=== PATIENT | female | born 1980 | race Caucasian/White ===

== ENCOUNTER 2023-08-06 09:53 | Outpatient (OUT) | payer OTHER, SELFPAY ==
--- NOTE | 2023-08-06 10:05 | MM_ITS ---
Patient Name: DIANE CONRAD MR#: [id number] : 1980 Exam Date: 08/06/2023 Ordering Doctor: DR Carlyle Moseley . RADIOLOGY REPORT PROCEDURE: MM TOMOSYNTHESIS SCREENING BI COMPARISON: MG MAMM SCREEN 3D UYEN CAD, 07/31/2022. INDICATIONS: Screening Calculator Name NCI Breast Cancer Risk Assessment Tool 5 Year Breast Cancer Risk 0.80% Lifetime Breast Cancer Risk 13.50% Personal Breast Cancer No Personal Ovarian Cancer No Treatments None Family Cancers Grandmother-maternal with uterine cancer at age ~55. LOCATION: [facility] BREAST COMPOSITION: Heterogeneously dense,which may obscure small masses. FINDINGS: DIAGNOSTIC CATEGORY 1--NEGATIVE. RIGHT BREAST: No significant suspicious finding. No significant change has occurred. LEFT BREAST: No significant suspicious finding. No significant change has occurred. RECOMMENDATIONS: ROUTINE MAMMOGRAM AND CLINICAL EVALUATION IN 12 MONTHS. PLEASE NOTE: A NORMAL MAMMOGRAM DOES NOT EXCLUDE THE POSSIBILITY OF BREAST CANCER. A CLINICALLY SUSPICIOUS PALPABLE LUMP SHOULD BE BIOPSIED. Dictated by: Roberto Alvarez M.D. on 08/06/2023 at 15:03 Approved by: Roberto Alvarez M.D. on 08/06/2023 at 15:06
== END 2023-08-06 09:54 | disposition home or self-care (01) ==
PROVIDERS: PCP Family Medicine; Visit Provider Obstetrics & Gynecology
DX: Z12.31 Encounter for screening mammogram for malignant neoplasm of breast (principal); Z80.8 Family history of malignant neoplasm of other organs or systems
CPT/HCPCS: 77063; 77067

== ENCOUNTER 2024-04-10 05:44 | Emergency (ER) | payer OTHER, SELFPAY ==
[2024-04-10 05:46] VITALS: BP 164/87; PULSE 98; TEMP 36.4; O2SAT 98; BMI 33.7
--- NOTE | 2024-04-10 06:07 | CT_ITS ---
[address] [address] Patient Name: DIANE CONRAD MRN: [id number] date: 1980 Sex: F Assigned Patient Location: ED.MAIN Current Patient Location: ED.MAIN Accession/Order Number: [id number] Exam Date: 04/10/2024 06:37 Report Date: 04/10/2024 06:59 At the request of: STEVEN JEWELL Procedure: CT abdomen pelvis w con EXAMINATION: CT abdomen pelvis w con HISTORY: epigastic pain COMPARISON: No relevant comparison available. TECHNIQUE: Axial, Coronal, and Sagittal images were obtained without and/or with IV contrast as indicated by examination type. Dose reduction techniques were achieved by using automated exposure control and/or adjustment of mA and/or kV according to patient size and/or use of iterative reconstruction technique. FINDINGS: LUNG BASES: No visible pulmonary or pleural disease. LIVER: No enlargement, atrophy, suspicious density, or significant focal lesion. BILIARY: No dilatation or calcification. PANCREAS: No lesion, fluid collection, or abnormal duct dilatation. SPLEEN: No enlargement or focal lesion. ADRENALS: No mass or enlargement. KIDNEYS: No mass, obstruction, or calcification. BOWEL/MESENTERY: No visible mass, obstruction, or bowel wall thickening. Normal appendix. AORTA/VASCULAR: No aneurysm or dissection. RETROPERITONEUM: No mass or adenopathy. LYMPH NODES: No adenopathy. URINARY BLADDER: No visible focal wall thickening, lesion, or calculus. PELVIC ORGANS: 1.8 cm left ovarian cyst. IUD within endometrial cavity. ABDOMINAL WALL: Tiny fat filled paraumbilical hernia without strangulation. BONES: No bony lesion or fracture. OTHER: Negative. CT/CT abdomen pelvis w con IMPRESSION: 1. Left ovary contains a 1.8 cm cyst of uncertain clinical significance. 2. Tiny fat filled paraumbilical hernia without strangulation. 3. Otherwise unremarkable abdomen and pelvis. Electronically authenticated by: АЛЕКСАНДР CHEUNG Date: 04/10/2024 06:59
--- NOTE | 2024-04-10 06:09 | ECG_ITS ---
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
--- NOTE | 2024-04-10 06:11 | ED.ABDPAIN1 ---
HPI - Abdominal Pain General Chief Complaint: Abdominal Pain Stated Complaint: ABDOMINAL PAIN Time Seen by Provider: 04/10/24 05:47 Source: patient Mode of arrival: walk-in Limitations: no limitations History of Present Illness HPI narrative: 43-year-old female to the emergency department with chief complaint of upper abdominal pain. Is cramping in nature. She says it is 10 out of 10 pain that started 2 AM. She has had similar symptoms with reflux in the past however this feels more severe. Is associated with nausea without vomiting. No fever, sweats, chills. No diarrhea. No chest pain or shortness of breath. She took some Pepcid at home which did not relieve. Related Data Home Medications ?Medication ?Instructions ?Recorded ?Confirmed ezetimibe 10 mg tablet 10 mg PO DAILY 04/10/24 04/10/24 famotidine 40 mg tablet (Pepcid) 40 mg PO DAILY 04/10/24 04/10/24 rosuvastatin 5 mg tablet 5 mg PO DAILY 04/10/24 04/10/24 Allergies Allergy/AdvReac Type Severity Reaction Status Date / Time doxycycline AdvReac Intermediate Abdominal Verified 04/10/24 05:53 Pain Review of Systems ROS Status of ROS 10 or more systems reviewed and unremarkable except as noted in history and below PFSH PFSH Social History Little interest or pleasure in doing things: not at all Feeling down, depressed, or hopeless: not at all Exam Narrative Exam Narrative: VITALS: I have reviewed the triage vital signs. GENERAL: Well developed, well appearing adult in no acute distress. NEURO: Alert and oriented. Moves all extremities. Face is symmetric and expressive. EYES: PERRL. No scleral icterus or conjunctival injection. No discharge. HENT: Normocephalic, atraumatic. Hearing is grossly intact. Nares grossly patent and without discharge. Mucous membranes moist. NECK: No JVD. Patient moves neck without restriction. CARDIO: Rhythm regular. Normal rate. No murmur, rub, or gallop. Pulses equal bilaterally in the upper and lower extremity. No lower extremity edema. PULM: Lungs clear to auscultation in all [place]. No wheezes, rales, or rhonchi. No conversational dyspnea. No splinting, stridor, or accessory muscle use. GI/: Abdomen is soft. Epigastric pain. Normoactive bowel sounds. EXTREMITIES: Symmetric muscle bulk. No joint swelling. No clubbing, cyanosis, or deformity. SKIN: Warm and dry. Normal turgor. No rash or lesions appreciated. PSYCH: Mood, affect, and interaction is appropriate to the setting. Constitutional Vital Signs, click to edit/add: Last Vital Signs Temp 97.6 F 04/10/24 05:46 Pulse 98 H 04/10/24 05:46 Resp 18 04/10/24 05:46 BP 164/87 H 04/10/24 05:46 Pulse Ox 98 04/10/24 05:46 O2 Del Method Room Air 04/10/24 05:46 Course Vital Signs Vital signs: Vital Signs Temperature 97.6 F 04/10/24 05:46 Pulse Rate 98 H 04/10/24 05:46 Respiratory Rate 18 04/10/24 05:46 Blood Pressure 164/87 H 04/10/24 05:46 Pulse Oximetry 98 04/10/24 05:46 Oxygen Delivery Method Room Air 04/10/24 05:46 Temperature 97.6 F 04/10/24 05:46 Pulse Rate 98 H 04/10/24 05:46 Respiratory Rate 18 04/10/24 05:46 Blood Pressure 164/87 H 04/10/24 05:46 Pulse Oximetry 98 04/10/24 05:46 Oxygen Delivery Method Room Air 04/10/24 05:46 MDM - Abdominal Pain MDM Narrative Medical decision making narrative: 43-year-old female to the emergency department chief complaint of epigastric pain. Vital stable, the patient is afebrile. Basic labs, EKG, lipase, CT scan are ordered to evaluate for potential causes of her upper abdominal pain including gastritis, pancreatitis, acute cholecystitis, choledocholithiasis. Care was signed out to Dr. Littlejohn with results of diagnostic workup and disposition pending. Medical Records Attestation: I reviewed the patient's medical records. Lab Data Attestation: I reviewed the patient's lab results. Labs: Lab Results 04/10/24 04/10/24 Range/Units 06:00 06:03 WBC 7.2 (4.0-11.0) 10^3/uL RBC 4.70 (4.20-5.40) 10^6/uL Hgb 13.5 (12.0-16.0) g/dL Hct 40.4 (36.0-48.0) % MCV 86.0 (81.0-99.0) fL MCH 28.7 (26.7-34.0) pg MCHC 33.4 (29.9-35.2) g/dL RDW 12.7 (11.0-15.0) % Plt Count 266 (150-450) 10^3/uL MPV 11.0 (9.5-13.5) fL Neut % (Auto) 70.4 (43.0-75.0) % Lymph % (Auto) 22.8 (20.5-60.0) % [place] % (Auto) 5.2 (1.7-12.0) % Eos % (Auto) 1.0 (0.9-7.0) % Baso % (Auto) 0.3 (0.2-2.0) % Neut # (Auto) 5.0 (1.4-6.5) 10^3/uL Lymph # (Auto) 1.6 (1.2-3.8) 10^3/uL [place] # (Auto) 0.4 (0.3-0.8) 10^3/uL Eos # (Auto) 0.1 (0.0-0.7) 10^3/uL Baso # (Auto) 0.0 (0.0-0.1) 10^3/uL Abs Immat Gran (auto) 0.02 (0.00-0.03) 10^3/uL Imm/Tot Granulo (auto) 0.3 (0.0-0.5) % Sodium 142 (136-145) mmol/L Potassium 4.3 (3.5-5.1) mmol/L Chloride 105 (98-107) mmol/L Carbon Dioxide 26.4 (21.0-32.0) mmol/L Anion Gap 14.9 BUN 12.0 (7.0-18.0) mg/dL Creatinine 0.96 (0.55-1.02) mg/dL Est GFR ( Amer) >60 (>=60 mL/min/1.73m^2) Est GFR (Non-Af Amer) >60 (>=60 mL/min/1.73m^2) BUN/Creatinine Ratio 12.5 Glucose 138 H (74-106) mg/dL Lactate 0.9 (0.4-2.0) mmol/L Calcium 8.9 (8.5-10.1) mg/dL Total Bilirubin 0.4 (0.2-1.0) mg/dL AST 12 L (15-37) U/L ALT 22 (14-59) U/L Alkaline Phosphatase 68 (46-116) U/L Troponin I High Sens <4.0 L (4.0-51.3) pg/mL Total Protein 7.4 (6.4-8.2) g/dL Albumin 3.8 (3.4-5.0) g/dL Globulin 3.6 g/dL Albumin/Globulin Ratio 1.1 Lipase 44.0 (16.0-77.0) U/L Serum HCG, Qual Negative (NEGATIVE) Urine Color Lt. yellow (YELLOW) Urine Clarity Clear (CLEAR) Urine pH 6.0 (5.0-9.0) Ur Specific [place] 1.020 (1.005-1.025) Urine Protein Negative (NEG/TRACE) mg/dL Urine Glucose (UA) Negative (NEGATIVE) mg/dL Urine Ketones Negative (NEGATIVE) mg/dL Urine Occult Blood Negative (NEGATIVE) Urine Nitrite Negative (NEGATIVE) Urine Bilirubin Negative (NEGATIVE) Urine Urobilinogen 0.2 (0.2-1.0) EU/dL Ur Leukocyte Esterase Trace A (NEGATIVE) Urine RBC 0-2 (0-2) #/HPF Urine WBC 2-5 A (NONE SEEN) #/HPF Ur Squamous Epith Cells Rare (NONE/RARE) #/LPF Urine Crystals None seen (None Seen) #/HPF Urine Bacteria Large A (NONE SEEN) #/HPF Urine Casts None seen (NONE SEEN) #/LPF Urine Mucus Trace A (NONE SEEN) Ur Culture Indicated? Yes ECG Data Attestation: I personally reviewed and interpreted this ECG as follows: (Normal sinus rhythm at a rate of 89. No STEMI. Normal QTc.) Discharge Plan Discharge Chief Complaint: Abdominal Pain Clinical Impression: Epigastric abdominal pain Patient Disposition: Still a Patient Prescriptions / Home Meds: No Action ezetimibe 10 mg tablet 10 mg PO DAILY rosuvastatin 5 mg tablet 5 mg PO DAILY famotidine [Pepcid] 40 mg tablet 40 mg PO DAILY Print Language: Irish Referrals: LA GENTILE [Primary Care Provider] - 1 week
[2024-04-10 06:12] LABS: Basophils Percent Auto 0.3 % (0.2-2.0); Eosinophils Absolute Auto 0.1 10^3/uL (0.0-0.7); Hematocrit 40.4 % (36.0-48.0); Hemoglobin 13.5 g/dL (12.0-16.0); Immature Granulocytes Abs Auto 0.02 10^3/uL (0.00-0.03); Immature Granulocytes Pct Auto 0.3 % (0.0-0.5); Lymphocytes Absolute Auto 1.6 10^3/uL (1.2-3.8); Lymphocytes Percent Auto 22.8 % (20.5-60.0); Mean Corpuscular HGB Conc 33.4 g/dL (29.9-35.2); Mean Corpuscular Hemoglobin 28.7 pg (26.7-34.0); Monocytes Absolute Auto 0.4 10^3/uL (0.3-0.8); Monocytes Percent Auto 5.2 % (1.7-12.0); Neutrophils Percent Auto 70.4 % (43.0-75.0); Platelet Count 266 10^3/uL (150-450); Red Cell Distribution Width 12.7 % (11.0-15.0); White Blood Count 7.2 10^3/uL (4.0-11.0)
[2024-04-10 06:13] LABS: Bilirubin Urine NEGATIVE (NEGATIVE); Blood Urine NEGATIVE (NEGATIVE); Clarity Urine CLEAR (CLEAR); Color Urine LT. YELLOW (YELLOW); Glucose Urine UA NEGATIVE (NEGATIVE); Ketones Urine NEGATIVE (NEGATIVE); Leukocyte Esterase Urine TRACE (NEGATIVE); Nitrite Urine NEGATIVE (NEGATIVE); Protein Urine NEGATIVE (NEG/TRACE); Urobilinogen Urine 0.2 EU/dL (0.2-1.0)
[2024-04-10 06:17] LABS: Urine Microscopic Indicated YES
[2024-04-10] MEDS: ONDANSETRON PF 4 MG/2 ML VIAL IV (06:19)
[2024-04-10] MEDS: DICYCLOMINE HCL 20 MG/2 ML VIAL IM (06:19)
[2024-04-10 06:28] LABS: Bacteria Urine LARGE #/HPF (NONE SEEN); Cast Seen? NONE SEEN #/LPF (NONE SEEN); Crystals Seen? None Seen #/HPF (None Seen); Mucus Urine TRACE (NONE SEEN); RBC Urine 0-2 #/HPF (0-2); Squamous Epithelial Cell Urine RARE #/LPF (NONE/RARE); Urine Culture Indicated YES
[2024-04-10 06:30] LABS: HCG Qualitative NEGATIVE (NEGATIVE); Internal Control Within Normal Limits
[2024-04-10 06:32] LABS: Lactate/Lactic Acid 0.9 mmol/L (0.4-2.0)
[2024-04-10 06:33] LABS: Alanine Aminotransferase 22 U/L (14-59); Albumin Globulin Ratio 1.1; Albumin Level 3.8 g/dL (3.4-5.0); Alkaline Phosphatase 68 U/L (46-116); Anion Gap 14.9; Aspartate Amino Transferase 12 U/L (15-37); BUN Creatinine Ratio 12.5; Bilirubin Total 0.4 mg/dL (0.2-1.0); Calcium 8.9 mg/dL (8.5-10.1); Carbon Dioxide 26.4 mmol/L (21.0-32.0); Chloride 105 mmol/L (98-107); Estimated GFR (African America >60 (>=60 mL/min/1.73m^2); Estimated GFR (Non-African Ame >60 (>=60 mL/min/1.73m^2); Globulin 3.6 g/dL; Glucose 138 mg/dL (74-106); Potassium 4.3 mmol/L (3.5-5.1); Sodium 142 mmol/L (136-145); Total Protein 7.4 g/dL (6.4-8.2); Troponin I High Sensitivity <4.0 pg/mL (4.0-51.3)
[2024-04-10] MEDS: MORPHINE SULFATE 4 MG/ML VIAL IV (07:05)
[2024-04-10 07:09] VITALS: BP 137/78; PULSE 107; TEMP 36.8; O2SAT 99
--- NOTE | 2024-04-10 07:44 | ED_ITS ---
HPI - Abdominal Pain General Chief Complaint: Abdominal Pain Stated Complaint: ABDOMINAL PAIN Time Seen by Provider: 04/10/24 05:47 Source: patient Mode of arrival: walk-in Limitations: no limitations History of Present Illness HPI narrative: 43-year-old female presented to the emergency department for epigastric abdominal pain and was initially seen by Dr. Calvillo and signed out to me after discussing the case with him thoroughly. Please see his full history and physical exam Related Data Home Medications ?Medication ?Instructions ?Recorded ?Confirmed ezetimibe 10 mg tablet 10 mg PO DAILY 04/10/24 04/10/24 famotidine 40 mg tablet (Pepcid) 40 mg PO DAILY 04/10/24 04/10/24 rosuvastatin 5 mg tablet 5 mg PO DAILY 04/10/24 04/10/24 Previous Rx's ?Medication ?Instructions ?Recorded acetaminophen 300 mg-codeine 30 mg 1 tab PO Q6H PRN pain 5 days #20 04/10/24 tablet tabs pantoprazole 40 mg tablet,delayed 40 mg PO DAILY #20 tabs 04/10/24 release (Protonix) Allergies Allergy/AdvReac Type Severity Reaction Status Date / Time doxycycline AdvReac Intermediate Abdominal Verified 04/10/24 05:53 Pain PFSH PFSH Social History Little interest or pleasure in doing things: not at all Feeling down, depressed, or hopeless: not at all Exam Constitutional Vital Signs, click to edit/add: Last Vital Signs Temp 98.3 F 04/10/24 07:09 Pulse 107 H 04/10/24 07:09 Resp 24 H 04/10/24 07:09 BP 137/78 04/10/24 07:09 Pulse Ox 99 04/10/24 07:09 O2 Del Method Room Air 04/10/24 07:09 Course Vital Signs Vital signs: Vital Signs Temperature 97.6 F 04/10/24 05:46 Pulse Rate 98 H 04/10/24 05:46 Respiratory Rate 18 04/10/24 05:46 Blood Pressure 164/87 H 04/10/24 05:46 Pulse Oximetry 98 04/10/24 05:46 Oxygen Delivery Method Room Air 04/10/24 05:46 Temperature 98.3 F 04/10/24 07:09 Pulse Rate 107 H 04/10/24 07:09 Respiratory Rate 24 H 04/10/24 07:09 Blood Pressure 137/78 04/10/24 07:09 Pulse Oximetry 99 04/10/24 07:09 Oxygen Delivery Method Room Air 04/10/24 07:09 MDM - Abdominal Pain MDM Narrative Medical decision making narrative: Blood work is negative. CAT scan of the abdomen shows no cause for her symptoms. She likely has GERD and is being prescribed Protonix and Tylenol 3. Follow-up with her PCP. Treatment diagnosis and follow-up were discussed with the patient. Differential Diagnosis Differential diagnosis: Likely abdominal pain, calculus of kidney, constipation, diverticulitis, gastroenteritis, pancreatitis and small bowel obstruction Lab Data Attestation: I reviewed the patient's lab results. Labs: Lab Results 04/10/24 04/10/24 Range/Units 06:00 06:03 WBC 7.2 (4.0-11.0) 10^3/uL RBC 4.70 (4.20-5.40) 10^6/uL Hgb 13.5 (12.0-16.0) g/dL Hct 40.4 (36.0-48.0) % MCV 86.0 (81.0-99.0) fL MCH 28.7 (26.7-34.0) pg MCHC 33.4 (29.9-35.2) g/dL RDW 12.7 (11.0-15.0) % Plt Count 266 (150-450) 10^3/uL MPV 11.0 (9.5-13.5) fL Neut % (Auto) 70.4 (43.0-75.0) % Lymph % (Auto) 22.8 (20.5-60.0) % [place] % (Auto) 5.2 (1.7-12.0) % Eos % (Auto) 1.0 (0.9-7.0) % Baso % (Auto) 0.3 (0.2-2.0) % Neut # (Auto) 5.0 (1.4-6.5) 10^3/uL Lymph # (Auto) 1.6 (1.2-3.8) 10^3/uL [place] # (Auto) 0.4 (0.3-0.8) 10^3/uL Eos # (Auto) 0.1 (0.0-0.7) 10^3/uL Baso # (Auto) 0.0 (0.0-0.1) 10^3/uL Abs Immat Gran (auto) 0.02 (0.00-0.03) 10^3/uL Imm/Tot Granulo (auto) 0.3 (0.0-0.5) % Sodium 142 (136-145) mmol/L Potassium 4.3 (3.5-5.1) mmol/L Chloride 105 (98-107) mmol/L Carbon Dioxide 26.4 (21.0-32.0) mmol/L Anion Gap 14.9 BUN 12.0 (7.0-18.0) mg/dL Creatinine 0.96 (0.55-1.02) mg/dL Est GFR ( Amer) >60 (>=60 mL/min/1.73m^2) Est GFR (Non-Af Amer) >60 (>=60 mL/min/1.73m^2) BUN/Creatinine Ratio 12.5 Glucose 138 H (74-106) mg/dL Lactate 0.9 (0.4-2.0) mmol/L Calcium 8.9 (8.5-10.1) mg/dL Total Bilirubin 0.4 (0.2-1.0) mg/dL AST 12 L (15-37) U/L ALT 22 (14-59) U/L Alkaline Phosphatase 68 (46-116) U/L Troponin I High Sens <4.0 L (4.0-51.3) pg/mL Total Protein 7.4 (6.4-8.2) g/dL Albumin 3.8 (3.4-5.0) g/dL Globulin 3.6 g/dL Albumin/Globulin Ratio 1.1 Lipase 44.0 (16.0-77.0) U/L Serum HCG, Qual Negative (NEGATIVE) Urine Color Lt. yellow (YELLOW) Urine Clarity Clear (CLEAR) Urine pH 6.0 (5.0-9.0) Ur Specific [place] 1.020 (1.005-1.025) Urine Protein Negative (NEG/TRACE) mg/dL Urine Glucose (UA) Negative (NEGATIVE) mg/dL Urine Ketones Negative (NEGATIVE) mg/dL Urine Occult Blood Negative (NEGATIVE) Urine Nitrite Negative (NEGATIVE) Urine Bilirubin Negative (NEGATIVE) Urine Urobilinogen 0.2 (0.2-1.0) EU/dL Ur Leukocyte Esterase Trace A (NEGATIVE) Urine RBC 0-2 (0-2) #/HPF Urine WBC 2-5 A (NONE SEEN) #/HPF Ur Squamous Epith Cells Rare (NONE/RARE) #/LPF Urine Crystals None seen (None Seen) #/HPF Urine Bacteria Large A (NONE SEEN) #/HPF Urine Casts None seen (NONE SEEN) #/LPF Urine Mucus Trace A (NONE SEEN) Ur Culture Indicated? Yes Imaging Data CT scan - abdomen: Radiologist's impression: ITS Impressions Abdomen/Pelvis CT 04/10/24 06:07 IMPRESSION: 1. Left ovary contains a 1.8 cm cyst of uncertain clinical significance. 2. Tiny fat filled paraumbilical hernia without strangulation. 3. Otherwise unremarkable abdomen and pelvis. Electronically authenticated by: АЛЕКСАНДР CHEUNG Date: 04/10/2024 06:59 Discharge Plan Discharge Chief Complaint: Abdominal Pain Clinical Impression: Epigastric abdominal pain Patient Disposition: Home, Self-Care Time of Disposition Decision: 07:39 Condition: Good Mode of Transportation: Private Vehicle Prescriptions / Home Meds: New pantoprazole [Protonix] 40 mg tablet,delayed release (DR/EC) 40 mg PO DAILY Qty: 20 0RF acetaminophen-codeine 300-30 mg tablet 1 tab PO Q6H PRN (Reason: pain) 5 Days Qty: 20 0RF No Action ezetimibe 10 mg tablet 10 mg PO DAILY rosuvastatin 5 mg tablet 5 mg PO DAILY famotidine [Pepcid] 40 mg tablet 40 mg PO DAILY Print Language: Ecuadorean Instructions: GERD (Gastroesophageal Reflux Disease) (ED), Acute Abdominal Pain (ED) Referrals: LA GENTILE [Primary Care Provider] - 1 week
[2024-04-10 07:55] VITALS: PULSE 87; O2SAT 98
[2024-04-10] MEDS: lidocaine HCL 15 ML, MAG HYDROX/ALUMINUM HYD/SIMETH 30 ML, HYOSCYAMINE SULFATE 0.25 MG PO (08:07)
== END 2024-04-10 08:49 | disposition home or self-care (01) ==
PROVIDERS: Student in an Organized Health Care Education/Training Program; Emergency Provider Emergency Medicine; PCP Family Medicine
DX: R10.13 Epigastric pain (principal); N83.202 Unspecified ovarian cyst, left side
CPT/HCPCS: 36415; 74177; 80053; 81001; 83605; 83690; 84484; 84703; 85025; 87086; 93005; 96372; 96374; 96375; 99285; J0500; J2270; J2405; Q9967

== ENCOUNTER 2024-04-27 18:52 | Outpatient (REF) | payer OTHER, SELFPAY ==
--- OUTSIDE RECORDS SUMMARY | 2024-04-27 18:57 | XMS_ITS | CCD ---
Author Organization [facility] Care Team Providers Care News Broadcaster Name Role Phone La Gentile Unavailable Kuns, DO La Primary Care Provider [phone] Seferino, DO La Attending Provider [phone] Canelos, DO La Primary Care Provider DO Yvan Best Emergency Provider JUANA RAYMUNDO Attending Unavailable JUANA RAYMUNDO Attending Unavailable Skylar OBRIEN Referring Unavailable SEFERINO, DR TOVAR Primary Care Unavailable HAY ., DR CROWELL Admitting Unavailable HAY ., DR CROWELL Attending Unavailable HAY ., DR CROWELL Consulting Unavailable CAMILLE ., DR CHENG Admitting Unavailable CAMILLE ., DR CHENG Attending Unavailable KUNMarcelle, DR TOVAR Primary Care Unavailable CAMILLE ., DR CHENG Consulting Unavailable CAMILLE ., DR CHENG Admitting Unavailable CAMILLE ., DR CHENG Attending Unavailable KUNS, DR TOVAR Primary Care Unavailable CAMILLE ., DR CHENG Consulting Unavailable ZIEBER, DR ROBERTO Lentz Consulting Unavailable SEFERINO, DR TOVAR Primary Care Unavailable TEJA Cedeno, SALVATORE Admitting Unavailable TEJA ., SALVATORE Attending Unavailable TEJA Cedeno, SALVATORE Consulting Unavailable SRAVANTHI CARRERA Consulting Unavailable Seferino, DO Tovar Primary Care Provider [phone] Canelos, DO Tovar Attending Provider [phone] Kuns, DO La Primary Care Provider [phone] Kuns, DO La Attending Provider [phone] Kuns, DO La Primary Care Provider [phone] Kuns, DO La Attending Provider [phone] La Gentile Admitting Unavailable Kunmarcelle, La Attending Unavailable Kuns, La Primary Care Unavailable La Gentile Attending Unavailable La Gentile Primary Care Unavailable La Gentile Admitting Unavailable La Gentile Attending Unavailable La Gentile Primary Care Unavailable La Gentile Admitting Unavailable Allergies Allergy Classification Reported Allergen(s) Allergy Type Date of Onset Reaction(s) Facility (19 sources) Doxycycline Drug Allergy 3 stomach upset, Gastrointestinal Upset [facility] (1 source) Doxycycline Drug Allergy 4 [facility] (1 source) Doxycycline Drug Allergy 3 [facility] Medications Current Medications Medication Drug Class(es) Dates Sig (Normalized) Sig (Original) azithromycin 250 mg oral tablet (2 sources) Macrolide Antimicrobial Start: 07-31-2022 Zithromax Z-Ivan 250 MG as directed Orally Jul, Active Start: 01-26-2022 Zithromax Z-Pa k 250 MG as directed Orally Jan, Active dexamethasone 2 mg oral tablet (1 source) Corticosteroid Start: 05-19-2021 Dexamethasone 2 MG 1 tablet Orally TID X 3 DAYS, BOD X 3 DAYS THEN DAILY X 3 DAYS May, Active ezetimibe 10 mg oral tablet (12 sources) Dietary Cholesterol Absorption Inhibitor Start: 08-02-2023 End: 10-21-2023 take 10 mg by mouth once daily Ezetimibe Active 10 MG PO Daily October 21, 2023 10:02am Start: 02-17-2022 take 1 tablet by treasure th every twenty-four hours Zetia 10 MG 1 tablet Orally Once a day for 90 days Feb, Active 30 actuat fluticasone furoate 0.1 mg/actuat / umeclidinium 0.0625 mg/actuat / vilanterol 0.025 mg/actuat dry powder inhaler (3 sources) Anticholinergic, Corticosteroid, beta2-Adrenergic Agonist Start: 07-31-2022 take 1 puff(s) by inhalation once daily Trelegy Ellipta 100-62.5-25 MCG/ACT 1 puff Inhalation Once a day *samples* Jul, Active Start: 05-19-2021 take 1 puff(s) by in halation once daily Trelegy Ellipta 100-62.5-25 MCG/INH 1 puff Inhalation Once a day samples May, Active ibuprofen 600 mg oral tablet (13 sources) Nonsteroidal Anti-inflammatory Drug Start: 07-16-2022 take 600 mg by mouth every six hours at mealtime Ibuprofen Active 600 MG PO Q6H 20 5 July 16, 2022 9:42am take with food take 1 tablet by treasure th three times daily at mealtime as needed Ibuprofen 200 MG 1 tablet with food or milk as needed Orally Three times a day Active levoFLOXacin 500 mg oral tablet (1 source) Quinolone Antimicrobial Start: 05-19-2021 take 1 tablet by mouth every twenty-four hours Levaquin 500 MG 1 tablet Orally Once a day for 10 day(s) May, Active levonorgestrel 0.189114 mg/hr intrauterine system (17 sources) Progestin, Progestin-containi ng Intrauterine Device Start: 08-02-2023 Levonorgestrel (Mirena) 21 mcg/24 hours (8 yrs) 52 mg intrauterine device Active INTRAUTERI August 02, 2023 12:00am Mirena Active methylPREDNISolone 4 mg oral tablet (10 sources) Corticosteroid Start: 02-04-2023 Medrol 4 MG as directed Orally Jan, Active Start: 01-26-2022 Medrol 4 MG as directed Orally Jan, Active Start: 02-02-2018 End: 08-02-2023 Methylprednisolone Discontin ued 0 .ROUTE .COMPLEX February 02, 2018 12:00am August 02, 2023 3:26pm TAKE ONE ROW OF TABLETS EACH DAY INSTRUCTED ON THE PACKAGE Start: 02-02-2018 Methylpredniso lone Active 0 .ROUTE .COMPLEX February 01, 2018 11:00pm TAKE ONE ROW OF TABLETS EACH DAY INSTRUCTED ON THE PACKAGE Start: 02-02-2018 Methylpredniso lone Active 0 .ROUTE .COMPLEX February 02, 2018 12:00am TAKE ONE ROW OF TABLETS EACH DAY INSTRUCTED ON THE PACKAGE permethrin 50 mg/ml topical cream (1 source) Pyrethroid Start: 01-26-2022 Permethrin 5 % 1 application Externally apply at bedtime , wash off in the morning Jan, Active predniSONE 10 mg oral tablet (5 sources) Start: 07-07-2022 predniSONE 10 MG 1 tablet TID for 3 days and then 1 BID for 3 days and then 1 daily for 3 days and then stop Orally Once a day for 9 days Jun, Active Start: 02-04-2018 predniSONE 20 MG 1 tablet with food or milk Orally 1 tab TID x 3 days, 1 tab BID x 3 days, 1 tab QD x 3 days for 9 days Jan, Active Completed/Discontinued Medications Medication Drug Class(es) Dates Sig (Normalized) Sig (Original) methocarbamol 750 mg oral tablet (7 sources) Muscle Relaxant Start: 07-16-2022 End: 08-02-2023 take 750 mg by mouth three times daily Methocarbamol Discontinued 750 MG PO Three times daily July 16, 2022 9:42am August 02, 2023 3:26pm take 1 tablet by treasure th every four hours Methocarbamol 750 MG 1 tablet Orally fern ry 4 hrs PRN Active pantoprazole 40 mg delayed release oral tablet (6 sources) Proton Pump Inhibitor Start: 07-16-2022 End: 08-02-2023 take 40 mg by mouth once daily Pantoprazole Discontinued 40 MG PO Daily July 16, 2022 1:00am August 02, 2023 3:26pm rosuvastatin calcium 5 mg oral tablet (20 sources) HMG-CoA Reductase Inhibitor Start: 05-29-2021 End: 10-21-2023 take 5 mg by mouth once daily Rosuvastatin Discontinued 5 MG PO Daily July 16, 2022 1:00am October 21, 2023 10:02am Problems Active Problems Problem Classification Problem Date Documented Da te Episodic/Chronic Abdominal pain (6 sources) Epigastric pain; Translations: [Unspecified abdominal pain] Onset: 3 Episodic Contraceptive and procreative management (1 source) Presence of (intrauterine) contraceptive device; Translations: [PRESENCE IU CONTRACEPT DEVICE] Onset: 3 Episodic Disorders of lipid metabolism (20 sources) Hyperlipidemia; Translations: [Hyperlipidemia, unspecified] Onset: 2 Resolved: 2 Chronic Esophageal disorders (17 sources) Gastroesophageal reflux disease; Translations: [Gastro-esophageal reflux disease without esophagitis] Onset: 2 Resolved: 2 Chronic Gastritis and duodenitis (1 source) Gastritis, unspecified, without bleeding; Translations: [GASTRITIS UNS WITHOUT BLEEDING] Onset: 3 Episodic Genitourinary symptoms and ill-defined conditions (4 sources) Genuine stress incontinence; Translations: [Stress incontinence (female) (male)] Chronic Headache; including migraine (12 sources) Headache; Translations: [Headache] Episodic Immunizations and screening for infectious disease (1 source) Encounter for screening for human papillomavirus (HPV); Translations: [ENC SCREENING HUMAN PAPILLOMAVIRUS] Onset: 3 Episodic Other connective tissue disease (1 source) Pain in left foot; Translations: [Pain in limb] 10-21-2023 Episodic Other connective tissue disease (1 source) Plantar fascial fibromatosis; Translations: [Plantar fascial fibromatosis] 10-21-2023 Episodic Other gastrointestinal disorders (12 sources) Dysphagia; Translations: [Dysphagia, unspecified] Episodic Other lower respiratory disease (12 sources) Dyspnea on exertion; Translations: [Shortness of breath] Episodic Other nervous system disorders (2 sources) Paresthesia of right lower limb; Translations: [Paresthesia of skin] Episodic Other nervous system disorders (2 sources) Paresthesia of right upper limb; Translations: [Paresthesia of skin] Episodic Other nervous system disorders (1 source) Paresthesia; Translations: [Paresthesia of skin] Episodic Other nervous system disorders (1 source) Skin sensation disturbance; Translations: [Paresthesia of skin] Episodic Other non-traumatic joint disorders (14 sources) Hip pain; Translations: [Pain in left hip] Episodic Other non-traumatic joint disorders (1 source) Pain in right hip Episodic Other non-traumatic joint disorders (1 source) Pain in right shoulder Episodic Other nutritional; endocrine; and metabolic disorders (12 sources) Body mass index 30+ - obesity; Translations: [Body mass index (BMI) 30.0-30.9, adult] Chronic Other screening for suspected conditions (not mental disorders or infectious disease) (8 sources) Encounter for screening mammogram for malignant neoplasm of breast; Translations: [Encounter for screening for malignant neoplasm of cervix] Onset: 3 Episodic Other upper respiratory infections (15 sources) Chronic sinusitis; Translations: [Chronic sinusitis, unspecified] Chronic Residual codes; unclassified (12 sources) Symptom: generalized; Translations: [Other general symptoms and signs] Episodic Residual codes; unclassified (12 sources) Forgetful; Translations: [Other general symptoms and signs] Episodic Residual codes; unclassified (1 source) Family history of malignant neoplasm of other organs or systems; Translations: [FAM HX MALIG NEOPLASM OTH ORGN/SYS] Onset: 3 Episodic Spondylosis; intervertebral disc disorders; other back problems (20 sources) Neck pain; Translations: [Cervicalgia] Onset: 3 Episodic Sprains and strains (6 sources) Low back strain; Translations: [Strain of muscle, fascia and tendon of lower back, initial encounter] 07-16-2022 Episodic Transient cerebral ischemia (4 sources) Transient cerebral ischemia; Translations: [Transient cerebral ischemic attack, unspecified] Onset: 3 Chronic Past or Other Problems Problem Classification Problem Date Documented Da te Episodic/Chronic Other connective tissue disease (2 sources) Myalgia, unspecified site; Translations: [Myalgia, unspecified site] Onset: 02-02-2023 Episodic Other nervous system disorders (6 sources) Paresthesia of skin; Translations: [Paresthesia of skin] Onset: 01-15-2023 Episodic Other non-traumatic joint disorders (2 sources) Pain in unspecified joint; Translations: [Pain in unspecified joint] Onset: 02-02-2023 Episodic Other upper respiratory infections (1 source) Acute pharyngitis, unspecified Onset: 09-18-2021 Resolved: 09-18-2021 Episodic Unclassified (4 sources) Cough R05.9 Onset: 05-19-2021 Resolved: 09-18-2021 Viral infection (12 sources) COVID-19; Translations: [Lab test positive for detection of COVID-19 virus] Results Test Name Value Interpretation Reference Range Facility Alanine aminotransferase [En zymatic activity/volume] in Serum or PlasmaOrdered By: La Gentile on 10-20-2023 ALT [Catalytic activity/Vol] 16 U/L Normal 7-52 [facility] Comment on above: Order Comment: Reaso n for Exam Hyperlipidemia Performed By: #### C MP, LIPID #### [address] Albumin [Mass/volume] in Ser um or Plasma by Bromocresol green (BCG) dye binding methoOrdered By: La Gentile on 10-20-2023 Albumin BCG dye [Mass/Vol] 4.3 g/dL 3.5-5.7 [facility] Alkaline phosphatase [Enzyma tic activity/volume] in Serum or PlasmaOrdered By: La Gentile on 10-20-2023 ALP [Catalytic activity/Vol] 52 U/L Normal 34-104 [facility] Comment on above: Order Comment: Reaso n for Exam Hyperlipidemia Performed By: #### C MP, LIPID #### [facility] [address] Aspartate aminotransferase [ Enzymatic activity/volume] in Serum or PlasmaOrdered By: La Gentile on 10-20-2023 AST [Catalytic activity/Vol] 14 U/L Normal 13-39 [facility] Comment on above: Order Comment: Reaso n for Exam Hyperlipidemia Performed By: #### C MP, LIPID #### [address] Bilirubin.total [Mass/volume ] in Serum or PlasmaOrdered By: La Gentile on 10-20-2023 Bilirubin [Mass/Vol] 0.7 mg/dL Normal 0.3-1.0 [facility] Comment on above: Order Comment: Reaso n for Exam Hyperlipidemia Performed By: #### C MP, LIPID #### [place] [address] [place] Calcium [Mass/volume] in Ser um or PlasmaOrdered By: La Gentile on 10-20-2023 Calcium [Mass/Vol] 9.1 mg/dL Normal 8.6-10.3 [facility] Comment on above: Order Comment: Reaso n for Exam Hyperlipidemia Performed By: #### C MP, LIPID #### [place] [address] [place] Carbon dioxide, total [Moles /volume] in Serum or PlasmaOrdered By: La Gentile on 10-20-2023 CO2 [Moles/Vol] 27.0 mmol/L Normal 21.0-31.0 [facility] Comment on above: Order Comment: Reaso n for Exam Hyperlipidemia Performed By: #### C MP, LIPID #### [place] [id number] [place] Chloride [Moles/volume] in S aditi or PlasmaOrdered By: La Gentile on 10-20-2023 Chloride [Moles/Vol] 106 mmol/L Normal 98-107 [facility] Comment on above: Order Comment: Reaso n for Exam Hyperlipidemia Performed By: #### C MP, LIPID #### [facility] [address] [place] [address] [place] Cholesterol [Mass/volume] in Serum or PlasmaOrdered By: La Gentile on 10-20-2023 Cholesterol [Mass/Vol] 167 mg/dL Normal 140-200 [facility] Comment on above: Chol less than 200 m g/dl low riskChol 201-239 mg/dl borderline riskChol 240 mg/dl and greater high risk Order Comment: Reaso n for Exam Hyperlipidemia Result Comment: Chol less than 200 mg/dl low risk Chol 201-239 mg/dl borderline risk Chol 240 mg/dl and greater high risk Performed By: #### C MP, LIPID #### [facility] [address] [place] [address] [place] Cholesterol in LDL Calc [Mas s/Vol]Ordered By: La Gentile on 10-20-2023 Cholesterol in LDL [Mass/Vol] 84 mg/dL 0-100 [facility] Comment on above: LDL ATP III CLASSIFI CATIONLDL less than 100 mg/dL OptimalLDL 100-129 mg/dL Near or above optimalLDL 130-159 mg/dL Borderline highLDL 160-189 mg/dL HighLDL greater than 189 mg/dL Very high Cholesterol in VLDL Calc [Ma ss/Vol]Ordered By: La Gentile on 10-20-2023 Cholesterol in VLDL [Mass/Vol] 36 mg/dL [facility] Comprehensive Metabolic Pane kenya 10-20-2023 Albumin [Mass/Vol] 4.3 g/dL Normal 3.5-5.7 [facility] Comment on above: Order Comment: Reaso n for Exam Hyperlipidemia Performed By: #### C MP, LIPID #### [facility] [address] [place] [address] [place] GFR/1.73 sq M.predicted MDRD (S/P/Bld) [Vol rate/Area] mL/min/{1.73_m2} Normal [facility] Comment on above: Order Comment: Reaso n for Exam Hyperlipidemia Performed By: #### C MP, LIPID #### [facility] [address] [place] [id number] [facility] Creatinine [Mass/volume] in Serum or PlasmaOrdered By: La Gentile on 10-20-2023 Creatinine [Mass/Vol] 0.81 mg/dL Normal 0.60-1.20 [facility] Comment on above: Order Comment: Reaso n for Exam Hyperlipidemia Performed By: #### C MP, LIPID #### [facility] [address] [place] [address] [place] Glucose [Mass/volume] in Ser um or PlasmaOrdered By: La Gentile on 10-20-2023 Glucose [Mass/Vol] 109 mg/dL High 70-100 [facility] Comment on above: ADA recommended refe rence rangeRandom Glucose Reference Range is dependent on time and content of last meal. Glucose of more than 200 mg/dL in a nonstressed, ambulatory subject supports the diagnosis of Diabetes Mellitus. Order Comment: Reaso n for Exam Hyperlipidemia Result Comment: Earth om Glucose Reference Range is dependent on time and content of last meal. Glucose of more than 200 mg/dL in a nonstressed, ambulatory subject supports the diagnosis of Diabetes Mellitus. ADA recommended reference range Performed By: #### C MP, LIPID #### [facility] [address] [place] [id number] [facility] Lipid Panelon 10-20-2023 LDL Cholesterol,Calculated 84 mg/dL Normal 0-100 [facility] Comment on above: Order Comment: Reaso n for Exam Hyperlipidemia Result Comment: LDL ATP III CLASSIFICATION LDL less than 100 mg/dL Optimal LDL 100-129 mg/dL Near or above optimal LDL 130-159 mg/dL Borderline high LDL 160-189 mg/dL High LDL greater than 189 mg/dL Very high Performed By: #### C MP, LIPID #### [facility] [address] [place] [id number] [facility] Triglyceride w/Reflex 183 mg/dL High 0-149 [facility] Comment on above: Order Comment: Reaso n for Exam Hyperlipidemia Result Comment: TRIG ATP III CLASSIFICATION TRIG less than 150 mg/dL Normal TRIG 150-199 mg/dL Borderline high TRIG 200-500 mg/dL High TRIG greater than 500 mg/dL Very high Standard traceable to the Center for Disease Conrtrol and Prevention (CDC) test method. Performed By: #### C MP, LIPID #### [facility] [address] VLDL CHOLESTEROL 36 mg/dL Normal [facility] Comment on above: Order Comment: Reaso n for Exam Hyperlipidemia Performed By: #### C MP, LIPID #### [address] No Panel InformationOrdered By: La Gentile on 10-20-2023 Estimated GFR (CKD-EPI) > 60.0 mL/Min [facility] Creatinine Clearance (Chem N/A [facility] Potassium [Moles/volume] in Serum or PlasmaOrdered By: La Gentile on 10-20-2023 Potassium [Moles/Vol] 4.2 mmol/L Normal 3.5-5.1 [facility] Comment on above: Order Comment: Reaso n for Exam Hyperlipidemia Performed By: #### C MP, LIPID #### [address] Protein [Mass/volume] in Ser um or PlasmaOrdered By: La Gentile on 10-20-2023 Protein [Mass/Vol] 6.7 g/dL Normal 6.4-8.9 [facility] Comment on above: Order Comment: Reaso n for Exam Hyperlipidemia Performed By: #### C MP, LIPID #### [address] Serum globulin measurement b y calculation (mass/volume)Ordered By: La Gentile on 10-20-2023 Globulin (S) [Mass/Vol] 2.4 g/dL Normal [facility] Comment on above: Order Comment: Reaso n for Exam Hyperlipidemia Performed By: #### C MP, LIPID #### [address] Serum or plasma albumin/glob ulin mass ratioOrdered By: La Gentile on 10-20-2023 Albumin/Globulin [Mass ratio] 1.8 {ratio} Normal [facility] Comment on above: Order Comment: Reaso n for Exam Hyperlipidemia Performed By: #### C MP, LIPID #### [facility] [address] Serum or plasma anion gap de terminationOrdered By: La Gentile on 10-20-2023 Anion gap [Moles/Vol] 9.2 mmol/L Normal 6.0-15.0 [facility] Comment on above: Order Comment: Reaso n for Exam Hyperlipidemia Performed By: #### C MP, LIPID #### [facility] [address] Serum or plasma high density lipoprotein (HDL) cholesterol measurementOrdered By: La Gentile on 10-20-2023 Cholesterol in HDL [Mass/Vol] 46 mg/dL Normal 23-92 [facility] Comment on above: HDL CHOL ATP-III CLA SSIFICATION Cardiovascular RiskHDL > or equal to 60 mg/dL LOWHDL < 40 mg/dL HIGH Order Comment: Reaso n for Exam Hyperlipidemia Result Comment: HDL CHOL ATP-III CLASSIFICATION Cardiovascular Risk HDL > or equal to 60 mg/dL LOW HDL < 40 mg/dL HIGH Performed By: #### C MP, LIPID #### [facility] [address] [place] [address] Serum or plasma total choles terol/high density lipoprotein (HDL) cholesterol mass ratOrdered By: La Gentile on 10-20-2023 Cholesterol.total/Ivette sterol in HDL [Mass ratio] 3.6 {ratio} Normal <5.0 [facility] Comment on above: Order Comment: Reaso n for Exam Hyperlipidemia Result Comment: PERF ORMED BY: [place] [address] PATHOLOGIST MANAGER MERCHANDISE MARLENY VILLEGAS M.D. Performed By: #### C MP, LIPID #### [facility] [address] [place] [address] Sodium [Moles/volume] in Ser um or PlasmaOrdered By: La Gentile on 10-20-2023 Sodium [Moles/Vol] 138 mmol/L Normal 136-145 [facility] Comment on above: Order Comment: Reaso n for Exam Hyperlipidemia Performed By: #### C MP, LIPID #### [facility] [address] [place] [id number] [place] Triglyceride [Mass/volume] i n Serum or PlasmaOrdered By: La Gentile on 10-20-2023 Triglyceride [Mass/Vol] 183 mg/dL 0-149 [facility] Comment on above: TRIG ATP III CLASSIF ICATIONTRIG less than 150 mg/dL NormalTRIG 150-199 mg/dL Borderline highTRIG 200-500 mg/dL High TRIG greater than 500 mg/dL Very highStandard traceable to the Center for Disease Conrtrol and Prevention (CDC) test method. Urea nitrogen [Mass/volume] in Serum or PlasmaOrdered By: La Gentile on 10-20-2023 Urea nitrogen [Mass/Vol] 8 mg/dL Normal 7-25 [facility] Comment on above: Order Comment: Reaso n for Exam Hyperlipidemia Performed By: #### C MP, LIPID #### [facility] [address] Alanine aminotransferase [En zymatic activity/volume] in Serum or PlasmaOrdered By: La Gentile on 02-02-2023 ALT [Catalytic activity/Vol] 15 U/L Normal 7-52 [facility] Comment on above: Order Comment: Reaso n for Exam Paresthesia of right arm;Paresthesia of right leg;Myalgia;Ar Performed By: #### T SH3, CBC, CMP, LIPID #### [facility] [address] [place] [id number] [place] Albumin [Mass/volume] in Ser um or Plasma by Bromocresol green (BCG) dye binding methoOrdered By: La Gentile on 02-02-2023 Albumin BCG dye [Mass/Vol] 4.4 g/dL 3.5-5.7 [facility] Alkaline phosphatase [Enzyma tic activity/volume] in Serum or PlasmaOrdered By: La Gentile on 02-02-2023 ALP [Catalytic activity/Vol] 55 U/L Normal 34-104 [facility] Comment on above: Order Comment: Reaso n for Exam Paresthesia of right arm;Paresthesia of right leg;Myalgia;Ar Performed By: #### T SH3, CBC, CMP, LIPID #### [facility] [address] Aspartate aminotransferase [ Enzymatic activity/volume] in Serum or PlasmaOrdered By: La Gentile on 02-02-2023 AST [Catalytic activity/Vol] 13 U/L Normal 13-39 [facility] Comment on above: Order Comment: Reaso n for Exam Paresthesia of right arm;Paresthesia of right leg;Myalgia;Ar Performed By: #### T SH3, CBC, CMP, LIPID #### [facility] [address] Automated basophil %Ordered By: La Gentile on 02-02-2023 Basophils/100 WBC (Bld) 0.4 % Normal . [facility] Comment on above: Order Comment: Reaso n for Exam Paresthesia of right arm;Paresthesia of right leg;Myalgia;Ar Performed By: #### T SH3, CBC, CMP, LIPID #### [address] Automated basophil countOrde red By: La Gentile on 02-02-2023 Basophils (Bld) [#/Vol] 0.0 10*3/uL Normal 0.0-0.2 [facility] Comment on above: Order Comment: Reaso n for Exam Paresthesia of right arm;Paresthesia of right leg;Myalgia;Ar Result Comment: PERF ORMED BY: [place] [address] PATHOLOGIST MANAGER MERCHANDISE MARLENY VILLEGAS M.D. Performed By: #### T SH3, CBC, CMP, LIPID #### [address] Automated blood monocyte cou ntOrdered By: La Gentile on 02-02-2023 Monocytes (Bld) [#/Vol] 0.4 10*3/uL Normal 0.0-0.8 [facility] Comment on above: Order Comment: Reaso n for Exam Paresthesia of right arm;Paresthesia of right leg;Myalgia;Ar Performed By: #### T SH3, CBC, CMP, LIPID #### [facility] [address] Automated eosinophil %Ordere d By: La Gentile on 02-02-2023 Eosinophils/100 WBC (Bld) 1.7 % Normal . [facility] Comment on above: Order Comment: Reaso n for Exam Paresthesia of right arm;Paresthesia of right leg;Myalgia;Ar Performed By: #### T SH3, CBC, CMP, LIPID #### [facility] [address] Automated eosinophil countOr dered By: La Gentile on 02-02-2023 Eosinophils (Bld) [#/Vol] 0.1 10*3/uL Normal 0.0-0.45 [facility] Comment on above: Order Comment: Reaso n for Exam Paresthesia of right arm;Paresthesia of right leg;Myalgia;Ar Performed By: #### T SH3, CBC, CMP, LIPID #### [facility] [address] Automated monocyte %Ordered By: La Gentile on 02-02-2023 Monocytes/100 WBC (Bld) 6.6 % Normal . [facility] Comment on above: Order Comment: Reaso n for Exam Paresthesia of right arm;Paresthesia of right leg;Myalgia;Ar Performed By: #### T SH3, CBC, CMP, LIPID #### [facility] [address] Automated neutrophil %Ordere d By: La Gentile on 02-02-2023 Neutrophils/100 WBC (Bld) 64.5 % Normal . [facility] Comment on above: Order Comment: Reaso n for Exam Paresthesia of right arm;Paresthesia of right leg;Myalgia;Ar Performed By: #### T SH3, CBC, CMP, LIPID #### [facility] [address] Bilirubin.total [Mass/volume ] in Serum or PlasmaOrdered By: La Gentile on 02-02-2023 Bilirubin [Mass/Vol] 0.7 mg/dL Normal 0.3-1.0 [facility] Comment on above: Order Comment: Reaso n for Exam Paresthesia of right arm;Paresthesia of right leg;Myalgia;Ar Performed By: #### T SH3, CBC, CMP, LIPID #### [facility] [address] [place] [id number] [place] Calcium [Mass/volume] in Ser um or PlasmaOrdered By: La Gentile on 02-02-2023 Calcium [Mass/Vol] 9.1 mg/dL Normal 8.6-10.3 [facility] Comment on above: Order Comment: Reaso n for Exam Paresthesia of right arm;Paresthesia of right leg;Myalgia;Ar Performed By: #### T SH3, CBC, CMP, LIPID #### [facility] [address] [place] [id number] [place] Carbon dioxide, total [Moles /volume] in Serum or PlasmaOrdered By: La Gentile on 02-02-2023 CO2 [Moles/Vol] 26.1 mmol/L Normal 21.0-31.0 [facility] Comment on above: Order Comment: Reaso n for Exam Paresthesia of right arm;Paresthesia of right leg;Myalgia;Ar Performed By: #### T SH3, CBC, CMP, LIPID #### [facility] [address] [place] [id number] [place] Chloride [Moles/volume] in S aditi or PlasmaOrdered By: La Gentile on 02-02-2023 Chloride [Moles/Vol] 106 mmol/L Normal 98-107 [facility] Comment on above: Order Comment: Reaso n for Exam Paresthesia of right arm;Paresthesia of right leg;Myalgia;Ar Performed By: #### T SH3, CBC, CMP, LIPID #### [facility] [address] [place] [id number] [place] Cholesterol [Mass/volume] in Serum or PlasmaOrdered By: La Gentile on 02-02-2023 Cholesterol [Mass/Vol] 206 mg/dL High 140-200 [facility] Comment on above: Chol less than 200 m g/dl low riskChol 201-239 mg/dl borderline riskChol 240 mg/dl and greater high risk Order Comment: Reaso n for Exam Paresthesia of right arm;Paresthesia of right leg;Myalgia;Ar Result Comment: Chol less than 200 mg/dl low risk Chol 201-239 mg/dl borderline risk Chol 240 mg/dl and greater high risk Performed By: #### T SH3, CBC, CMP, LIPID #### [facility] [address] Cholesterol in LDL Calc [Mas s/Vol]Ordered By: La Gentile on 02-02-2023 Cholesterol in LDL [Mass/Vol] 112 mg/dL 0-100 [facility] Comment on above: LDL ATP III CLASSIFI CATIONLDL less than 100 mg/dL OptimalLDL 100-129 mg/dL Near or above optimalLDL 130-159 mg/dL Borderline highLDL 160-189 mg/dL HighLDL greater than 189 mg/dL Very high Cholesterol in VLDL Calc [Ma ss/Vol]Ordered By: La Gentile on 02-02-2023 Cholesterol in VLDL [Mass/Vol] 47 mg/dL [facility] Complete Blood Count Auto Di ffon 02-02-2023 Mean Corpuscular HGB Conc 33.4 g/dL Normal 32.0-35.0 [facility] Comment on above: Order Comment: Reaso n for Exam Paresthesia of right arm;Paresthesia of right leg;Myalgia;Ar Performed By: #### T SH3, CBC, CMP, LIPID #### [facility] [address] NRBC% 0.1 /100{WBC} Normal 0-0.5 [facility] Comment on above: Order Comment: Reaso n for Exam Paresthesia of right arm;Paresthesia of right leg;Myalgia;Ar Performed By: #### T SH3, CBC, CMP, LIPID #### [facility] [address] Comprehensive Metabolic Pane ken[place] 02-02-2023 Albumin [Mass/Vol] 4.4 g/dL Normal 3.5-5.7 [facility] Comment on above: Order Comment: Reaso n for Exam Paresthesia of right arm;Paresthesia of right leg;Myalgia;Ar Performed By: #### T SH3, CBC, CMP, LIPID #### [address] GFR/1.73 sq M.predicted MDRD (S/P/Bld) [Vol rate/Area] mL/min/{1.73_m2} Normal [facility] Comment on above: Order Comment: Reaso n for Exam Paresthesia of right arm;Paresthesia of right leg;Myalgia;Ar Performed By: #### T SH3, CBC, CMP, LIPID #### [address] Creatinine [Mass/volume] in Serum or PlasmaOrdered By: La Gentile on 02-02-2023 Creatinine [Mass/Vol] 0.87 mg/dL Normal 0.60-1.20 [facility] Comment on above: Order Comment: Reaso n for Exam Paresthesia of right arm;Paresthesia of right leg;Myalgia;Ar Performed By: #### T SH3, CBC, CMP, LIPID #### [address] Erythrocyte distribution wid th [Ratio] by Automated countOrdered By: La Gentile on 02-02-2023 Erythrocyte distribution width (RBC) [Ratio] 13.5 % Normal 11.9-15.3 [facility] Comment on above: Order Comment: Reaso n for Exam Paresthesia of right arm;Paresthesia of right leg;Myalgia;Ar Performed By: #### T SH3, CBC, CMP, LIPID #### [address] Erythrocytes [#/volume] in B lood by Automated countOrdered By: La Gentile on 02-02-2023 RBC (Bld) [#/Vol] 4.58 10*6/uL Normal 3.60-5.00 [facility] Comment on above: Order Comment: Reaso n for Exam Paresthesia of right arm;Paresthesia of right leg;Myalgia;Ar Performed By: #### T SH3, CBC, CMP, LIPID #### [place] [id number] [place] Glucose [Mass/volume] in Ser um or PlasmaOrdered By: La Gentile on 02-02-2023 Glucose [Mass/Vol] 100 mg/dL Normal 70-100 [facility] Comment on above: ADA recommended refe rence rangeRandom Glucose Reference Range is dependent on time and content of last meal. Glucose of more than 200 mg/dL in a nonstressed, ambulatory subject supports the diagnosis of Diabetes Mellitus. Order Comment: Reaso n for Exam Paresthesia of right arm;Paresthesia of right leg;Myalgia;Ar Result Comment: Earth om Glucose Reference Range is dependent on time and content of last meal. Glucose of more than 200 mg/dL in a nonstressed, ambulatory subject supports the diagnosis of Diabetes Mellitus. ADA recommended reference range Performed By: #### T SH3, CBC, CMP, LIPID #### [address] Hematocrit [Volume Fraction] of Blood by Automated countOrdered By: La Gentile on 02-02-2023 Hematocrit (Bld) [Volume fraction] 38.3 % Normal 34.0-46.4 [facility] Comment on above: Order Comment: Reaso n for Exam Paresthesia of right arm;Paresthesia of right leg;Myalgia;Ar Performed By: #### T SH3, CBC, CMP, LIPID #### [address] Hemoglobin [Mass/volume] in BloodOrdered By: La Gentile on 02-02-2023 Hemoglobin (Bld) [Mass/Vol] 12.8 g/dL Normal 11.8-15.4 [facility] Comment on above: Order Comment: Reaso n for Exam Paresthesia of right arm;Paresthesia of right leg;Myalgia;Ar Performed By: #### T SH3, CBC, CMP, LIPID #### [facility] [address] [place] [address] Leukocytes [#/volume] correc justin for nucleated erythrocytes in Blood by Automated counOrdered By: La Gentile on 02-02-2023 WBC corrected for nucl RBC Auto (Bld) [#/Vol] 6.1 10*3/uL 3.8-11.6 [facility] Leukocytes [#/volume] in Blo od by Automated countOrdered By: La Gentile on 02-02-2023 WBC (Bld) [#/Vol] 6.1 10*3/uL Normal 3.8-11.6 [facility] Comment on above: Order Comment: Reaso n for Exam Paresthesia of right arm;Paresthesia of right leg;Myalgia;Ar Performed By: #### T SH3, CBC, CMP, LIPID #### [facility] [address] Lipid Panelon 02-02-2023 LDL Cholesterol,Calculated 112 mg/dL High 0-100 [facility] Comment on above: Order Comment: Reaso n for Exam Paresthesia of right arm;Paresthesia of right leg;Myalgia;Ar Result Comment: LDL ATP III CLASSIFICATION LDL less than 100 mg/dL Optimal LDL 100-129 mg/dL Near or above optimal LDL 130-159 mg/dL Borderline high LDL 160-189 mg/dL High LDL greater than 189 mg/dL Very high Performed By: #### T SH3, CBC, CMP, LIPID #### [facility] [address] Triglyceride w/Reflex 236 mg/dL High 0-149 [facility] Comment on above: Order Comment: Reaso n for Exam Paresthesia of right arm;Paresthesia of right leg;Myalgia;Ar Result Comment: TRIG ATP III CLASSIFICATION TRIG less than 150 mg/dL Normal TRIG 150-199 mg/dL Borderline high TRIG 200-500 mg/dL High TRIG greater than 500 mg/dL Very high Standard traceable to the Center for Disease Conrtrol and Prevention (CDC) test method. Performed By: #### T SH3, CBC, CMP, LIPID #### [facility] [address] VLDL CHOLESTEROL 47 mg/dL Normal [facility] Comment on above: Order Comment: Reaso n for Exam Paresthesia of right arm;Paresthesia of right leg;Myalgia;Ar Performed By: #### T SH3, CBC, CMP, LIPID #### [facility] [address] [place] [id number] [place] Lymphocytes [#/volume] in Bl ood by Automated countOrdered By: La Gentile on 02-02-2023 Lymphocytes (Bld) [#/Vol] 1.6 10*3/uL Normal 1.00-4.8 [facility] Comment on above: Order Comment: Reaso n for Exam Paresthesia of right arm;Paresthesia of right leg;Myalgia;Ar Performed By: #### T SH3, CBC, CMP, LIPID #### [facility] [address] Lymphocytes/100 leukocytes i n Blood by Automated countOrdered By: La Gentile on 02-02-2023 Lymphocytes/100 WBC (Bld) 26.8 % Normal . [facility] Comment on above: Order Comment: Reaso n for Exam Paresthesia of right arm;Paresthesia of right leg;Myalgia;Ar Performed By: #### T SH3, CBC, CMP, LIPID #### [facility] [address] MCH [Entitic mass] by Automa justin countOrdered By: La Gentile on 02-02-2023 MCH (RBC) [Entitic mass] 28.0 pg Normal 24.7-34.3 [facility] Comment on above: Order Comment: Reaso n for Exam Paresthesia of right arm;Paresthesia of right leg;Myalgia;Ar Performed By: #### T SH3, CBC, CMP, LIPID #### [facility] [address] [place] [address] MCHC Auto (RBC) [Mass/Vol]Or dered By: La Gentile on 02-02-2023 MCHC (RBC) [Mass/Vol] 33.4 g/dL 32.0-35.0 [facility] MCV [Entitic volume] by Auto mated countOrdered By: La Gentile on 02-02-2023 MCV (RBC) [Entitic vol] 83.7 fL Normal 80-100 [facility] Comment on above: Order Comment: Reaso n for Exam Paresthesia of right arm;Paresthesia of right leg;Myalgia;Ar Performed By: #### T SH3, CBC, CMP, LIPID #### [facility] [address] Neutrophils [#/volume] in Bl ood by Automated countOrdered By: La Gentile on 02-02-2023 Neutrophils (Bld) [#/Vol] 3.9 10*3/uL Normal 1.8-7.7 [facility] Comment on above: Order Comment: Reaso n for Exam Paresthesia of right arm;Paresthesia of right leg;Myalgia;Ar Performed By: #### T SH3, CBC, CMP, LIPID #### [facility] [address] No Panel InformationOrdered By: La Gentile on 02-02-2023 Estimated GFR (CKD-EPI) > 60.0 mL/Min [facility] Creatinine Clearance (Chem N/A [facility] Nucleated erythrocytes [Pres ence] in Blood by Automated countOrdered By: La Gentile on 02-02-2023 Nucleated RBC Auto Ql (Bld) 0.1 /100{WBC} 0-0.5 [facility] Platelet mean volume [Entiti c volume] in Blood by Automated countOrdered By: La Gentile on 02-02-2023 Platelet mean volume (Bld) [Entitic vol] 9.6 fL Normal 6.3-10.7 [facility] Comment on above: Order Comment: Reaso n for Exam Paresthesia of right arm;Paresthesia of right leg;Myalgia;Ar Performed By: #### T SH3, CBC, CMP, LIPID #### [facility] [address] Platelets [#/volume] in Bloo d by Automated countOrdered By: La Gentile on 02-02-2023 Platelets (Bld) [#/Vol] 215 10*3/uL Normal 150-450 [facility] Comment on above: Order Comment: Reaso n for Exam Paresthesia of right arm;Paresthesia of right leg;Myalgia;Ar Performed By: #### T SH3, CBC, CMP, LIPID #### [facility] [address] [place] [address] Potassium [Moles/volume] in Serum or PlasmaOrdered By: La Gentile on 02-02-2023 Potassium [Moles/Vol] 4.3 mmol/L Normal 3.5-5.1 [facility] Comment on above: Order Comment: Reaso n for Exam Paresthesia of right arm;Paresthesia of right leg;Myalgia;Ar Performed By: #### T SH3, CBC, CMP, LIPID #### [facility] [address] Protein [Mass/volume] in Ser um or PlasmaOrdered By: La Gentile on 02-02-2023 Protein [Mass/Vol] 6.8 g/dL Normal 6.4-8.9 [facility] Comment on above: Order Comment: Reaso n for Exam Paresthesia of right arm;Paresthesia of right leg;Myalgia;Ar Performed By: #### T SH3, CBC, CMP, LIPID #### [facility] [address] Serum globulin measurement b y calculation (mass/volume)Ordered By: La Gentile on 02-02-2023 Globulin (S) [Mass/Vol] 2.4 g/dL Normal [facility] Comment on above: Order Comment: Reaso n for Exam Paresthesia of right arm;Paresthesia of right leg;Myalgia;Ar Performed By: #### T SH3, CBC, CMP, LIPID #### [facility] [address] [place] [address] Serum or plasma albumin/glob ulin mass ratioOrdered By: La Gentile on 02-02-2023 Albumin/Globulin [Mass ratio] 1.8 {ratio} Normal [facility] Comment on above: Order Comment: Reaso n for Exam Paresthesia of right arm;Paresthesia of right leg;Myalgia;Ar Performed By: #### T SH3, CBC, CMP, LIPID #### [facility] [address] Serum or plasma anion gap de terminationOrdered By: La Gentile on 02-02-2023 Anion gap [Moles/Vol] 9.2 mmol/L Normal 6.0-15.0 [facility] Comment on above: Order Comment: Reaso n for Exam Paresthesia of right arm;Paresthesia of right leg;Myalgia;Ar Performed By: #### T SH3, CBC, CMP, LIPID #### [facility] [address] Serum or plasma high density lipoprotein (HDL) cholesterol measurementOrdered By: La Gentile on 02-02-2023 Cholesterol in HDL [Mass/Vol] 47 mg/dL Normal 23-92 [facility] Comment on above: HDL CHOL ATP-III CLA SSIFICATION Cardiovascular RiskHDL > or equal to 60 mg/dL LOWHDL < 40 mg/dL HIGH Order Comment: Reaso n for Exam Paresthesia of right arm;Paresthesia of right leg;Myalgia;Ar Result Comment: HDL CHOL ATP-III CLASSIFICATION Cardiovascular Risk HDL > or equal to 60 mg/dL LOW HDL < 40 mg/dL HIGH Performed By: #### T SH3, CBC, CMP, LIPID #### [address] Serum or plasma total choles terol/high density lipoprotein (HDL) cholesterol mass ratOrdered By: La Gentile on 02-02-2023 Cholesterol.total/Ivette sterol in HDL [Mass ratio] 4.4 {ratio} Normal <5.0 [facility] Comment on above: Order Comment: Reaso n for Exam Paresthesia of right arm;Paresthesia of right leg;Myalgia;Ar Performed By: #### T SH3, CBC, CMP, LIPID #### [facility] [address] [place] [address] Sodium [Moles/volume] in Ser um or PlasmaOrdered By: La Gentile on 02-02-2023 Sodium [Moles/Vol] 137 mmol/L Normal 136-145 [facility] Comment on above: Order Comment: Reaso n for Exam Paresthesia of right arm;Paresthesia of right leg;Myalgia;Ar Performed By: #### T SH3, CBC, CMP, LIPID #### [address] Thyrotropin [Units/volume] i n Serum or PlasmaOrdered By: La Gentile on 02-02-2023 TSH Qn 2.98 m[IU]/L Normal 0.45-5.33 [facility] Comment on above: Order Comment: Reaso n for Exam Paresthesia of right arm;Paresthesia of right leg;Myalgia;Ar Result Comment: PERF ORMED BY: [place] [address] PATHOLOGIST MANAGER MERCHANDISE MARLENY VILLEGAS M.D. Performed By: #### T SH3, CBC, CMP, LIPID #### [facility] [address] [place] [address] Triglyceride [Mass/volume] i n Serum or PlasmaOrdered By: La Gentile on 02-02-2023 Triglyceride [Mass/Vol] 236 mg/dL 0-149 [facility] Comment on above: TRIG ATP III CLASSIF ICATIONTRIG less than 150 mg/dL NormalTRIG 150-199 mg/dL Borderline highTRIG 200-500 mg/dL High TRIG greater than 500 mg/dL Very highStandard traceable to the Center for Disease Conrtrol and Prevention (CDC) test method. Urea nitrogen [Mass/volume] in Serum or PlasmaOrdered By: La Gentile on 02-02-2023 Urea nitrogen [Mass/Vol] 13 mg/dL Normal 7-25 [facility] Comment on above: Order Comment: Reaso n for Exam Paresthesia of right arm;Paresthesia of right leg;Myalgia;Ar Performed By: #### T SH3, CBC, CMP, LIPID #### [facility] [address] [place] [address] US carotid doppler BIon US carotid doppler BI [facility] [place] [address] [place] [address] Ultrasound Report Signed Patient: Geovanny Conrad MR#: [id number] 322 : 1980 Acct:[id number] Age/Sex: 42 / F ADM Date: 01/15/23 Loc: CT Room: Type: [facility] CLI Attending Dr: La Gentile DO Ordering Provider: La Gentile DO Date of Service: 01/15/23 US/US carotid doppler BI: Paresthesia of right arm;Paresthesia of right leg;TIA (trans Copies to: La Gentile DO CAROTID DUPLEX INDICATION: Right arm and leg numbness PROCEDURE: Color-flow duplex scanning is used to interrogate the extracranial carotid arterial system, as well as both vertebral arteries. The proximal right internal carotid artery shows a highest peak systolic velocity of 86.7 cm/s with an end-diastolic velocity of 36.8 cm/s . The mid internal carotid artery measures 74.6 cm/s peak systolic with an end-diastolic velocity of 38.4 cm/s . The distal segment measures 79.6 cm/s peak systolic with an end diastolic velocity of 38.4 cm/s . The velocities of the right common carotid artery are 115 cm/s peak systolic and 29 cm/s end- diastolic proximally and 116 cm/s peak systolic and 32.9 cm/s end-diastolic distally. The peak systolic velocity ratio of the internal to the common carotid artery is 0.75 . The right external carotid artery measures 89 cm/s peak systolic. The right vertebral artery is patent at 66.3 cm/s peak systolic and with antegrade flow. The proximal left internal carotid artery shows a highest peak systolic velocity of 85.1 cm/s with an end-diastolic velocity of 37.3 cm/s . The mid internal carotid artery measures 78.9 cm/s peak systolic with an end-diastolic velocity of 31.7 cm/s . The distal segment measures 47.4 cm/s peak systolic with an end diastolic velocity of 19.8 cm/s . The velocities of the left common carotid artery are 142 cm/s peak systolic and 35.5 cm/s end-diastolic proximally and 96.9 cm/s peak systolic and 29.2 cm/s end-diastolic distally. The peak systolic velocity ratio of the internal to the common carotid artery is 0.6 . The left external carotid artery measures 67.3 cm/s peak systolic. The left vertebral artery is patent at 63.4 cm/s peak systolic with antegrade flow. US/US carotid doppler BI IMPRESSION: NO HEMODYNAMICALLY SIGNIFICANT STENOSIS OF EITHER EXTRACRANIAL INTERNAL CAROTID ARTERY. BOTH VERTEBRAL ARTERIES ARE PATENT WITH ANTEGRADE FLOW. Impression dictated by: Barrett Jones M.D.01/16/2023 10:28 AM Dictation Location: [id number] Tech: Chapis Sams Transcribed By: SYED 01/16/23 1028 Dictated By: Barrett Jones MD 01/16/23 1026 Signed By: 01/16/23 1028 Normal [facility] CT head/brain wo conon 01-15 CT head/brain wo con [facility] [place] [address] CT Scan Report Signed Patient: Geovanny Conrad MR#: [id number] : 1980 Acct:[id number] Age/Sex: 42 / F ADM Date: 01/15/23 Loc: CT Room: Type: [facility] Attending Dr: La Gentile DO Copies to: La Gentile DO Ordering Provider: La Gentile DO Date of Service: 01/15/23 CT/CT head/brain wo con: TIA (transient ischemic attack);Paresthesia of skin CT BRAIN WITHOUT CONTRAST: CLINICAL HISTORY: Right arm and leg numbness and tingling intermittently for the past 6 weeks. COMPARISON: None TECHNIQUE: Contiguous axial unenhanced images were obtained through the brain. This CT exam was performed using one or more following dose reduction techniques: Automated exposure control, adjustment of the mA and/or kV according to patient size, or use of iterative reconstruction technique. FINDINGS: The ventricles are normal in size and position. There are no areas of abnormal attenuation. There is no hemorrhage, mass effect or extra-axial collections. The imaged paranasal sinuses and mastoid air cells are clear. CT/CT head/brain wo con IMPRESSION: NO ACUTE INTRACRANIAL ABNORMALITY. Impression dictated by: Mounika Galvez M.D.01/15/2023 4:28 PM Dictation Location: [place] [address] Transcribed By: SYED 01/15/23 1628 Dictated By: Mounika Galvez MD 01/15/23 1624 Signed By: 01/15/23 162 Normal [facility] PAP ACOG PANEL 2: 30 to 65on 08-06-2022 . . Normal [facility] Comment on above: Result Comment: Perf ormed at: WB Performed By: #### [id number] #### [facility] [address] [place] [address] Dr. Sohail Carrera Age Gdln ACOG Testing 30-65 Normal [facility] Comment on above: Performed By: #### [id number] #### [facility] [address] [place] [address] Dr. Sohail Carrera DIAGNOSIS: Comment Normal [facility] Comment on above: Result Comment: NEGA TIVE FOR INTRAEPITHELIAL LESION OR MALIGNANCY. Performed at: WB Performed By: #### [id number] #### [facility] [address] [place] [address] Dr. Sohail Carrera HPV Aptima Negative Normal Negative [facility] Comment on above: Result Comment: This nucleic acid amplification test detects fourteen high-risk HPV types (16,18,31,33,35,39,45,51,52,56,58,59,66,68) without differentiation. Performed at: =G Performed By: #### [id number] #### [facility] [address] [place] [address] Dr. Sohail Carrera HPV Genotype Reflex Comment Normal [facility] Comment on above: Result Comment: Crit eria not met, HPV Genotype not performed. Performed at: WB Performed By: #### [id number] #### [facility] [address] [place] [address] Dr. Sohail Carrera Methodology: Comment Normal [facility] Comment on above: Result Comment: This liquid based ThinPrep(R) pap test was screened with the use of an image guided system. Performed at: WB Performed By: #### [id number] #### [facility] [address] [place] [address] Dr. Sohail Carrera Note: Comment Normal [facility] Comment on above: Result Comment: The Pap smear is a screening test designed to aid in the detection of premalignant and malignant conditions of the uterine cervix. It is not a diagnostic procedure and should not be used as the sole means of detecting cervical cancer. Both false-positive and false-negative reports do occur. . Performed at: WB Performed By: #### [id number] #### [facility] [address] [place] [address] Dr. Sohail Carrera Performed by: Comment Normal [facility] Comment on above: Result Comment: Meena Suggs, Char Belt Operator (ASCP) Performed at: WB Performed By: #### [id number] #### [facility] [address] [place] [address] [address] Sohail Carrera Specimen adequacy: Comment Normal [facility] Comment on above: Result Comment: Sati sfactory for evaluation. Endocervical and/or squamous metaplastic cells (endocervical component) are present. Performed at: WB Performed By: #### [id number] #### [facility] [address] [place], [place] [address] Dr. Sohail Carrera MG MAMM SCREEN 3D UYEN CADon 07-31-2022 MG MAMM SCREEN 3D UYEN CAD Patient: GEOVANNY CONRAD Exam Date: 07/31/2022 : 1980 Gender:F Ordering : DR SKYLAR OBRIEN . Admission #: [id number] Family : Order #: [id number] CLICK HERE TO VIEW EXAM RADIOLOGY REPORT PROCEDURE: MAMMOGRAM SCREENING 3D BILATERAL CAD COMPARISON: None. INDICATIONS: Screening mammography Calculator Name NCI Breast Cancer Risk Assessment Tool 5 Year Breast Cancer Risk 0.80% Lifetime Breast Cancer Risk 13.60% Personal Breast Cancer No Personal Ovarian Cancer No Treatments None Family Cancers Grandmother-maternal with uterine cancer at age 55. LOCATION: [facility] BREAST COMPOSITION: Heterogeneously dense,which may obscure small masses. FINDINGS: DIAGNOSTIC CATEGORY 1--NEGATIVE. RIGHT BREAST: No significant suspicious finding. LEFT BREAST: No significant suspicious finding. RECOMMENDATIONS: ROUTINE MAMMOGRAM AND CLINICAL EVALUATION IN 12 MONTHS. PLEASE NOTE: A NORMAL MAMMOGRAM DOES NOT EXCLUDE THE POSSIBILITY OF BREAST CANCER. A CLINICALLY SUSPICIOUS PALPABLE LUMP SHOULD BE BIOPSIED. Dictated by: Roberto Alvarez M.D. on 07/31/2022 at 11:51 Approved by: Roberto Alvarez M.D. on 07/31/2022 at 11:52 Normal [facility] CBC AUTO DIFFon 06-29-2022 BASO # 0.0 103/ul Normal 0.0-0.1 [facility] Comment on above: Performed By: #### C BC #### [facility] [address] [place] [address] Dr. Sohail Carrera Basophils/100 WBC (Bld) 0.5 % Normal 0.2-2.0 [facility] Comment on above: Performed By: #### C BC #### [facility] [address] [place] [address] Dr. Sohail Carrera EO # 0.1 103/ul Normal 0.0-0.7 [facility] Comment on above: Performed By: #### C BC #### [facility] [address] [place] [address] Dr. Sohail Carrera Eosinophils/100 WBC (Bld) 1.0 % Normal 0.9-7.0 [facility] Comment on above: Performed By: #### C BC #### [facility] [address] [place] [address] Dr. Sohail Carrera Erythrocyte distribution width (RBC) [Ratio] 12.6 % Normal 11.0-15.0 [facility] Comment on above: Performed By: #### C BC #### [facility] [address] [place] [address] Dr. Sohail Carrera Hematocrit (Bld) [Volume fraction] 39.0 % Normal 36.0-48.0 [facility] Comment on above: Performed By: #### C BC #### [facility] [address] [place] [address] Dr. Sohail Carrera Hemoglobin (Bld) [Mass/Vol] 13.4 g/dL Normal 12.0-16.0 [facility] Comment on above: Performed By: #### C BC #### [facility] [address] [place] [address] Dr. Sohail Carrera IG # 0.01 10e3/ul Normal 0.00-0.03 [facility] Comment on above: Performed By: #### C BC #### [facility] [address] [place] [address] Dr. Sohail Carrera IG % 0.2 % Normal 0.0-0.5 [facility] Comment on above: Performed By: #### C BC #### [facility] [address] [place] [address] Dr. Sohail Carrera LYMPH # 1.7 103/ul Normal 1.2-3.8 [facility] Comment on above: Performed By: #### C BC #### [facility] [address] [place] [address] Dr. Sohail Carrera Lymphocytes/100 WBC (Bld) 28.4 % Normal 20.5-60.0 [facility] Comment on above: Performed By: #### C BC #### [facility] [address] [place] [address] Dr. Sohail Carrera MANUAL DIFF REQ NO Normal [facility] Comment on above: Performed By: #### C BC #### [facility] [address] [place] [address] Dr. Sohail Carrera MCH (RBC) [Entitic mass] 28.7 pg Normal 26.7-34.0 [facility] Comment on above: Performed By: #### C BC #### [facility] [address] [place] [address] Dr. Sohail Carrera MCHC (RBC) [Mass/Vol] 34.4 g/dL Normal 29.9-35.2 [facility] Comment on above: Performed By: #### C BC #### [facility] [address] [place] [address] Dr. Sohail Carrera MCV (RBC) [Entitic vol] 83.5 fL Normal 81.0-99.0 [facility] Comment on above: Performed By: #### C BC #### [facility] [address] [place] [address] Dr. Sohail Carrera MONO # 0.4 103/ul Normal 0.3-0.8 [facility] Comment on above: Performed By: #### C BC #### [facility] [address] [place] [address] Dr. Sohail Carrera Monocytes/100 WBC (Bld) 6.5 % Normal 1.7-12.0 [facility] Comment on above: Performed By: #### C BC #### [facility] [address] [place] [address] Dr. Sohail Carrera NEUT # 3.7 103/ul Normal 1.4-6.5 [facility] Comment on above: Performed By: #### C BC #### [facility] [address] [place] [address] Dr. Sohail Carrera Neutrophils/100 WBC (Bld) 63.4 % Normal 43.0-75.0 [facility] Comment on above: Performed By: #### C BC #### [facility] [address] [place] [address] Dr. Sohail Carrera Platelet mean volume (Bld) [Entitic vol] 11.0 fL Normal 9.5-13.5 [facility] Comment on above: Performed By: #### C BC #### [facility] [address] [place] [address] Dr. Sohail Carrera PLT 252 103/ul Normal 150-450 [facility] Comment on above: Performed By: #### C BC #### [facility] [address] [place] [address] Dr. Sohail Carrera RBC 4.67 106/ul Normal 4.20-5.40 [facility] Comment on above: Performed By: #### C BC #### [facility] [address] [place] [address] Dr. Sohail Carrera WBC 5.9 103/ul Normal 4.0-11.0 [facility] Comment on above: Performed By: #### C BC #### [facility] [address] [place] [address] Dr. Sohail Carrera ER URINE PROFILEon 3 Bilirubin Ql (U) Negative Normal NEGATIVE [facility] Comment on above: Performed By: #### P REGU, ERUR #### [facility] [address] [place] [address] Dr. Sohail Carrera Clarity (U) CLEAR Normal CLEAR [facility] Comment on above: Performed By: #### P REGU, ERUR #### [facility] [address] [place] [address] Dr. Sohail Carrera Color (U) LT. YELLOW Normal YELLOW [facility] Comment on above: Performed By: #### P REGU, ERUR #### [facility] [address] [place] [address] Dr. Sohail PATEL A micrscopic examination will be performed if indicated. Normal [facility] Comment on above: Performed By: #### P REGU, ERUR #### [facility] [address] [place] [address] Dr. Sohail Carrera Glucose Ql (U) Negative Normal NEGATIVE [facility] Comment on above: Performed By: #### P REGU, ERUR #### [facility] [address] [place] [address] Dr. Sohail Carrera Hemoglobin Ql (U) Negative Normal NEGATIVE [facility] Comment on above: Performed By: #### P REGU, ERUR #### [facility] [address] [place] [address] Dr. Sohail Carrera Ketones Ql (U) Negative Normal NEGATIVE [facility] Comment on above: Performed By: #### P REGU, ERUR #### [facility] [address] [place] [address] Dr. Sohail Carrera LEUKOCYTES Negative Normal NEGATIVE [facility] Comment on above: Performed By: #### P REGU, ERUR #### [facility] [address] [place] [address] Dr. Sohail Carrera Nitrite Ql (U) Negative Normal NEGATIVE [facility] Comment on above: Performed By: #### P REGU, ERUR #### [facility] [address] [place] [address] Dr. Sohail Carrera pH (U) 6.0 [pH] Normal 5-9 [facility] Comment on above: Performed By: #### P REGU, ERUR #### [facility] [address] [place] [address] Dr. Sohail Carrera SPEC GRAVITY <=1.005 Abnormal 1.005-<=1.02 5 [facility] Comment on above: Performed By: #### P REGU, ERUR #### [facility] [address] [place] [address] Dr. Sohail Carrera UA PROTEIN Negative Normal NEGATIVE/ TRACE [facility] Comment on above: Performed By: #### P REGU, ERUR #### [facility] [address] [place] [address] Dr. Sohail Carrera UR MICRO IND NOT INDICATED Normal [facility] Comment on above: Performed By: #### P REGU, ERUR #### [facility] [address] [place] [address] Dr. Sohail Carrera Urobilinogen Qn (U) 0.2 {Rubi'U}/dL Normal 0.2 - 1. 0 [facility] Comment on above: Performed By: #### P REGU, ERUR #### [facility] [address] [place] [address] Dr. Sohail Carrera LIPASEon 06-29-2022 Lipase [Catalytic activity/Vol] 122.0 U/L Normal 73.0-393.0 [facility] Comment on above: Performed By: #### L IPA, CMP #### [facility] [address] [place] [address] Dr. Sohail Carrera URon 06-29-2022 , QUAL Negative Normal NEGATIVE [facility] Comment on above: Performed By: #### P REGU, ERUR #### [facility] [address] [place] [address] Dr. Sohail Carrera PROF 14(COMP METB)on 023 Albumin [Mass/Vol] 4.0 g/dL Normal 3.4-5.0 [facility] Comment on above: Performed By: #### L IPA, CMP #### [facility] [address] [place] [address] Dr. Sohail Carrera Albumin/Globulin [Mass ratio] 1.1 {ratio} Normal [facility] Comment on above: Performed By: #### L IPA, CMP #### [facility] [address] [place] [address] Dr. Sohail Carrera ALP [Catalytic activity/Vol] 69 U/L Normal 46-116 [facility] Comment on above: Performed By: #### L IPA, CMP #### [facility] [address] [address] [address] Sohail Carrera ALT [Catalytic activity/Vol] 22 U/L Normal 14-59 [facility] Comment on above: Performed By: #### L IPA, CMP #### [facility] [address] [address] [address] Sohail Carrera Anion gap [Moles/Vol] 11.4 mmol/L Normal [facility] Comment on above: Performed By: #### L IPA, CMP #### [facility] [address] [address] [address] Sohail Carrera AST [Catalytic activity/Vol] 15 U/L Normal 15-37 [facility] Comment on above: Performed By: #### L IPA, CMP #### [facility] [address] [place] [address] Dr. Sohail Carrera Bilirubin [Mass/Vol] 0.3 mg/dL Normal 0.2-1.0 [facility] Comment on above: Performed By: #### L IPA, CMP #### [facility] [address] [place] [address] Dr. Sohail Carrera Calcium [Mass/Vol] 9.4 mg/dL Normal 8.5-10.1 [facility] Comment on above: Performed By: #### L IPA, CMP #### [facility] [address] [address] [address] Sohail Carrera Chloride [Moles/Vol] 105 mmol/L Normal 98-107 [facility] Comment on above: Performed By: #### L IPA, CMP #### [facility] [address] [place] [address] Dr. Sohail Carrera CO2 [Moles/Vol] 26.0 mmol/L Normal 21.0-32.0 [facility] Comment on above: Performed By: #### L IPA, CMP #### [facility] [address] [place] [address] Dr. Sohail Carrera Creatinine [Mass/Vol] 0.84 mg/dL Normal 0.55-1.02 [facility] Comment on above: Performed By: #### L IPA, CMP #### [facility] [address] [address] [address] Sohail Carrera EGFR-AF DJIBOUTIAN >60 Normal >=60 [facility] Comment on above: Performed By: #### L IPA, CMP #### [facility] [address] [address] [address] Sohail Carrera EGFR-NON AF DJIBOUTIAN >60 Normal >=60 [facility] Comment on above: Performed By: #### L IPA, CMP #### [facility] [address] [address] [address] Sohail Carrera Globulin (S) [Mass/Vol] 3.6 g/dL Normal T [facility] Comment on above: Performed By: #### L IPA, CMP #### [facility] [address] [place] [address] Dr. Sohail Carrera Glucose [Mass/Vol] 105 mg/dL Normal 74-106 [facility] Comment on above: Performed By: #### L IPA, CMP #### [facility] [address] [address] [address] Sohail Carrera Potassium [Moles/Vol] 4.4 mmol/L Normal 3.5-5.1 [facility] Comment on above: Performed By: #### L IPA, CMP #### [facility] [address] [place] [address] Dr. Sohail Carrera Protein [Mass/Vol] 7.6 g/dL Normal 6.4-8.2 [facility] Comment on above: Performed By: #### L IPA, CMP #### [facility] [address] [place] [address] Dr. Sohail Carrera Sodium [Moles/Vol] 138 mmol/L Normal 136-145 [facility] Comment on above: Performed By: #### L IPA, CMP #### [facility] [address] [address] [address] Sohail Carrera Urea nitrogen [Mass/Vol] 10.0 mg/dL Normal 7.0-18.0 [facility] Comment on above: Performed By: #### L IPA, CMP #### [facility] [address] [address] [address] Sohail Carrera Urea nitrogen/Creatinine [Mass ratio] 11.9 mg/mg Normal [facility] Comment on above: Performed By: #### L IPA, CMP #### [facility] [address] [address] [address] Sohail Carrera XR LSPINE 2_3 VIEWSon 2022 XR LSPINE 2_3 VIEWS EXAM: XR LSPINE 2_3 VIEWS HISTORY: Left lower back pain for 6 weeks. COMPARISON: None. TECHNIQUE: AP and lateral views of the lumbar spine performed. FINDINGS: The bony alignment and mineralization are normal. The vertebral body heights are normal. There is no fracture. The disc spaces at facet joints are normal. There are no significant degenerative changes. The pedicles are intact. The bilateral sacroiliac joints are unremarkable. There is a calcified granuloma within the left upper abdomen. There is an IUD within the pelvis. IMPRESSION: The lumbar spine is unremarkable. Electronically authenticated by: SRAVANTHI CARRERA Date: 2022-06-29 11:44 Normal [facility] Albumin [Mass/volume] in Ser um or PlasmaOrdered By: La Gentile on 02-16-2022 Albumin [Mass/Vol] 3.9 g/dL 3.2-5.5 [facility] Basophils Auto (Bld) [#/Vol] Ordered By: La Gentile on 02-16-2022 Basophils (Bld) [#/Vol] 0.0 10*3/uL 0.0-0.2 [facility] Basophils/100 WBC Auto (Bld) Ordered By: La Gentile on 02-16-2022 Basophils/100 WBC (Bld) 0.5 % . [facility] Blood hemoglobin measurement (mass/volume)Ordered By: La Gentile on 02-16-2022 Hemoglobin (Bld) [Mass/Vol] 13.1 g/dL 11.8-15.4 [facility] Blood leukocytes automated c ount (number/volume)Ordered By: La Gentile on 02-16-2022 WBC (Bld) [#/Vol] 6.1 10*3/uL 4.5-11.0 [facility] Cholesterol [Mass/volume] in Serum or PlasmaOrdered By: La Gentile on 02-16-2022 Cholesterol [Mass/Vol] 212 mg/dL 140-200 [facility] Comment on above: Chol less than 200 m g/dl low riskChol 201-239 mg/dl borderline riskChol 240 mg/dl and greater high risk Cholesterol in LDL Calc [Mas s/Vol]Ordered By: La Gentile on 02-16-2022 Cholesterol in LDL [Mass/Vol] 126 mg/dL 0-100 [facility] Comment on above: LDL ATP III CLASSIFI CATIONLDL less than 100 mg/dL OptimalLDL 100-129 mg/dL Near or above optimalLDL 130-159 mg/dL Borderline highLDL 160-189 mg/dL HighLDL greater than 189 mg/dL Very high Cholesterol in VLDL Calc [Ma ss/Vol]Ordered By: La Gentile on 02-16-2022 Cholesterol in VLDL [Mass/Vol] 45 mg/dL [facility] Creatinine and Glomerular fi ltration rate.predicted panel (S/P/Bld)Ordered By: La Gentile on 02-16-2022 Creatinine [Mass/Vol] 0.90 mg/dL 0.44-1.03 [facility] Eosinophils Auto (Bld) [#/Vo l]Ordered By: La Gentile on 02-16-2022 Eosinophils (Bld) [#/Vol] 0.1 10*3/uL 0.0-0.45 [facility] Eosinophils/100 WBC Auto (Bl d)Ordered By: La Gentile on 02-16-2022 Eosinophils/100 WBC (Bld) 1.1 % . [facility] Erythrocyte distribution wid th Auto (RBC) [Ratio]Ordered By: La Gentile on 02-16-2022 Erythrocyte distribution width (RBC) [Ratio] 13.2 % 11.9-15.3 [facility] Estimated glomerular filtrat ion rate (GFR) non- AmericanOrdered By: La Gentile on 02-16-2022 GFR/1.73 sq M.predicted among non-blacks MDRD (S/P/Bld) [Vol rate/Area] > 60 mL/Min [facility] Globulin Calc (S) [Mass/Vol] Ordered By: La Gentile on 02-16-2022 Globulin (S) [Mass/Vol] 3.3 g/dL [facility] Hematocrit Auto (Bld) [Volum e fraction]Ordered By: La Gentile on 02-16-2022 Hematocrit (Bld) [Volume fraction] 39.8 % 34.0-46.4 [facility] - Hematology and Cell countsOrdered By: La Gentile on 02-16-2022 Nucleated RBC/100 WBC (Bld) [Ratio] 0.0 % 0-0.5 [facility] Lymphocytes Auto (Bld) [#/Vo l]Ordered By: La Gentile on 02-16-2022 Lymphocytes (Bld) [#/Vol] 1.4 10*3/uL 1.00-4.8 [facility] Lymphocytes/100 WBC Auto (Bl d)Ordered By: La Gentile on 02-16-2022 Lymphocytes/100 WBC (Bld) 23.4 % . [facility] MCH Auto (RBC) [Entitic mass ]Ordered By: aL Gentile on 02-16-2022 MCH (RBC) [Entitic mass] 28.1 pg 24.7-34.3 [facility] MCHC Auto (RBC) [Mass/Vol]Or dered By: La Gentile on 02-16-2022 MCHC (RBC) [Mass/Vol] 33.0 g/dL 32.0-35.0 [facility] MCV Auto (RBC) [Entitic vol] Ordered By: La Gentile on 02-16-2022 MCV (RBC) [Entitic vol] 85.1 fL 80-100 [facility] Monocytes Auto (Bld) [#/Vol] Ordered By: La Gentile on 02-16-2022 Monocytes (Bld) [#/Vol] 0.3 10*3/uL 0.0-0.8 [facility] Monocytes/100 WBC Auto (Bld) Ordered By: La Gentile on 02-16-2022 Monocytes/100 WBC (Bld) 5.2 % . [facility] Neutrophils Auto (Bld) [#/Vo l]Ordered By: La Gentile on 02-16-2022 Neutrophils (Bld) [#/Vol] 4.3 10*3/uL 1.8-7.7 [facility] Neutrophils/100 WBC Auto (Bl d)Ordered By: La Gentile on 02-16-2022 Neutrophils/100 WBC (Bld) 69.8 % . [facility] No Panel InformationOrdered By: La Gentile on 02-16-2022 Estimated GFR () > 60 mL/Min [facility] Comment on above: GFR estimated refere nce range: According to KDOQI guidelines, <60 ml/min/1.73m2 is sufficient to diagnose a patient with chronic kidney disease. Pharmacy Creatinine Clearance (Chem N/A [facility] Platelet mean volume Auto (B ld) [Entitic vol]Ordered By: La Gentile on 02-16-2022 Platelet mean volume (Bld) [Entitic vol] 10.3 fL 6.3-10.7 [facility] Platelets Auto (Bld) [#/Vol] Ordered By: La Gentile on 02-16-2022 Platelets (Bld) [#/Vol] 254 10*3/uL 150-450 [facility] Protein [Mass/volume] in Ser um or PlasmaOrdered By: La Gentile on 02-16-2022 Protein [Mass/Vol] 7.2 g/dL 6.1-7.9 [facility] RBC Auto (Bld) [#/Vol]Ordere d By: La Gentile on 02-16-2022 RBC (Bld) [#/Vol] 4.67 10*6/uL 3.60-5.00 [facility] Serum or plasma alanine sesay otransferase measurement without P-5'-P (enzymatic activiOrdered By: La Gentile on 02-16-2022 ALT No additional P-5'-P [Catalytic activity/Vol] 20 U/L 10-60 [facility] Serum or plasma albumin/glob ulin mass ratioOrdered By: La Gentile on 02-16-2022 Albumin/Globulin [Mass ratio] 1.2 {ratio} [facility] Serum or plasma alkaline anton sphatase measurement (enzymatic activity/volume)Ordered By: La Gentile on 02-16-2022 ALP [Catalytic activity/Vol] 59 U/L 32-92 [facility] Serum or plasma anion gap de terminationOrdered By: La Gentile on 02-16-2022 Anion gap [Moles/Vol] 11.6 mmol/L 6.0-15.0 [facility] Serum or plasma aspartate am inotransferase measurement (enzymatic activity/volume)Ordered By: La Gentile on 02-16-2022 AST [Catalytic activity/Vol] 20 U/L 10-42 [facility] Serum or plasma calcium alfonso urement (mass/volume)Ordered By: La Gentile on 02-16-2022 Calcium [Mass/Vol] 9.2 mg/dL 8.2-10.2 [facility] Serum or plasma chloride berna surement (moles/volume)Ordered By: La Gentile on 02-16-2022 Chloride [Moles/Vol] 103 mmol/L 95-114 [facility] Serum or plasma glucose alfonso urement (mass/volume)Ordered By: La Gentile on 02-16-2022 Glucose [Mass/Vol] 97 mg/dL 70-100 [facility] Comment on above: ADA recommended refe rence rangeRandom Glucose Reference Range is dependent on time and content of last meal. Glucose of more than 200 mg/dL in a nonstressed, ambulatory subject supports the diagnosis of Diabetes Mellitus. Serum or plasma high density lipoprotein (HDL) cholesterol measurementOrdered By: La Gentile on 02-16-2022 Cholesterol in HDL [Mass/Vol] 41 mg/dL 35-85 [facility] Comment on above: HDL CHOL ATP-III CLA SSIFICATION Cardiovascular RiskHDL > or equal to 60 mg/dL LOWHDL < 40 mg/dL HIGH Serum or plasma potassium me asurement (moles/volume)Ordered By: La Gentile on 02-16-2022 Potassium [Moles/Vol] 3.8 mmol/L 3.5-5.1 [facility] Serum or plasma sodium measu rement (moles/volume)Ordered By: La Gentile on 02-16-2022 Sodium [Moles/Vol] 136 mmol/L 136-146 [facility] Serum or plasma total biliru bin measurement (mass/volume)Ordered By: La Gentile on 02-16-2022 Bilirubin [Mass/Vol] 0.9 mg/dL 0.3-1.2 [facility] Serum or plasma total carbon dioxide measurement (moles/volume)Ordered By: La Gentile on 02-16-2022 CO2 [Moles/Vol] 25.2 mmol/L 22.0-30.0 [facility] Serum or plasma total choles terol/high density lipoprotein (HDL) cholesterol mass ratOrdered By: La Gentile on 02-16-2022 Cholesterol.total/Ivette sterol in HDL [Mass ratio] 5.2 {ratio} <5.0 [facility] Serum or plasma urea nitroge n measurement (mass/volume)Ordered By: La Gentile on 02-16-2022 Urea nitrogen [Mass/Vol] 12 mg/dL 9-23 [facility] TSH DL <= 0.005 mIU/L QnOrde red By: La Gentile on 02-16-2022 TSH Qn 3.12 m[IU]/L 0.45-5.33 [facility] Triglyceride [Mass/volume] i n Serum or PlasmaOrdered By: La Gentile on 02-16-2022 Triglyceride [Mass/Vol] 227 mg/dL 35-149 [facility] Comment on above: TRIG ATP III CLASSIF ICATIONTRIG less than 150 mg/dL NormalTRIG 150-199 mg/dL Borderline highTRIG 200-500 mg/dL High TRIG greater than 500 mg/dL Very highStandard traceable to the Center for Disease Conrtrol and Prevention (CDC) test method. COVID + FLU Quick Testingon 09-18-2021 SARS-CoV-2 (COVID-19) RNA JING+probe Ql (Unsp spec) Negative [facility] Other COVID + FLU Quick Testing Negative [facility] Other COVID + FLU Quick Testingon 05-19-2021 SARS-CoV-2 (COVID-19) RNA JING+probe Ql (Unsp spec) Negative [facility] Other COVID + FLU Quick Testing Negative [facility] Other Complete Blood Count Auto Di ffon 05-19-2021 Basophils (Bld) [#/Vol] 0.1 10*3/uL 0.0-0.2 [facility] Other Basophils/100 WBC (Bld) 1.0 % . N [facility] Other Eosinophils (Bld) [#/Vol] 0.0 10*3/uL 0.0-0.45 [facility] Other Eosinophils/100 WBC (Bld) 0.5 % . [facility] Other Erythrocyte distribution width (RBC) [Ratio] 13.3 % 11.9-15.3 [facility] Other Hematocrit (Bld) [Volume fraction] 41.2 % 34.0-46.4 [facility] Other Hemoglobin (Bld) [Mass/Vol] 13.9 g/dL 11.8-15.4 [facility] Other Lymphocytes (Bld) [#/Vol] 2.7 10*3/uL 1.00-4.8 [employer] Other Lymphocytes/100 WBC (Bld) 30.5 % . [facility] Other MCH (RBC) [Entitic mass] 28.6 pg 24.7-34.3 [facility] Other MCH (RBC) [Entitic mass] 33.8 pg 32.0-35.0 [facility] Other MCV (RBC) [Entitic vol] 84.5 fL 80-100 N [facility]IC Other Monocytes (Bld) [#/Vol] 0.7 10*3/uL 0.0-0.8 [facility] Other Monocytes/100 WBC (Bld) 7.5 % . N [employer] Other Neutrophils (Bld) [#/Vol] 5.3 10*3/uL 1.8-7.7 [facility] Other Neutrophils/100 WBC (Bld) 60.5 % . [facility] Other Platelet mean volume (Bld) [Entitic vol] 9.4 fL 6.3-10.7 [facility] Other Platelets (Bld) [#/Vol] 303 10*3/uL 150-450 [facility] Other RBC (Bld) [#/Vol] 4.87 10*6/uL 3.60-5.00 [facility] Other WBC (Bld) [#/Vol] 8.8 10*3/uL 3.8-11.6 [facility] Other Complete Blood Count Auto Diff 8.8 4.5-11.0 [facility] Other Complete Blood Count Auto Diff 0.1 0-0.5 [facility] Other Comprehensive Metabolic Pane kenya 05-19-2021 Albumin [Mass/Vol] 4.3 g/dL 3.2-5.5 [facility] Other Albumin/Globulin [Mass ratio] 1.3 {ratio} [facility] Other ALP [Catalytic activity/Vol] 51 U/L 32-92 [facility] Other ALT [Catalytic activity/Vol] 17 U/L 10-60 [facility] Other AST [Catalytic activity/Vol] 14 U/L 10-42 [facility] Other Bilirubin [Mass/Vol] 0.9 mg/dL 0.3-1.2 [facility] Other Calcium [Mass/Vol] 9.5 mg/dL 8.2-10.2 [facility] [employer] Other Chloride [Moles/Vol] 102 mmol/L 95-114 [facility] [employer] Other CO2 [Moles/Vol] 27.5 mmol/L 22.0-30.0 [facility] [employer] Other Creatinine [Mass/Vol] 0.84 mg/dL 0.44-1.03 [facility] [employer] Other Glucose [Mass/Vol] 71 mg/dL 70-100 [facility] [employer] Other Potassium [Moles/Vol] 3.8 mmol/L 3.5-5.1 [facility] [employer] Other Protein [Mass/Vol] 7.7 g/dL 6.1-7.9 [facility] [employer] Other Sodium [Moles/Vol] 137 mmol/L 136-146 [facility] [employer] Other Urea nitrogen [Mass/Vol] 10 mg/dL 9-23 [facility] [employer] Other Comprehensive Metabolic Panel > 60 [facility] [employer] Other Comprehensive Metabolic Panel 3.4 [facility] [employer] Other Lipid Panelon 05-19-2021 Cholesterol [Mass/Vol] 306 mg/dL 140-200 [facility] [employer] Other Cholesterol in HDL [Mass/Vol] 53 mg/dL 35-85 [facility] [employer] Other Cholesterol in LDL Elph Qn 219 0-100 [facility] [employer] Other Cholesterol.total/Ivette sterol in HDL [Mass ratio] 5.8 {ratio} <5.0 [facility] [employer] Other Lipid Panel 169 35-149 [facility] [employer] Other Lipid Panel 33 [facility] [employer] Other Thyroid Stimulating Hormoneo n 05-19-2021 TSH Qn 3.06 m[IU]/L 0.45-5.33 [facility] Other XR chest 2V*on 05-19-2021 XR chest 2V* [facility] [employer] Other XR chest 2V* [employer] [facility] [employer] [facility] [employer] Other XR chest 2V* [address] [facility] [employer] Other XR chest 2V* [place] [address] [facility] [employer] Other XR chest 2V* XRay Report [facility] Other XR chest 2V* Signed [facility] Other XR chest 2V* Patient: Geovanny Conrad MR#: [id number] [employer] Other XR chest 2V* 322 [facility] Other XR chest 2V* : 1980 Acct:[id number] [facility] Other XR chest 2V* Age/Sex: 40 / F ADM Date: 05/19/21 [facility] Other XR chest 2V* Loc: Room: Type: [facility] Other XR chest 2V* Attending Dr: La Gentile DO [facility] Other XR chest 2V* Ordering Provider: La Gentile DO [facility] Other XR chest 2V* Date of Service: 05/19/21 [facility] Other XR chest 2V* XR/XR chest 2V*: Cough [facility] Other XR chest 2V* Copies to: La Gentile DO [facility] Other XR chest 2V* XR chest 2V* 05/19/2021 9:58 AM [facility] Other XR chest 2V* SIGNS AND SYMPTOMS: Cough, congestion [facility] Other XR chest 2V* PROTOCOL: Frontal an d lateral radiographs of the chest [facility] Other XR chest 2V* COMPARISON: 01/20/2016 N [facility]IC Other XR chest 2V* FINDINGS: [facility] Other XR chest 2V* The trachea is midline. The heart and mediastinal structures are within normal limits. The lung [facility] Other XR chest 2V* parenchyma is clear. The bony thorax is intact. [facility] Other XR chest 2V* XR/XR chest 2V* [facility] Other XR chest 2V* IMPRESSION: [facility] Other XR chest 2V* No acute cardiopulmonary pathology. [facility] Other XR chest 2V* Impression dictated by: Suman Feliz M.D.05/19/2021 11:20 AM [facility] Other XR chest 2V* Dictation Location: [place] [address] [facility] Other XR chest 2V* Transcribed By: SYED 05/19/21 [facility] [place] [facility] Other XR chest 2V* Dictated By: Suman Feliz II, MD 05/19/21 [facility] Other XR chest 2V* Signed By: [facility] Other XR chest 2V* 05/19/21 [facility] [place] [employer] [facility] [email or web address] Other Vital Signs Date Time Vital Sign Value Performing Clinician Facility 10-21-2023 09:31-0400 Body height 162.56 cm DO La Kuns Work Phone: [facility] 10-21-2023 09:31-0400 Body mass index (BMI) [Ratio] 32.9 kg/m2 DO La Kuns Work Phone: [facility] 10-21-2023 09:31-0400 Body weight 87.08 kg DO La Kuns Work Phone: [facility] 10-21-2023 09:31-0400 Diastolic blood pressure 70 mm[Hg] DO La Kuns Work Phone: [facility] 10-21-2023 09:31-0400 Heart rate 81 /min DO La Kuns Work Phone: [facility] 10-21-2023 09:31-0400 Respiratory rate 18 /min DO La Kuns Work Phone: [facility] 10-21-2023 09:31-0400 SaO2% (BldA) [Mass fraction] 96 % DO La Kuns Work Phone: [facility] 10-21-2023 09:31-0400 Systolic blood pressure 122 mm[Hg] DO La Kuns Work Phone: [facility] 02-04-2023 09:15-0400 Body height 162.56 cm La [employer] Other [employer] [facility] [employer] Other 02-04-2023 09:15-0400 Body mass index (BMI) [Ratio] 32.68 kg/m2 [facility] [employer] Other [facility] Other 02-04-2023 09:15-0400 Body weight 86.37 kg La [employer] Other [facility] Other 02-04-2023 09:15-0400 Diastolic blood pressure 70 mm[Hg] La Kuns Other [facility] Other 02-04-2023 09:15-0400 Respiratory rate 18 /min La Kuns Other [facility] Other 02-04-2023 09:15-0400 SaO2% (BldA) [Mass fraction] 96 % La Kuns Other [facility] Other 02-04-2023 09:15-0400 Systolic blood pressure 112 mm[Hg] La Kuns Other [facility] Other 12-24-2022 12:45-0400 Body height 162.56 cm La Kuns Other [facility] Other 12-24-2022 12:45-0400 Body mass index (BMI) [Ratio] 32.61 kg/m2 La Kuns Other [facility] Other 12-24-2022 12:45-0400 Body weight 86.18 kg La Kuns Other [facility] Other 12-24-2022 12:45-0400 Diastolic blood pressure 64 mm[Hg] La Kuns Other [facility] Other 12-24-2022 12:45-0400 Respiratory rate 18 /min La Kuns Other [facility] Other 12-24-2022 12:45-0400 SaO2% (BldA) [Mass fraction] 99 % La Kuns Other [facility] Other 12-24-2022 12:45-0400 Systolic blood pressure 110 mm[Hg] La Kuns Other [facility] Other 07-31-2022 13:45-0400 Body height 162.56 cm La Kuns Other [facility] Other 07-31-2022 13:45-0400 Body mass index (BMI) [Ratio] 32.95 kg/m2 La Kuns Other [facility] Other 07-31-2022 13:45-0400 Body weight 87.09 kg La Kuns Other [facility] Other 07-31-2022 13:45-0400 Diastolic blood pressure 62 mm[Hg] La Kuns Other [facility] Other 07-31-2022 13:45-0400 Respiratory rate 18 /min La Kuns Other [facility] Other 07-31-2022 13:45-0400 SaO2% (BldA) [Mass fraction] 97 % La Kuns Other [facility] Other 07-31-2022 13:45-0400 Systolic blood pressure 102 mm[Hg] La Kuns Other [facility] Other 07-16-2022 09:40-0500 Body temperature 98.6 [degF] DO La Kuns Work Phone: [facility] 07-16-2022 09:40-0500 Diastolic blood pressure 60 mm[Hg] DO La Kuns Work Phone: [facility] 07-16-2022 09:40-0500 Heart rate 84 /min DO La Kuns Work Phone: [facility] 07-16-2022 09:40-0500 Respiratory rate 18 /min DO La Kuns Work Phone: [facility] 07-16-2022 09:40-0500 SaO2% (BldA) [Mass fraction] 9 % DO La Kuns Work Phone: [facility] 07-16-2022 09:40-0500 Systolic blood pressure 129 mm[Hg] DO La Kuns Work Phone: [facility] 07-16-2022 08:33-0500 Body height 160.02 cm DO La Kuns Work Phone: [facility] 07-16-2022 08:33-0500 Body weight 85.85 kg DO La Kuns Work Phone: [facility] 07-07-2022 12:45-0500 Body height 162.56 cm La [employer] Other [facility] [employer] Other 07-07-2022 12:45-0500 Body mass index (BMI) [Ratio] 32.95 kg/m2 [employer] Other [facility] Other 07-07-2022 12:45-0500 Body weight 87.09 kg [employer] Other [facility] Other 07-07-2022 12:45-0500 Diastolic blood pressure 74 mm[Hg] [employer] Other [facility] Other 07-07-2022 12:45-0500 Respiratory rate 16 /min [employer] Other [facility] Other 07-07-2022 12:45-0500 SaO2% (BldA) [Mass fraction] 96 % La Kuns Other [facility] Other 07-07-2022 12:45-0500 Systolic blood pressure 128 mm[Hg] La Kuns Other [facility] Other 05-29-2021 09:15-0500 Body height 162.56 cm La Kuns Other [facility] Other 05-29-2021 09:15-0500 Body mass index (BMI) [Ratio] 32.68 kg/m2 La Kuns Other [facility] Other 05-29-2021 09:15-0500 Body weight 86.37 kg La Kuns Other [facility] Other 05-29-2021 09:15-0500 Diastolic blood pressure 76 mm[Hg] La Kuns Other [facility] Other 05-29-2021 09:15-0500 Respiratory rate 16 /min La Kuns Other [facility] Other 05-29-2021 09:15-0500 SaO2% (BldA) [Mass fraction] 97 % La Kuns Other [facility] Other 05-29-2021 09:15-0500 Systolic blood pressure 120 mm[Hg] La Kuns Other [facility] Other 05-19-2021 09:30-0500 Body height 162.56 cm La Kuns Other [facility] Other 05-19-2021 09:30-0500 Body mass index (BMI) [Ratio] 30.89 kg/m2 Alkylie Lemoss Other [facility] Other 05-19-2021 09:30-0500 Body weight 81.65 kg La Canelos Other [facility] Other 05-19-2021 09:30-0500 Diastolic blood pressure 80 mm[Hg] La Canelos Other [facility] Other 05-19-2021 09:30-0500 Respiratory rate 17 /min Lakylie Lemoss Other [facility] Other 05-19-2021 09:30-0500 SaO2% (BldA) [Mass fraction] 98 % Lakylie Lemoss Other [facility] Other 05-19-2021 09:30-0500 Systolic blood pressure 122 mm[Hg] La Canelos Other [facility] Other Encounters Encounter Date Encounter Type Care Provider Facility Start: 10-21-2023 End: 10-21-2023 ambulatory DO La Kuns Work Phone: [facility] Work Phone: Start: 10-21-2023 End: 10-21-2023 Patient encounter procedure DO La Kuns Work Phone: [facility] [place] Work Phone: Start: 10-20-2023 End: 10-20-2023 ambulatory DO La Kuns Work Phone: [facility] Work Phone: Start: 10-20-2023 End: 10-20-2023 Patient encounter procedure DO La Kuns Work Phone: [facility] [place] Work Phone: Start: 02-04-2023 End: 02-04-2023 ambulatory La Kuns Other [facility] Other Start: 02-04-2023 Office outpatient vi sit 25 minutes La Kuns [facility] Start: 02-02-2023 End: 02-02-2023 Patient encounter procedure DO La Kuns Work Phone: [facility] [place] Work Phone: Start: 02-02-2023 End: 02-02-2023 ambulatory DO La Kuns Work Phone: [facility] Work Phone: Start: 01-15-2023 End: 01-15-2023 Patient encounter procedure DO La Kuns Work Phone: [facility] [place] Work Phone: Start: 01-15-2023 End: 01-15-2023 ambulatory DO La Kuns Work Phone: [facility] Work Phone: Start: 12-24-2022 End: 12-24-2022 ambulatory La Kuns Other [facility] Other Start: 12-24-2022 Office outpatient vi sit 25 minutes La Kuns [facility] Start: 10-20-2022 End: 10-20-2022 ambulatory DO La Kuns Work Phone: [facility] Work Phone: Start: 10-20-2022 End: 10-20-2022 Discharged Recurring DO La Kuns Work Phone: [facility] [place] Work Phone: Start: 09-24-2022 ambulatory JUANA RAYMUNDO Facili ty:[facility] Start: 07-31-2022 End: 07-31-2022 ambulatory JUANA Horan BREANNE Facility:[facility] Start: 07-31-2022 Office outpatient vi sit 25 minutes Lakylie Gentile [facility] Start: 07-31-2022 End: 08-01-[address] SKYLAR OBRIEN . Facility: Start: 07-30-2022 End: 07-30-[address] SKYLAR OBRIEN . Facility:[facility] Start: 07-17-2022 End: 07-17-2022 ambulatory La Gentile Other [facility] Other Start: 07-17-2022 Telephone encounter La Gentile [facility] Start: 07-16-2022 End: 07-16-2022 Emergency department patient visit DO La Gentile Work Phone: [facility] Work Phone: Start: 07-07-2022 End: 07-07-2022 ambulatory La Gentile Other [facility] Other Start: 07-07-2022 Office outpatient vi sit 25 minutes La Gentile [facility] Start: 06-29-2022 Telephone encounter La Gentile [facility] Start: 06-29-2022 End: 06-29-[address] LA GENTILE [facility] [employer] Other Start: 06-25-2022 End: 06-25-2022 ambulatory La Gentile Other [facility] Other Start: 06-25-2022 Telephone encounter La Gentile [facility] Start: 06-15-2022 End: 06-15-[address] LA GENTILE Facility: Start: 02-26-2022 End: 02-26-2022 ambulatory La Gentile Other [facility] Other Start: 02-26-2022 Telephone encounter La Kuns [facility] Start: 02-18-2022 End: 02-18-2022 ambulatory La Kuns Other [facility] Other Start: 02-18-2022 Telephone encounter La Kuns [facility] Start: 02-17-2022 End: 02-17-2022 ambulatory DO La Kuns Work Phone: [facility] Work Phone: Start: 02-17-2022 End: 02-17-2022 Patient encounter procedure DO La Kuns Work Phone: [facility] Start: 02-16-2022 End: 02-16-2022 ambulatory DO La Kuns Work Phone: [facility] Work Phone: Start: 02-16-2022 End: 02-16-2022 Patient encounter procedure DO La Kuns Work Phone: [facility] [place] Start: 01-26-2022 End: 01-26-2022 ambulatory La Kuns Other [facility] Other Start: 01-26-2022 Telephone encounter La Kuns [facility] Start: 01-06-2022 End: 01-06-2022 ambulatory La Kuns Other [facility] Other Start: 01-06-2022 Telephone encounter La Kuns [facility] Start: 09-18-2021 End: 09-18-2021 ambulatory La Kuns Other [facility] Other Start: 09-18-2021 Nursing evaluation o f patient and report La Kuns [facility] Start: 09-18-2021 Telephone encounter La Gentile [facility] Start: 05-29-2021 End: 05-29-2021 ambulatory La Gentile Other [facility] Other Start: 05-29-2021 Office outpatient vi sit 25 minutes La Gentile [facility] Start: 05-19-2021 End: 05-19-2021 ambulatory La Gentile Other [facility] Other Start: 05-19-2021 Office outpatient vi sit 15 minutes La Gentile [facility] Procedures Date Procedure Procedure Detail Performing Clinician Start: 01-15-2023 CT of head without contrast DO La Gentile Work Phone: Start: 01-15-2023 Doppler ultrasonogra phy of bilateral carotid arteries DO La Gentile Work Phone: Start: 02-17-2022 Radiologic examinati on of knee DO La Gentile Work Phone: Plan of Treatment Date Care Activity Detail Author Start: 01-15-2023 Doppler ultrasonogra phy of bilateral carotid arteries US carotid doppler BI [facility] Comprehensive metabo lic 2000 panel - Serum or Plasma [facility] Patient Education Back Muscle St rain Low Back Pain ED [facility] Work Phone: Patient referral [facility] Work Phone: [facility] Immunizations Immunization Date Immunization Notes Care Provider Fa cility NEGATED: Highlighted row has not occurred!12-06-2018 influenza, seasonal, injectable Patient Objection La Gentile Other [facility] Payers Date Payer Category Payer Self-pay [id number] 2022 Unknown [id number] 1980 Unknown [id number] 1980 Unknown [id number] 1980 Unknown [id number] 1980 Unknown [id number] 1980 Unknown [id number] 1982 Unknown [id number] 1959 Unknown [id number] Private Health Insurance [employer] [id number] Unknown [employer] BC/BS [id number] Unknown HCAP/HFA/FAP Active [id number] Unknown [id number] Unknown [id number] Unknown [id number] Social History Date Type Detail Facility Unknown if ever smoked [facility] Other Sex Assigned At Sex Assigned At Bir th [facility] Other Start: 02-02-2018 End: 07-16-2022 Tobacco smoking status NHIS Never smoked tobacco (finding) [facility] Start: 1980 Sex Assigned At Female F [facility] Clinical Notes 06-23-2016 to 02-04-2023 Note Date & Type Note Facility 02-04-2023 Evaluation note Encounter Date Diagnosis Assessment Notes Jan, Hyperlipidemia (ICD-10 - E78.5) Lipids are elevated but improved somewhat compared to previous findings. No sign of anemia or leukemia. Liver enzymes and kidney functions are within normal range.I recomemnd the patient incease the above medication to three times a week along with dietary modification and exercise. Jan, Lumbar radiculopathy (ICD-10 - M54.16) Back pain and right leg radiculopathy has improved somewhat per patient. A medrol dose pack provided today. We will continue to montior. Jan, Paresthesia of right arm (ICD-10 - R20.2) CT imaging of the head and brain and carotid ultrasound are negative for abnormalties. Jan, Paresthesia of right leg (ICD-10 - R20.2) The patient states leg paresthesia has improved , states she has not woke up with right leg paresthesia since her last office visit. We will continue to monitor. Jan, Paresthesia of hand, bilateral (ICD-10 - R20.2) Right wrist brace and instuctions provided today. Jan, Acute pain of right shoulder (ICD-10 - M25.511) Upon examination the rotator cuff appears to be intact. A short burst of steroids provided. I recommend home stretching exercises to avoid a frozen shoulder, demonstration and handout provided .We will continue to monitor. [facility] Other 08-17-2023 Evaluation note* Encounter Date Diagnosis Assessment Notes Treatment Notes Treatment Clinical Notes Dec, Lumbar radiculopathy (ICD-10 - M54.16) Patient reports that she has responded well to the physical therapy. The back pain has improved and I have encouraged her to continue with the home exercises as ordered Dec, Paresthesia of right arm (ICD-10 - R20.2) Patient is having episodic right sided upper and lower extremity tingling. States she will have to shake them to wake them up. This started approx a month ago. Due to the significance of the unilateral paresthesia I due have concern for TIA. I want her to start taking an asa [address] of the head with and without contrast and bilateral carotid US to look for stenosis. I will also order some lab. She is to restart the the statin therapy as ordered Dec, Paresthesia of right leg (ICD-10 - R20.2) Patient is having episodic right sided upper and lower extremity tingling. States she will have to shake them to wake them up. This started approx a month ago. Due to the significance of the unilateral paresthesia I due have concern for TIA. I want her to start taking an asa [address] of the head with and without contrast and bilateral carotid US to look for stenosis. I will also order some lab. She is to restart the the statin therapy as ordered Dec, Myalgia (ICD-10 - M79.10) Patient reports significant muscle pain and joint pain. She stopped the crestor for sometime and this did not make any difference. She just restarted the Crestor a day or so ago Dec, Arthralgia, unspecified joint (ICD-10 - M25.50) Patient reports significant muscle pain and joint pain. She stopped the crestor for sometime and this did not make any difference. She just restarted the Crestor a day or so ago Dec, TIA (transient ischemic attack) (ICD-10 - G45.9) Patient is having episodic right sided upper and lower extremity tingling. States she will have to shake them to wake them up. This started approx a month ago. Due to the significance of the unilateral paresthesia I due have concern for TIA. I want her to start taking an asa [address] of the head with and without contrast and bilateral carotid US to look for stenosis. I will also order some lab. She is to restart the the statin therapy as ordered [facility] Other 03-24-2023 Evaluation note* Encounter Date Diagnosis Assessment Notes Treatment Notes Treatment Clinical Notes Jul, Lumbar radiculopathy (ICD-10 - M54.16) Pt was bending over at home, and felt a snap in her back, and then had significant pain, which is what lead to to go to the ER. She does voice some improvement from chiropractic adjustments, as well as steroids and the muscle relaxers. Her pain is bilateral, though her hip pain is significantly worse in the right. Upon inspection, she is neurologically intact in her bilateral lower extremities, though she does have pain with straight leg raise on the right. I recommended she start PT, and advised this could help her to get an MRI approved through insurance. She is in agreement, and a written order for PT was provided today. We will continue to monitor. Jul, Right hip pain (ICD-10 - M25.551) PT order provided today. Jul, Cough (ICD-10 - R05.9) The above medications provided today. I demonstrated with her how to use the above inhaler, and samples were provided. We will continue to monitor. Jul, Stress incontinence (ICD-10 - N39.3) Pt c/o stress incontinence after having kids. I used visual aides to explain why this happens, and answered any questions patient had. 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 She voices understanding. [facility] Other 02-28-2023 Evaluation note* Encounter Date Diagnosis Assessment Notes Treatment Notes Treatment Clinical Notes Jun, Lumbar radiculopathy (ICD-10 - M54.16) Patient was seen in the ER at [facility]. I have reviewed the recent reports with patient. All lab and imaging was within normal limits. No indication on leukemia or anemia. UA was negative. Serum HCG negative for . Liver and kidney function normal. Pain is primarily left lower back pain that radiates around the left hip area. Positve straight leg raise detected. I am going to try her on a short burst of steroids to treat any underlying inflammation. If this does not help then I will order some physical therapy. I will see her back for quick follow up and proceed from there. Voiced understanding [facility] Other 02-16-2023 Evaluation note* Encounter Date Diagnosis Assessment Notes Treatment Notes Treatment Clinical Notes Jun, Hyperlipidemia (ICD-10 - E78.5) [facility] Other 10-20-2022 Evaluation note* Encounter Date Diagnosis Assessment Notes Treatment Notes Treatment Clinical Notes Feb, Hyperlipidemia (ICD-10 - E78.5) [facility] Other 08-30-2022 Evaluation note* Encounter Date Diagnosis Assessment Notes Treatment Notes Treatment Clinical Notes Dec, Hyperlipidemia (ICD-10 - E78.5) [facility] Other 05-12-2022 Evaluation note* Encounter Date Diagnosis Assessment Notes Treatment Notes Treatment Clinical Notes September, Cough (ICD-10 - R05.9) In house covid and flu test was negative. Dr. Tovar is aware. September, Sore throat (ICD-10 - J02.9) In house covid and flu test was negative. Dr. Tovar is aware. [facility] Other 01-20-2022 Evaluation note* Encounter Date Diagnosis Assessment Notes Treatment Notes Treatment Clinical Notes May, Hyperlipidemia (ICD-10 - E78.5) Reviewed lab work with patient, cholesterol is significantly high. This has not been checked since 2018. I did advise patient to the level of this, diet will not bring this done to where it needs to be. Patient is to begin on the above medication. Encouraged to monitor diet and increase exercise. May, Cough (ICD-10 - R05.9) Patient does admit that the cough has improved. Patient did finish steroids. I did advise patient to use the Trelegy as this will help. May, GERD (gastroesophageal reflux disease) (ICD-10 - K21.9) Patient does admit that the GERD is keeping her at up at night. Patient is to take OTC Omeprazole twice a day. [facility] Other 01-10-2022 Evaluation note* Encounter Date Diagnosis Assessment Notes Treatment Notes Treatment Clinical Notes May, Cough (ICD-10 - R05.9) In house covid and flu test was negative. I did provide a sample of trelegy and patient used first dose in office today. Blood work ordered for patient to have collected today along with a chest XR. The above medications prescribed and we will recheck in 10-14 days. May, Hyperlipidemia (ICD-10 - E78.5) Blood work ordered for patient to have done today. [facility] Other 02-14-2017 History general Narrative - Reported* Type Description Date Medical History Follows with [facility] for [facility] Medical History 06-23-16 GXT stress test NOH- no rmal Medical History 12/06/18 echo Surgical History hematoma 03/2012 Surgical History eptopic 2007 Surgical History D and C 2010 Surgical History 01/2014 Hospitalization History see above [facility] [employer] Other Evaluation [facility]No [facility] [employer] Other Evaluation noteNo assessment information available [facility] Work Phone: Evaluation note* Author Pau[facility] Authored October 21, 2023 9:35 am The above note written by Mario LUONG acting as human recorder, note dictated by Dr. La Gentile. [facility] Work Phone: Hospital Discharge instructions Additional Instructions If your symptoms return/worsen or you develop any further concerns or symptoms please see your doctor or return to the emergency department immediately.[facility] Work Phone: Advance Directives No Advanced Directives Records Found Advance Directive Response Recorded Date/ Time Advance Directives No September 10, 2017 9:15am Advance Directive Response Recorded Date/ Time Advance Directives No September 10, 2017 8:15am Chief Complaint and Reason for Visit Chief Complaint M25.562 Chief Complaint Back injury at home Chief Complaint low back pain Chief Complaint low back pain r20.2 g45.9 Chief Complaint r20.2 g45.9 R20.2/M79.10/M25.50/G45.9/E78.5 Chief Complaint Review lab Reason for Visit Hyperlipidemia Pain of left heel Plantar fasciitis, left Summary Purpose Family History No Family History Records Found Relationship Condition Age at Onset Recorded Date/T luda father Hypertension Unknown Additional Source Comments REASON FOR VISIT (unrecogniz ed section and content) ongoing cough, covid/flu kaur or to coming inREVIEW LABSClinical Acute Illnesscovid and flu testRefillclinicalClinicalrefillRefillsClinicalER recheck/ back and hip painER noticefollow up lumbar radiculopathyf/u back painREVIEW LABS- f/u parasthesia Care Teams (unrecognized sec tion and content) Team Status: Inactive Member Role Status Dates La Gentile , DO Primary Care Provider, Attending Ariana hernandez Active Team Status: Active Member Role Status Dates La Gentile , DO Primary Care Provider Active Team Status: Inactive Member Role Status Dates La Gentile , DO Primary Care Provider Active Yvan Best , DO Emergency Provider Active Team Status: Inactive Member Role Status Dates La Gentile , DO Primary Care Provide r, Attending Provider Active Start: October 20, 2023 End: October 20, 2023 Team Status: Inactive Member Role Status Dates La Gentile , DO Primary Care Provide r, Attending Provider Active Start: October 21, 2023 End: October 21, 2023 Goals (unrecognized section and content) Goals may be documented in a n alternate section INFORMATION SOURCE (unrecogn ized section and content) DATE CREATED AUTHOR 08/01/2022 [facility] DATE CREATED AUTHOR AUTHOR'S ORGANIZ ATION [facility]/11/2022 [facility] DATE CREATED AUTHOR AUTHOR'S ORGANIZ ATION 10/24/2023 [facility] FOR RECORDS PERTAINING TO PATIENTS WHO ARE OR HAVE BEEN ENROLLED IN A CHEMICAL DEPENDENCY/SUBSTANCEABUSE PROGRAM, SOME INFORMATION MAY BE OMITTED. This clinical summary was aggregated from multiple sources. Caution should be exercised in using it in the provision of clinical care. This summary normalizes information from multiple sources, and as a consequence, information in this document may materially change the coding, format and clinical context of patient data. In addition, data may be omitted in some cases. CLINICAL DECISIONS SHOULD BE BASED ON THE PRIMARY CLINICAL RECORDS. [facility] [facility]. provides no warranty or guarantee of the accuracy or completeness of information in this document.
[2024-05-05 16:08] LABS: Age Gdln ACOG Testing Note (.); HPV Aptima Negative (Negative); IGP, Aptima HPV, rfx 16/18,45 Note (.)
== END 2024-04-27 18:53 | disposition home or self-care (01) ==
LOC: LAB 18:52
PROVIDERS: PCP Family Medicine; Visit Provider Obstetrics & Gynecology
DX: Z01.419 Encounter for gynecological examination (general) (routine) without abnormal findings (principal)
CPT/HCPCS: 87624; 88175

== ENCOUNTER 2024-08-24 09:59 | Outpatient (OUT) | payer OTHER, SELFPAY ==
--- OUTSIDE RECORDS SUMMARY | 2024-08-24 10:05 | XMS_ITS | CCD ---
Author Organization [facility] Care Team Providers Care Chief Learning Officer Name Role Phone La Gentile Unavailable Seferino, DO Tovar Primary Care Provider [phone] Seferino, DO Tovar Attending Provider Seferino, DO Tovar Primary Care Provider DO Yvan Best Emergency Provider JUANA RAYMUNDO Attending Unavailable JUANA RAYMUNDO Attending Unavailable Skylar MOSELEY R Referring Unavailable SEFERINO, DR TOVAR Primary Care Unavailable HAY ., DR CROWELL Admitting Unavailable HAY ., DR CROWELL Attending Unavailable HAY ., DR CROWELL Consulting Unavailable LORELEI ., DR CHENG Admitting Unavailable LORELEI ., DR CHENG Attending Unavailable SEFERINO, DR TOVAR Primary Care Unavailable LORELEI ., DR CHENG Consulting Unavailable LORELEI ., DR CHENG Admitting Unavailable LORELEI ., DR CHENG Attending Unavailable SEFERINO, DR TOVAR Primary Care Unavailable LORELEI ., DR CHENG Consulting Unavailable ZIEBER, DR ROBERTO Lentz Consulting Unavailable SEFERINO, DR TOVAR Primary Care Unavailable TEJA ., SALVATORE Admitting Unavailable TEJA ., SALVATORE Attending Unavailable TEJA Cedeno, SALVATORE Consulting Unavailable SRAVANTHI CARRERA Consulting Unavailable Seferino, DO Tovar Primary Care Provider Seferino, DO Tovar Attending Provider [phone] Canelos, DO Tovar Primary Care Provider Canelos, DO Tovar Attending Provider Kuns, DO Tovar Primary Care Provider Seferino, DO Tovar Attending Provider La Gentile DO Primary Care Provider [phone] La Gentile DO Primary Care Provider La Gentile DO Attending Provider [phone] La Gentile Primary Care Unavailable Seferino, La Attending Unavailable Seferino, La Admitting Unavailable Canelos, La Attending Unavailable Seferino, La Admitting Unavailable Seferino, La Primary Care Unavailable SKYLAR MOSELEY Attending Unavailable SKYLAR MOSELEY Attending Unavailable SKYLAR MOSELEY Attending Unavailable Allergies Allergy Classification Reported Allergen(s) Allergy Type Date of Onset Reaction(s) Facility (20 sources) Doxycycline Drug Allergy 07-17-19 23 stomach upset, Gastrointestinal Upset [facility] (1 source) Doxycycline Drug Allergy 07-05-19 14 [facility] Repository (6 sources) Tetracycline Drug Allergy 04-27-20 24 [facility] (1 source) Doxycycline Drug Allergy 02-05-20 23 [facility] Repository Medications Current Medications Medication Drug Class(es) Dates Sig (Normalized) Sig (Original) azithromycin 250 mg oral tablet (2 sources) Macrolide Antimicrobial Start: 07-31-2022 Zithromax Z-Ivan 250 MG as directed Orally Jul, Active Start: 01-26-2022 Zithromax Z-Pa k 250 MG as directed Orally Jan, Active clobetasol propionate 0.5 mg/ml topical cream (5 sources) Corticosteroid Start: 06-22-2024 Clobetasol 0.0 5 % cream Active 1 APPLIC TOPICAL Three times daily as needed June 22, 2024 12:00am Start: 04-27-2024 End: 05-27-2024 clobetasol (Temovate) 0.05 % cream Indications: Vaginal itching Apply 1 application topically 3 (three) times a day as needed (Use 3 times daily as needed for symptoms.) 45 g 1 04/27/2024 05/27/2024 Active dexamethasone 2 mg oral tablet (1 source) Corticosteroid Start: 05-19-2021 Dexamethasone 2 MG 1 tablet Orally TID X 3 DAYS, BOD X 3 DAYS THEN DAILY X 3 DAYS May, Active ezetimibe 10 mg oral tablet (20 sources) Dietary Cholesterol Absorption Inhibitor Start: 08-02-2023 End: 10-21-2023 take 1 tablet by mouth once daily ezetimibe (Zetia) 10 MG tablet TAKE 1 TABLET BY MOUTH EVERY DAY FOR 90 DAYS 10/14/2023 Active Start: 02-17-2022 take 1 tablet by treasure th every twenty-four hours Zetia 10 MG 1 tablet Orally Once a day for 90 days Feb, Active famotidine 20 mg oral tablet (2 sources) Histamine-2 Receptor Antagonist Start: 06-22-2024 take 1 tablet by mouth once daily Famotidine (Pepcid) 20 mg tablet Active 20 MG PO Daily June 22, 2024 12:00am 30 actuat fluticasone furoate 0.1 mg/actuat / [...] Inhalation Once a day samples May, Active levoFLOXacin 500 mg oral tablet (1 source) Quinolone Antimicrobial Start: 05-19-2021 take 1 tablet by mouth every twenty-four hours Levaquin 500 MG 1 tablet Orally Once a day for 10 day(s) May, Active levonorgestrel 0.614479 mg/hr intrauterine system (20 sources) Progestin, Progestin-containi ng Intrauterine Device Start: 06-07-2024 End: 06-06-2029 Levonorgestrel intrauterine device 52 mg Start: 08-02-2023 End: 06-22-2024 Levonorgestrel (Mirena) 21 m cg/24 hours (8 yrs) 52 mg intrauterine device Discontinued INTRAUTERI August 01, 2023 11:00pm June 22, 2024 9:49am End: 06-07-2024 Levonorgestrel (Mirena, 52 M G,) 20 MCG/DAY intrauterine device Mirena 06/07/2024 Discontinued (Therapy completed) Mirena Active methylPREDNISolone 4 mg oral tablet (12 sources) Corticosteroid Start: 02-04-2023 Medrol 4 MG as directed Orally Jan, Active Start: 01-26-2022 Medrol 4 MG as directed Orally Jan, Active Start: 02-02-2018 End: 08-02-2023 Methylprednisolone 4 mg tabl ets,dose pack Discontinued 0 .ROUTE .COMPLEX February 01, 2018 11:00pm August 02, 2023 2:26pm TAKE ONE ROW OF TABLETS EACH DAY INSTRUCTED ON THE PACKAGE Start: 02-02-2018 End: 08-02-2023 Methylprednisolone Discontin ued 0 .ROUTE .[facility] February 02, 2018 12:00am August 02, 2023 3:26pm TAKE ONE ROW OF TABLETS EACH DAY INSTRUCTED ON THE PACKAGE Start: 02-02-2018 Methylpredniso lone Active 0 .ROUTE .COMPLEX February 01, 2018 11:00pm TAKE ONE ROW OF TABLETS EACH DAY INSTRUCTED ON THE PACKAGE Start: 02-02-2018 Methylpredniso lone Active 0 .ROUTE .[facility] February 02, 2018 12:00am TAKE ONE ROW [...] Drug Class(es) Dates Sig (Normalized) Sig (Original) ibuprofen 600 mg oral tablet (20 sources) Nonsteroidal Anti-inflammatory Drug Start: 07-16-2022 End: 06-22-2024 take 1 tablet by mouth every six hours at mealtime for pain Ibuprofen 600 mg tablet Discontinued 600 MG PO Q6H as needed for pain 26 09July 16, 2022 8:42am June 22, 2024 9:50am take with food take 1 tablet by treasure th at mealtime as needed ibuprofen 400 MG tablet 1 tablet with fo od or milk as needed Orally prn Active take 1 tablet by treasure th three times daily at mealtime as needed Ibuprofen 200 MG 1 tablet with food or milk as needed Orally Three times a day Active methocarbamol 750 mg oral tablet (15 sources) Muscle Relaxant Start: 07-16-2022 End: 07-03-2024 take 1 tablet by mouth three times daily as needed for muscle spasms Methocarbamol 750 mg tablet Discontinued 750 MG PO Three times daily as needed for muscle spasm July 16, 2022 8:42am August 02, 2023 2:26pm take 1 tablet by treasure th every four hours Methocarbamol 750 MG 1 tablet Orally fern ry 4 hrs PRN Active pantoprazole 40 mg delayed release oral tablet (14 sources) Proton Pump Inhibitor Start: 04-10-2024 End: 07-03-2024 take 1 tablet by mouth once daily pantoprazole (ProtoNix) 40 MG EC tablet Take 40 mg by mouth Daily 04/10/2024 07/03/2024 Discontinued (Other) Start: 07-16-2022 End: 08-02-2023 take 1 tablet by mouth once daily Pantoprazole 40 mg tablet,delayed release (DR/EC) Discontinued 40 MG PO Daily July 16, 2022 12:00am August 02, 2023 2:26pm rosuvastatin calcium 5 mg oral tablet (20 sources) HMG-CoA Reductase Inhibitor Start: 05-29-2021 End: 10-21-2023 take 1 tablet by mouth once daily Rosuvastatin 5 mg tablet Discontinued 5 MG PO Daily July 16, 2022 12:00am October 21, 2023 9:02am Problems Active Problems Problem Classification Problem Date Documented Da te Episodic/Chronic Abdominal pain (7 sources) Epigastric pain; Translations: [Unspecified abdominal pain] Onset: 3 Episodic Contraceptive and procreative management (4 sources) Presence of (intrauterine) contraceptive device; Translations: [Patient encounter status] Onset: 3 06-07-2024 Episodic Diabetes mellitus without complication (2 sources) Hyperglycemia; Translations: [Hyperglycemia, unspecified] 06-22-2024 Episodic Disorders of lipid metabolism (20 sources) Hyperlipidemia; Translations: [Hyperlipidemia, unspecified] Onset: 2 Resolved: 2 Chronic Comment on above: Problem List clean-u p per request of Phys. EHR Cmte Esophageal disorders (17 sources) Gastroesophageal reflux disease; [...] Episodic Immunizations and screening for infectious disease (7 sources) Encounter for screening for human papillomavirus (HPV); Translations: [Exposure to sexually transmissible disorder] Onset: 3 04-27-2024 Episodic Menstrual disorders (1 source) Menorrhagia; Translations: [Excessive and frequent menstruation with regular cycle] 07-03-2024 Chronic Other connective tissue disease (1 source) Myalgia, unspecified site Episodic Other connective tissue disease (1 source) Pain in left foot; Translations: [Pain in limb] 10-21-2023 Episodic Other connective tissue disease (1 source) Plantar fascial fibromatosis; Translations: [Plantar fascial fibromatosis] 10-21-2023 Episodic Other female genital disorders (1 source) Abnormal uterine bleeding; Translations: [Abnormal uterine and vaginal bleeding, unspecified] 07-03-2024 Chronic Other female genital disorders (8 sources) Pruritus of vagina; Translations: [Other specified noninflammatory disorders of vagina] Onset: 4 04-27-2024 Episodic Other female genital disorders (1 source) Stenosis of cervix; Translations: [Stricture and stenosis of cervix uteri] 07-03-2024 Episodic Other gastrointestinal disorders (12 sources) Dysphagia; Translations: [Dysphagia, unspecified] Episodic Other lower respiratory disease (12 sources) Dyspnea on exertion; Translations: [Shortness of breath] Episodic Other nervous system disorders (2 sources) Paresthesia of right lower limb; Translations: [Paresthesia of skin] Episodic Other nervous system disorders (2 sources) Paresthesia of right upper limb; Translations: [Paresthesia of skin] Episodic Other nervous system disorders (5 sources) Paresthesia of skin Episodic Other nervous system disorders (1 source) Paresthesia; Translations: [Paresthesia of skin] Episodic Other nervous system disorders (1 source) Skin sensation disturbance; Translations: [Paresthesia of skin] Episodic Other non-traumatic joint disorders (14 sources) Hip pain; Translations: [Pain in left hip] Episodic Other non-traumatic joint disorders (1 source) Pain in right hip Episodic Other non-traumatic joint disorders (1 source) Pain in unspecified joint Episodic Other non-traumatic joint disorders (1 source) [...] [Cervicalgia] Onset: 3 Episodic Sprains and strains (8 sources) Low back strain; Translations: [Strain of muscle, fascia and tendon of lower back, initial encounter] 07-16-2022 Episodic Comment on above: Problem List clean-u p per request of Phys. EHR Cmte Transient cerebral ischemia (3 sources) Transient cerebral ischemia; Translations: [Transient cerebral ischemic attack, unspecified] Chronic Past or Other Problems Problem Classification Problem Date Documented Da te Episodic/Chronic Other upper respiratory infections (1 source) Acute pharyngitis, unspecified Onset: 09-18-2021 Resolved: 09-18-2021 Episodic Unclassified (4 sources) Cough R05.9 Onset: 05-19-2021 Resolved: 09-18-2021 Viral infection (12 sources) COVID-19; Translations: [Lab test positive for detection of COVID-19 virus] Results Test Name Value Interpretation Reference Range Facility Cholesterol [Mass/volume] in Serum or PlasmaOrdered By: La Gentile on 06-20-2024 Cholesterol [Mass/Vol] Cholesterol [Mass/volume] in Serum or Plasma 140-200 [facility] Comment on above: Chol less than 200 m g/dl low riskChol 201-239 mg/dl borderline riskChol 240 mg/dl and greater high risk Cholesterol in HDL [Mass/vol ume] in Serum or PlasmaOrdered By: La Gentile on 06-20-2024 Cholesterol in HDL [Mass/Vol] Serum or plasma high density lipoprotein (HDL) cholesterol measurement 23-92 [facility] Comment on above: HDL CHOL ATP-III CLA SSIFICATION Cardiovascular RiskHDL > or equal to 60 mg/dL LOWHDL < 40 mg/dL HIGH Cholesterol in LDL Calc [Mas s/Vol]Ordered By: La Gentile on 06-20-2024 Cholesterol in LDL [Mass/Vol] Cholesterol in LDL [Mass/volume] in Serum or Plasma by calculation 0-100 [facility] Comment on above: LDL ATP III CLASSIFI CATIONLDL less than 100 mg/dL OptimalLDL 100-129 mg/dL Near or above optimalLDL 130-159 mg/dL Borderline highLDL 160-189 mg/dL HighLDL greater than 189 mg/dL Very high Cholesterol in VLDL Calc [Ma ss/Vol]Ordered By: La Gentile on 06-20-2024 Cholesterol in VLDL [Mass/Vol] Cholesterol in VLDL [Mass/volume] in Serum or Plasma by calculation [facility] Lipid Panelon 06-20-2024 Cholesterol [Mass/Vol] 174 mg/dL Normal 140-200 [facility] Comment on above: Result Comment: Chol less than 200 mg/dl low risk Chol 201-239 mg/dl borderline risk Chol 240 mg/dl and greater high risk Performed By: #### L IPID, TSH3 #### [facility] [address] Cholesterol in HDL [Mass/Vol] 45 mg/dL Normal 23-92 [facility] Comment on above: Result Comment: HDL CHOL ATP-III CLASSIFICATION Cardiovascular Risk HDL > or equal to 60 mg/dL LOW HDL < 40 mg/dL HIGH Performed By: #### L IPID, TSH3 #### [facility] [address] [place] [id number] [facility] Cholesterol.total/Ivette sterol in HDL [Mass ratio] 3.9 {ratio} Normal <5.0 [facility] Comment on above: Performed By: #### L IPID, TSH3 #### [facility] [address] [place] [id number] [facility] LDL Cholesterol,Calculated 97 mg/dL Normal 0-100 [facility] Comment on above: Result Comment: LDL ATP III CLASSIFICATION LDL less than 100 mg/dL Optimal LDL 100-129 mg/dL Near or above optimal LDL 130-159 mg/dL Borderline high LDL 160-189 mg/dL High LDL greater than 189 mg/dL Very high Performed By: #### L IPID, TSH3 #### [facility] [address] [place] [id number] [facility] Triglyceride w/Reflex 162 mg/dL High 0-149 [facility] Comment on above: Result Comment: TRIG ATP III CLASSIFICATION TRIG less than 150 mg/dL Normal TRIG 150-199 mg/dL Borderline high TRIG 200-500 mg/dL High TRIG greater than 500 mg/dL Very high Standard traceable to the Center for Disease Conrtrol and Prevention (CDC) test method. Performed By: #### L IPID, TSH3 #### [facility] [address] [place] [id number] [facility] VLDL CHOLESTEROL 32 mg/dL Normal [facility] Comment on above: Performed By: #### L IPID, TSH3 #### [facility] [address] [place] [id number] [facility] Serum or plasma total choles terol/high density lipoprotein (HDL) cholesterol mass ratOrdered By: La Gentile on 06-20-2024 Cholesterol.total/Ivette sterol in HDL [Mass ratio] Serum or plasma total cholesterol/high density lipoprotein (HDL) cholesterol mass rat <5.0 [facility] Thyroid Stimulating Hormoneo n 06-20-2024 TSH Qn 2.17 m[IU]/L Normal 0.45-5.33 [facility] Comment on above: Result Comment: PERF ORMED BY: [facility] [address] [place] [address] PATHOLOGIST [employer] EXAM[employer]ER ELLI MUNOZ M.D. Performed By: #### L IPID, TSH3 #### [facility] [address] Thyrotropin [Units/volume] i n Serum or PlasmaOrdered By: La Gentile on 06-20-2024 TSH Qn Thyrotropin [Units/volume] in Serum or Plasma 0.45-5.33 [facility] Triglyceride [Mass/volume] i n Serum or PlasmaOrdered By: La Gentile on 06-20-2024 Triglyceride [Mass/Vol] Triglyceride [Mass/volume] in Serum or Plasma High 0-149 [facility] Comment on above: TRIG ATP III CLASSIF ICATIONTRIG less than 150 mg/dL NormalTRIG 150-199 mg/dL Borderline highTRIG 200-500 mg/dL High TRIG greater than 500 mg/dL Very highStandard traceable to the Center for Disease Conrtrol and Prevention (CDC) test method. HCG ( test) Ql (U)o n 06-07-2024 Interpretation and review of laboratory results Normal [facility] Preg Test, Ur Negative Negative [facility] IUD Removalon 06-07-2024 Mounika Amaro LPN 06/07/2024 5:07 PM IUD Removal Date/Time: 06/07/2024 4:43 PM Performed by: Skylar Moseley DO Authorized by: Skylar Moseley DO Consent: Consent obtained: Written Consent given by: Patient Procedure risks and benefits discussed: yes Patient questions answered: yes Patient agrees, verbalizes understanding, and wants to proceed: yes Educational handouts given: yes Instructions and paperwork completed: yes [place] protocol: Patient states understanding of procedure being performed: yes Relevant documents present and verified: yes Test results available and properly labeled: yes Imaging studies available: yes Required blood products, implants, devices, and special equipment available: yes Site marked: yes Procedure: Removed with no complications: yes Removal due to mechanical complications of IUD: no Removal due to infection and inflammatory reaction: no Comments: IUD Removal: Patient presents today for removal of IUD. Written consent was obtained and patient was placed in dorsal lithotomy position with feet in stirrups. A sterile speculum was inserted into the vagina and the cervix was visualized. The IUD strings were grasped gently with forceps and the IUD was removed in its entirety without difficulty. The IUD was shown to the patient then properly discarded. Follow Up: Patient is to return to the office for annual exam unless needed otherwise Unable to insert iud- pt will be signed up for Endometrial ablation and lap bilateral salpingectomy. [facility] IUD RemovalOrdered By: Mounika Amaro on 06-07-2024 [facility] IGP,APTIMA HPV,AGE GDLNon AGE GDLN ACOG TESTING Note . [facility] Comment on above: TESTS RESULT FLAG UN ITS REF RANGE LAB Clinician Provided Cytology Information Source.............Cervix;Endocervix No. of containers..01 ThinPrep Vial Age Algo ACOG Aura... FLAG LEGEND: L-Low Normal,H-High Normal,LL-Alert Low,HH-Alert High <-Panic Low,>-Panic High,A-Abnormal,AA-Critical Abnormal Performed at: 01 =G [address] [address] Damaris Cooper MD, HPV APTIMA Negative Negative [facility] Comment on above: This nucleic acid am plification test detects fourteen high- risk HPV types (16,18,31,33,35,39,45,51,52,56,58,59,66,68) without differentiation. Performed at: = - [facility] [id number] [employer]: Damaris Cooper MD, Phone: [phone] Performed at: - [facility] [id number] [employer]: Damaris Cooper MD, Phone: [phone] IGP, APTIMA HPV, RFX 16/18,45 Note . [facility] Comment on above: TESTS RESULT FLAG U NITS REF RANGE LAB DIAGNOSIS: 02 NEGATIVE FOR INTRAEPITHELIAL LESION OR MALIGNANCY. Specimen adequacy: 02 Satisfactory for evaluation. Endocervical and/or squamous metaplastic cells (endocervical component) are present. Performed by: Alexx Mccullough, Contract Forester ([facility]) . 02 Note: Note 02 The Pap smear is a screening test designed to aid in the detection of premalignant and malignant conditions of the uterine cervix. It is not a diagnostic procedure and should not be used as the sole means of detecting cervical cancer. Both false-positive and false-negative reports do occur. Test Methodology: Note 02 This liquid based ThinPrep(R) pap test was screened with the use of an image guided system. HPV Genotype Reflex Note 02 Criteria not met, HPV Genotype not performed. FLAG LEGEND: L-Low Normal,H-High Normal,LL-Alert Low,HH-Alert High <-Panic Low,>-Panic High,A-Abnormal,AA-Critical Abnormal Performed at: [address] [address] Damaris Cooper MD, BRUSH-SPATULA CERVIX ENDOCERVIX [facility] RECURRENT VAGINITIS (HTRX)on 04-28-2024 ATOPOBIUM VAGINAE 0 [facility] ATOPOBIUM VAGINAE Not detected [facility] BVAB 2,3 (BACTERIAL VAGINOSIS ASSOCIATED BACTERIA 2, 3); MOBILUNCUS SPP 0 [facility] BVAB 2,3 (BACTERIAL VAGINOSIS ASSOCIATED BACTERIA 2, 3); MOBILUNCUS SPP Not detected [facility] JENNY ALBICANS, PARAPSILOSIS, TROPICALIS 0 [facility] JENNY ALBICANS, PARAPSILOSIS, TROPICALIS Not detected [facility] JENNY GLABRATA 0 [facility] JENNY GLABRATA Not detected [facility] JENNY KRUSEI 0 [facility] JENNY KRUSEI Not detected [facility] CHLAMYDIA TRACHOMATIS 0 [facility] CHLAMYDIA TRACHOMATIS Not detected [facility] GARDNERELLA VAGINALIS 0 [facility] GARDNERELLA VAGINALIS Not detected [facility] MEGASPHAERA (TYPES 1, 2) 0 [facility] MEGASPHAERA (TYPES 1, 2) Not detected [facility] MYCOPLASMA GENITALIUM 0 [facility] MYCOPLASMA GENITALIUM Not detected [facility] NEISSERIA GONORRHOEAE 0 [facility] NEISSERIA GONORRHOEAE Not detected [facility] TRICHOMONAS VAGINALIS 0 [facility] TRICHOMONAS VAGINALIS Not detected [facility] Human papilloma virus 16+18+ 31+33+35+39+45+51+52+56+58+59+66+68 DNA [Presence] in [place] 04-27-2024 HPV 16+18+31+33+35+39+45+51 +52+56+58+59+66+68 DNA Probe+sig amp Ql (Cvx) Human papilloma virus 16+18+31+33+35+39+45+ 51+52+56+58+59+66+68 DNA [Presence] in Cer Negative [facility] Comment on above: This nucleic acid am plification test detects fourteen high-risk HPV types (16,18,31,33,35,39,45,51,52,56,58,59,66,68)without differentiation.Performed at: =G - [facility] [id number] [facility], [place] [id number] Director: Damaris Cooper MD, Phone: [phone] at: WB - [facility] [address], [place] [id number] Director: Damaris Cooper MD, Phone: [phone] No Panel Informationon 04-27 HPV High Risk Other Comment Note . [facility] Comment on above: TESTS RESULT FLAG UN ITS REF RANGE LAB -DIAGNOSIS: 02 NEGATIVE FOR INTRAEPITHELIAL LESION OR MALIGNANCY.Specimen adequacy: 02 Satisfactory for evaluation. Endocervical and/or squamous metaplastic cells (endocervical component) are present.Performed by: Alexx Mccullough, Contract Forester ([facility]). 02Note: Note 02 The Pap smear is a screening test designed to aid in the detection of premalignant and malignant conditions of the uterine cervix. It is not a diagnostic procedure and should not be used as the sole means of detecting cervical cancer. Both false-positive and false-negative reports do occur.Test Methodology: Note 02 This liquid based ThinPrep(R) pap test was screened with the use of an image guided system.HPV Genotype Reflex Note 02 Criteria not met, HPV Genotype not performed. -------- FLAG LEGEND: L-Low Normal,H-High Normal,LL-Alert Low,HH-Alert High <-Panic Low,>-Panic High,A-Abnormal,AA-Critical Abnormal ------Performed at:02 WB [facility] [address] [place] [address] Damaris Cooper MD, Reference Lab Test Patient Age Note . [facility] Comment on above: TESTS RESULT FLAG UN ITS REF RANGE LAB - Clinician Provided Cytology Information Source.............Cervix;Endocervix No. of containers..01 ThinPrep VialAge [place]o LIYAH Aura... 30-65 01 FLAG LEGEND: L-Low Normal,H-High Normal,LL-Alert Low,HH-Alert High <-Panic Low,>-Panic High,A-Abnormal,AA-Critical Abnormal ------Performed at:01 =G [facility] [address] [place] [address] Damaris Cooper MD, Basophils Auto (Bld) [#/Vol] on 04-10-2024 Basophils (Bld) [#/Vol] Automated basoph il count 0.0-0.1 [facility] Basophils/100 WBC Auto (Bld) on 04-10-2024 Basophils/100 WBC (Bld) Automated basophil % 0. 2-2.0 [facility] Eosinophils/100 WBC Auto (Bl d)on 04-10-2024 Eosinophils/100 WBC (Bld) Automated eosinophil % 0.9-7.0 [facility] Erythrocyte distribution wid th Auto (RBC) [Ratio]on 04-10-2024 Erythrocyte distribution width (RBC) [Ratio] Erythrocyte distribution width [Ratio] by Automated count 11.0-15.0 [facility] Estimated glomerular filtrat ion rate (GFR) non- Americanon 04-10-2024 GFR/1.73 sq M.predicted among non-blacks MDRD (S/P/Bld) [Vol rate/Area] Estimated glomerular filtration rate (GFR) non- >=60 mL/min/1.73m 2 [facility] Globulin Calc (S) [Mass/Vol] on 04-10-2024 Globulin (S) [Mass/Vol] Serum globulin measurement by calculation (mass/volume) [facility] Hematocrit Auto (Bld) [Volum e fraction]on 04-10-2024 Hematocrit (Bld) [Volume fraction] Hematocrit [Volume Fraction] of Blood by Automated count 36.0-48.0 [facility] Hemoglobin [Mass/volume] in Bloodon 04-10-2024 Hemoglobin (Bld) [Mass/Vol] Hemoglobin [Mass/volume] in Blood 12.0-16.0 [facility] Laboratory - Chemistry and C hemistry - challengeon 04-10-2024 Bilirubin Ql (U) Negative NEGATIVE [facility] Glucose (U) [Mass/Vol] [facility] Ketones Ql (U) Negative NEGATIVE [facility] pH (U) 6.0 [pH] 5.0-9.0 [facility] Specific gravity (U) [Rel density] 1.020 1.005-1.025 [facility] Urobilinogen Qn (U) 0.2 {Rubi'U}/dL 0.2-1.0 [facility] Albumin [Mass/Vol] 3.8 g/dL 3.4-5.0 [facility] ALP [Catalytic activity/Vol] 68 U/L 46-116 [facility] ALT [Catalytic activity/Vol] 22 U/L 14-59 [facility] AST [Catalytic activity/Vol] 12 U/L Low 15-37 [facility] Bilirubin [Mass/Vol] 0.4 mg/dL 0.2-1.0 [facility] Calcium [Mass/Vol] 8.9 mg/dL 8.5-10.1 [facility] Chloride [Moles/Vol] 105 mmol/L 98-107 [facility] CO2 [Moles/Vol] 26.4 mmol/L 21.0-32.0 [facility] Creatinine [Mass/Vol] 0.96 mg/dL 0.55-1.02 [facility] GFR/1.73 sq M.predicted MDRD (S/P/Bld) [Vol rate/Area] mL/min/{1.73_m2} >=60 mL/min/1.73m 2 [facility] Glucose [Mass/Vol] 138 mg/dL High 74-106 [facility] Lactate [Moles/Vol] 0.9 mmol/L 0.4-2.0 [facility] Lipase [Catalytic activity/Vol] 44.0 U/L 16.0-77.0 [facility] Potassium [Moles/Vol] 4.3 mmol/L 3.5-5.1 [facility] Protein [Mass/Vol] 7.4 g/dL 6.4-8.2 [facility] Sodium [Moles/Vol] 142 mmol/L 136-145 [facility] Urea nitrogen [Mass/Vol] 12.0 mg/dL 7.0-18.0 [facility] Urea nitrogen/Creatinine [Mass ratio] 12.5 mg/mg [facility] Laboratory - Hematology and Cell countson 04-10-2024 Immature granulocytes/100 WBC (Bld) 0.3 % 0.0-0.5 [facility] Laboratory - Specimen inform ationon 04-10-2024 Appearance (U) CLEAR CLEAR [facility] Color (U) LT. YELLOW YELLOW [facility] Laboratory - Urinalysison Leukocyte esterase Test strip Ql (U) TRACE Abnormal NEGATIVE [facility] Mucus Ql (Urine sed) TRACE Abnormal NONE SEEN [facility] Nitrite Ql (U) Negative NEGATIVE [facility] Protein Ql (U) Negative NEG/TRACE [facility] Leukocytes [#/volume] correc justin for nucleated erythrocytes in Blood by Automated counon 04-10-2024 WBC corrected for nucl RBC Auto (Bld) [#/Vol] Leukocytes [#/volume] corrected for nucleated erythrocytes in Blood by Automated coun 4.0-11.0 [facility] Lymphocytes Auto (Bld) [#/Vo l]on 04-10-2024 Lymphocytes (Bld) [#/Vol] Lymphocytes [#/volume] in Blood by Automated count 1.2-3.8 [facility] Lymphocytes/100 WBC Auto (Bl d)on 04-10-2024 Lymphocytes/100 WBC (Bld) Lymphocytes/100 leukocytes in Blood by Automated count 20.5-60.0 [facility] MCH Auto (RBC) [Entitic mass ]on 04-10-2024 MCH (RBC) [Entitic mass] MCH [Entitic mass] by Automated count 26.7-34.0 [facility] MCHC Auto (RBC) [Mass/Vol]on 04-10-2024 MCHC (RBC) [Mass/Vol] MCHC [Mass/volume] by Automated count 29.9-35.2 [facility] MCV Auto (RBC) [Entitic vol] on 04-10-2024 MCV (RBC) [Entitic vol] MCV [Entitic vol ume] by Automated count 81.0-99.0 [facility] Monocytes Auto (Bld) [#/Vol] on 04-10-2024 Monocytes (Bld) [#/Vol] Automated blood monocyte count 0.3-0.8 [facility] Monocytes/100 WBC Auto (Bld) on 04-10-2024 Monocytes/100 WBC (Bld) Automated monocyte % 1. 7-12.0 [facility] Neutrophils Auto (Bld) [#/Vo l]on 04-10-2024 Neutrophils (Bld) [#/Vol] Neutrophils [#/volume] in Blood by Automated count 1.4-6.5 [facility] Neutrophils/100 WBC Auto (Bl d)on 04-10-2024 Neutrophils/100 WBC (Bld) Automated neutrophil % 43.0-75.0 [facility] No Panel Informationon 04-10 Urine Bacteria LARGE #/HPF Abnormal NONE SEEN [facility] Urine Culture Reflexed YES [facility] Urine Microscopic Review YES [facility] Urine Occult Blood Negative NEGATIVE [facility] Urine Other Casts NONE SEEN #/LPF NONE SEEN [facility] Urine Other Crystals None Seen #/HPF None Seen [facility] Urine RBC 0-2 #/HPF 0-2 [facility] Urine Squamous Epithelial Cells RARE #/LPF NONE/RARE [facility] Urine WBC 2-5 #/HPF Abnormal NONE SEEN [facility] Eosinophils # (Auto) 0.1 10 3/uL 0.0-0.7 [facility] Human Chorionic Gonadotropin, Qual Negative NEGATIVE [facility] Immature Granulocyte # (Auto) 0.02 10 3/uL 0.00-0.03 [facility] Troponin I High Sensitivity <4.0 pg/mL Low 4.0-51.3 [facility] Comment on above: CUT-OFF POINTS HAVE BEEN ESTABLISHED BASED ON THE FOURTHUNIVERSAL DEFINITION OF MYOCARDIAL INFARCTION. THE UPPERREFERENCE LIMIT (URL) OF TROPONIN, DEFINED THE 99THPERCENTILE OF cTnI DISTRIBUTION IN A REFERENCE POPULATION,HAS BEEN CONFIRMED THE DECISION THRESHOLD FOR MIDIAGNOSIS.99TH PERCENTILE = 51.4 PG/MLNOTE: HIGH-SENSITIVITY TROPONIN ASSAY IS NOT INTENDED TO BEUSED IN ISOLATION BUT SHOULD BE INTERPRETED IN CONJUNCTIONWITH OTHER DIAGNOSTIC AND CLINICAL INFORMATION. Platelet mean volume Auto (B ld) [Entitic vol]on 04-10-2024 Platelet mean volume (Bld) [Entitic vol] Platelet mean volume [Entitic volume] in Blood by Automated count 9.5-13.5 [facility] Platelets Auto (Bld) [#/Vol] on 04-10-2024 Platelets (Bld) [#/Vol] Platelets [#/vol ume] in Blood by Automated count 150-450 [facility] RBC Auto (Bld) [#/Vol]on RBC (Bld) [#/Vol] Erythrocytes [#/volume] in Blood by Automated count 4.20-5.40 [facility] Serum or plasma albumin/glob ulin mass ratioon 04-10-2024 Albumin/Globulin [Mass ratio] Serum or plasma albumin/globulin mass ratio [facility] Serum or plasma anion gap de terminationon 04-10-2024 Anion gap [Moles/Vol] Serum or plasma an ion gap determination [facility] Alanine aminotransferase [En zymatic activity/volume] in Serum or PlasmaOrdered By: La Gentile on 10-20-2023 ALT [Catalytic activity/Vol] 16 U/L Normal 7-52 [facility] Comment on above: Order Comment: Reaso n for Exam Hyperlipidemia Performed By: #### C MP, LIPID #### [facility] [address] [place] [address] [place] Albumin [Mass/volume] in Ser um or Plasma by Bromocresol green (BCG) dye binding methoOrdered By: La Gentile on 10-20-2023 Albumin BCG dye [Mass/Vol] 4.3 g/dL 3.5-5.7 [facility] Alkaline phosphatase [Enzyma tic activity/volume] in Serum or PlasmaOrdered By: La Gentile on 10-20-2023 ALP [Catalytic activity/Vol] 52 U/L Normal 34-104 [facility] Comment on above: Order Comment: Reaso n for Exam Hyperlipidemia Performed By: #### C MP, LIPID #### [facility] [address] [place] [address] [place] Aspartate aminotransferase [ Enzymatic activity/volume] in Serum or PlasmaOrdered By: La Gentile on 10-20-2023 AST [Catalytic activity/Vol] 14 U/L Normal 13-39 [facility] Comment on above: Order Comment: Reaso n for Exam Hyperlipidemia Performed By: #### C MP, LIPID #### [facility] [address] [place] [address] [place] Bilirubin.total [Mass/volume ] in Serum or PlasmaOrdered By: La Gentile on 10-20-2023 Bilirubin [Mass/Vol] 0.7 mg/dL Normal 0.3-1.0 [facility] Comment on above: Order Comment: Reaso n for Exam Hyperlipidemia Performed By: #### C MP, LIPID #### [facility] [address] [place] [address] [place] Calcium [Mass/volume] in Ser um or PlasmaOrdered By: Lakylie Lemoss on 10-20-2023 Calcium [Mass/Vol] 9.1 mg/dL Normal 8.6-10.3 [facility] Comment on above: Order Comment: Reaso n for Exam Hyperlipidemia Performed By: #### C MP, LIPID #### [facility] [address] [place] [address] [place] Carbon dioxide, total [Moles /volume] in Serum or PlasmaOrdered By: La Gentile on 10-20-2023 CO2 [Moles/Vol] 27.0 mmol/L Normal 21.0-31.0 [facility] Comment on above: Order Comment: Reaso n for Exam Hyperlipidemia Performed By: #### C MP, LIPID #### [facility] [address] [place] [address] [place] Chloride [Moles/volume] in S aditi or PlasmaOrdered By: La Gentile on 10-20-2023 Chloride [Moles/Vol] 106 mmol/L Normal 98-107 [facility] Comment on above: Order Comment: Reaso n for Exam Hyperlipidemia Performed By: #### C MP, LIPID #### [facility] [address] [place] [address] [place] Cholesterol [Mass/volume] in Serum or PlasmaOrdered By: La Lemoss on 10-20-2023 Cholesterol [Mass/Vol] 167 mg/dL Normal 140-200 [facility] Comment on above: Chol less than 200 m g/dl low riskChol 201-239 mg/dl borderline riskChol 240 mg/dl and greater high risk Order Comment: Reaso n for Exam Hyperlipidemia Result Comment: Chol less than 200 mg/dl low risk Chol 201-239 mg/dl borderline risk Chol 240 mg/dl and greater high risk Performed By: #### C MP, LIPID #### [facility] [address] [place] [id number] [place] Cholesterol in LDL Calc [Mas s/Vol]Ordered By: Lakylie Gentile on 06-12-2024 Cholesterol in LDL [Mass/Vol] 84 mg/dL 0-100 [facility] Comment on above: LDL ATP III CLASSIFI CATIONLDL less than 100 mg/dL OptimalLDL 100-129 mg/dL Near or above optimalLDL 130-159 mg/dL Borderline highLDL 160-189 mg/dL HighLDL greater than 189 mg/dL Very high Cholesterol in VLDL Calc [Ma ss/Vol]Ordered By: La Gentile on 10-20-2023 Cholesterol in VLDL [Mass/Vol] 36 mg/dL [facility] Comprehensive Metabolic Pane ken[place] 10-20-2023 Albumin [Mass/Vol] 4.3 g/dL Normal 3.5-5.7 [facility] Comment on above: Order Comment: Reaso n for Exam Hyperlipidemia Performed By: #### C MP, LIPID #### [facility] [address] [place] [id number] [place] GFR/1.73 sq M.predicted MDRD (S/P/Bld) [Vol rate/Area] mL/min/{1.73_m2} Normal [facility] Comment on above: Order Comment: Reaso n for Exam Hyperlipidemia Performed By: #### C MP, LIPID #### [facility] [address] [place] [id number] [place] Creatinine [Mass/volume] in Serum or PlasmaOrdered By: La Gentile on 10-20-2023 Creatinine [Mass/Vol] 0.81 mg/dL Normal 0.60-1.20 [facility] Comment on above: Order Comment: Reaso n for Exam Hyperlipidemia Performed By: #### C MP, LIPID #### [facility] [address] [place] [id number] [place] Glucose [Mass/volume] in Ser um or PlasmaOrdered By: La Gentile on 10-20-2023 Glucose [Mass/Vol] 109 mg/dL High 70-100 [facility] Comment on above: ADA recommended refe rence rangeRandom Glucose Reference Range is dependent on time and content of last meal. Glucose of more than 200 mg/dL in a nonstressed, ambulatory subject supports the diagnosis of Diabetes Mellitus. Order Comment: Reaso n for Exam Hyperlipidemia Result Comment: [place] om Glucose Reference Range is dependent on time and content of last meal. Glucose of more than 200 mg/dL in a nonstressed, ambulatory subject supports the diagnosis of Diabetes Mellitus. ADA recommended reference range Performed By: #### C MP, LIPID #### [facility] [address] Lipid Panelon 10-20-2023 LDL Cholesterol,Calculated 84 mg/dL Normal 0-100 [facility] Comment on above: Order Comment: Reaso n for Exam Hyperlipidemia Result Comment: LDL ATP III CLASSIFICATION LDL less than 100 mg/dL Optimal LDL 100-129 mg/dL Near or above optimal LDL 130-159 mg/dL Borderline high LDL 160-189 mg/dL High LDL greater than 189 mg/dL Very high Performed By: #### C MP, LIPID #### [facility] [address] Triglyceride w/Reflex 183 mg/dL High 0-149 [facility] Comment on above: Order Comment: Reaso n for Exam Hyperlipidemia Result Comment: TRIG ATP III CLASSIFICATION TRIG less than 150 mg/dL Normal TRIG 150-199 mg/dL Borderline high TRIG 200-500 mg/dL High TRIG greater than 500 mg/dL Very high Standard traceable to the Center for Disease Conrtrol and Prevention (CDC) test method. Performed By: #### C MP, LIPID #### [facility] [address] VLDL CHOLESTEROL 36 mg/dL Normal [facility] Comment on above: Order Comment: Reaso n for Exam Hyperlipidemia Performed By: #### C MP, LIPID #### [facility] [address] No Panel InformationOrdered By: La Gentile on 10-20-2023 Estimated GFR (CKD-EPI) > 60.0 mL/Min [facility] Creatinine Clearance (Chem N/A [facility] Potassium [Moles/volume] in Serum or PlasmaOrdered By: La Gentile on 10-20-2023 Potassium [Moles/Vol] 4.2 mmol/L Normal 3.5-5.1 [facility] Comment on above: Order Comment: Reaso n for Exam Hyperlipidemia Performed By: #### C MP, LIPID #### [facility] [address] Protein [Mass/volume] in Ser um or PlasmaOrdered By: La Gentile on 10-20-2023 Protein [Mass/Vol] 6.7 g/dL Normal 6.4-8.9 [facility] Comment on above: Order Comment: Reaso n for Exam Hyperlipidemia Performed By: #### C MP, LIPID #### [facility] [address] Serum globulin measurement b y calculation (mass/volume)Ordered By: La Gentile on 10-20-2023 Globulin (S) [Mass/Vol] 2.4 g/dL Normal [facility] Comment on above: Order Comment: Reaso n for Exam Hyperlipidemia Performed By: #### C MP, LIPID #### [facility] [address] [place] [address] Serum or plasma albumin/glob ulin mass ratioOrdered By: La Gentile on 10-20-2023 Albumin/Globulin [Mass ratio] 1.8 {ratio} Normal [facility] Comment on above: Order Comment: Reaso n for Exam Hyperlipidemia Performed By: #### C MP, LIPID #### [facility] [address] [place] [address] Serum or plasma anion gap de terminationOrdered By: La Gentile on 10-20-2023 Anion gap [Moles/Vol] 9.2 mmol/L Normal 6.0-15.0 [facility] Comment on above: Order Comment: Reaso n for Exam Hyperlipidemia Performed By: #### C MP, LIPID #### [facility] [address] [place] [address] Serum or plasma high density lipoprotein (HDL) cholesterol measurementOrdered By: La Gentile on 10-20-2023 Cholesterol in HDL [Mass/Vol] 46 mg/dL Normal 23-92 [facility] Comment on above: HDL CHOL ATP-III CLA SSIFICATION Cardiovascular RiskHDL > or equal to 60 mg/dL LOWHDL < 40 mg/dL HIGH Order Comment: Reaso n for Exam Hyperlipidemia Result Comment: HDL CHOL ATP-III CLASSIFICATION Cardiovascular Risk HDL > or equal to 60 mg/dL LOW HDL < 40 mg/dL HIGH Performed By: #### C MP, LIPID #### [facility] [address] Serum or plasma total choles terol/high density lipoprotein (HDL) cholesterol mass ratOrdered By: La Gentile on 10-20-2023 Cholesterol.total/Ivette sterol in HDL [Mass ratio] 3.6 {ratio} Normal <5.0 [facility] Comment on above: Order Comment: Reaso n for Exam Hyperlipidemia Result Comment: PERF ORMED BY: [place] [address] PATHOLOGIST [employer] MARLENY VILLEGAS M.D. Performed By: #### C MP, LIPID #### [address] Sodium [Moles/volume] in Ser um or PlasmaOrdered By: La Gentile on 10-20-2023 Sodium [Moles/Vol] 138 mmol/L Normal 136-145 [facility] Comment on above: Order Comment: Reaso n for Exam Hyperlipidemia Performed By: #### C MP, LIPID #### [facility] [address] [place] [address] Triglyceride [Mass/volume] i n Serum or PlasmaOrdered By: La Gentile on 10-20-2023 Triglyceride [Mass/Vol] 183 mg/dL 0-149 [facility] Comment on above: TRIG ATP III CLASSIF ICATIONTRIG less than 150 mg/dL NormalTRIG 150-199 mg/dL Borderline highTRIG 200-500 mg/dL High TRIG greater than 500 mg/dL Very highStandard traceable to the Center for Disease Conrtrol and Prevention (CDC) test method. Urea nitrogen [Mass/volume] in Serum or PlasmaOrdered By: La Gentile on 10-20-2023 Urea nitrogen [Mass/Vol] 8 mg/dL Normal 7-25 [facility] Comment on above: Order Comment: Reaso n for Exam Hyperlipidemia Performed By: #### C MP, LIPID #### [facility] [address] [place] [address] [place] Alanine aminotransferase [En zymatic activity/volume] in Serum or PlasmaOrdered By: La Gentile on 02-02-2023 ALT [Catalytic activity/Vol] 15 U/L 7-52 [facility] Albumin [Mass/volume] in Ser um or Plasma by Bromocresol green (BCG) dye binding methoOrdered By: La Gentile on 02-02-2023 Albumin BCG dye [Mass/Vol] 4.4 g/dL 3.5-5.7 [facility] Alkaline phosphatase [Enzyma tic activity/volume] in Serum or PlasmaOrdered By: La Gentile on 02-02-2023 ALP [Catalytic activity/Vol] 55 U/L 34-104 [facility] Aspartate aminotransferase [ Enzymatic activity/volume] in Serum or PlasmaOrdered By: La Gentile on 02-02-2023 AST [Catalytic activity/Vol] 13 U/L 13-39 [facility] Basophils Auto (Bld) [#/Vol] Ordered By: La Gentile on 02-02-2023 Basophils (Bld) [#/Vol] 0.0 10*3/uL 0.0-0.2 [facility] Basophils/100 WBC Auto (Bld) Ordered By: La Gentile on 02-02-2023 Basophils/100 WBC (Bld) 0.4 % . [facility] Bilirubin.total [Mass/volume ] in Serum or PlasmaOrdered By: La Gentile on 02-02-2023 Bilirubin [Mass/Vol] 0.7 mg/dL 0.3-1.0 [facility] Calcium [Mass/volume] in Ser um or PlasmaOrdered By: La Gentile on 02-02-2023 Calcium [Mass/Vol] 9.1 mg/dL 8.6-10.3 [facility] Carbon dioxide, total [Moles /volume] in Serum or PlasmaOrdered By: La Gentile on 02-02-2023 CO2 [Moles/Vol] 26.1 mmol/L 21.0-31.0 [facility] Chloride [Moles/volume] in S aditi or PlasmaOrdered By: La Gentile on 02-02-2023 Chloride [Moles/Vol] 106 mmol/L 98-107 [facility] Cholesterol [Mass/volume] in Serum or PlasmaOrdered By: La Gentile on 02-02-2023 Cholesterol [Mass/Vol] 206 mg/dL 140-200 [facility] Comment on above: Chol less than 200 m g/dl low riskChol 201-239 mg/dl borderline riskChol 240 mg/dl and greater high risk Cholesterol in LDL Calc [Mas s/Vol]Ordered By: La Gentile on 02-02-2023 Cholesterol in LDL [Mass/Vol] 112 mg/dL 0-100 [facility] Comment on above: LDL ATP III CLASSIFI CATIONLDL less than 100 mg/dL OptimalLDL 100-129 mg/dL Near or above optimalLDL 130-159 mg/dL Borderline highLDL 160-189 mg/dL HighLDL greater than 189 mg/dL Very high Cholesterol in VLDL Calc [Ma ss/Vol]Ordered By: La Gentile on 02-02-2023 Cholesterol in VLDL [Mass/Vol] 47 mg/dL [facility] Creatinine [Mass/volume] in Serum or PlasmaOrdered By: La Gentile on 02-02-2023 Creatinine [Mass/Vol] 0.87 mg/dL 0.60-1.20 [facility] Eosinophils Auto (Bld) [#/Vo l]Ordered By: La Gentile on 02-02-2023 Eosinophils (Bld) [#/Vol] 0.1 10*3/uL 0.0-0.45 [facility] Eosinophils/100 WBC Auto (Bl d)Ordered By: La Gentile on 02-02-2023 Eosinophils/100 WBC (Bld) 1.7 % . [facility] Erythrocyte distribution wid th Auto (RBC) [Ratio]Ordered By: La Gentile on 02-02-2023 Erythrocyte distribution width (RBC) [Ratio] 13.5 % 11.9-15.3 [facility] Globulin Calc (S) [Mass/Vol] Ordered By: La Gentile on 02-02-2023 Globulin (S) [Mass/Vol] 2.4 g/dL [facility] Glucose [Mass/volume] in Ser um or PlasmaOrdered By: La Gentile on 02-02-2023 Glucose [Mass/Vol] 100 mg/dL 70-100 [facility] Comment on above: ADA recommended refe rence rangeRandom Glucose Reference Range is dependent on time and content of last meal. Glucose of more than 200 mg/dL in a nonstressed, ambulatory subject supports the diagnosis of Diabetes Mellitus. Hematocrit Auto (Bld) [Volum e fraction]Ordered By: La Gentile on 02-02-2023 Hematocrit (Bld) [Volume fraction] 38.3 % 34.0-46.4 [facility] Hemoglobin [Mass/volume] in BloodOrdered By: La Gentile on 02-02-2023 Hemoglobin (Bld) [Mass/Vol] 12.8 g/dL 11.8-15.4 [facility] Leukocytes [#/volume] correc justin for nucleated erythrocytes in Blood by Automated counOrdered By: La Gentile on 02-02-2023 WBC corrected for nucl RBC Auto (Bld) [#/Vol] 6.1 10*3/uL 3.8-11.6 [facility] Lymphocytes Auto (Bld) [#/Vo l]Ordered By: La Gentile on 02-02-2023 Lymphocytes (Bld) [#/Vol] 1.6 10*3/uL 1.00-4.8 [facility] Lymphocytes/100 WBC Auto (Bl d)Ordered By: La Gentile on 02-02-2023 Lymphocytes/100 WBC (Bld) 26.8 % . [facility] MCH Auto (RBC) [Entitic mass ]Ordered By: La Gentile on 02-02-2023 MCH (RBC) [Entitic mass] 28.0 pg 24.7-34.3 [facility] MCHC Auto (RBC) [Mass/Vol]Or dered By: La Gentile on 02-02-2023 MCHC (RBC) [Mass/Vol] 33.4 g/dL 32.0-35.0 [facility] MCV Auto (RBC) [Entitic vol] Ordered By: La Gentile on 02-02-2023 MCV (RBC) [Entitic vol] 83.7 fL 80-100 [facility] Monocytes Auto (Bld) [#/Vol] Ordered By: La Gentile on 02-02-2023 Monocytes (Bld) [#/Vol] 0.4 10*3/uL 0.0-0.8 [facility] Monocytes/100 WBC Auto (Bld) Ordered By: La Gentile on 02-02-2023 Monocytes/100 WBC (Bld) 6.6 % . [facility] Neutrophils Auto (Bld) [#/Vo l]Ordered By: La Gentile on 02-02-2023 Neutrophils (Bld) [#/Vol] 3.9 10*3/uL 1.8-7.7 [facility] Neutrophils/100 WBC Auto (Bl d)Ordered By: La Gentile on 02-02-2023 Neutrophils/100 WBC (Bld) 64.5 % . [facility] No Panel InformationOrdered By: La Gentile on 02-02-2023 Estimated GFR (CKD-EPI) > 60.0 mL/Min [facility] Creatinine Clearance (Chem N/A [facility] Nucleated erythrocytes [Pres ence] in Blood by Automated countOrdered By: La Gentile on 02-02-2023 Nucleated RBC Auto Ql (Bld) 0.1 /100{WBC} 0-0.5 [facility] Platelet mean volume Auto (B ld) [Entitic vol]Ordered By: La Gentile on 02-02-2023 Platelet mean volume (Bld) [Entitic vol] 9.6 fL 6.3-10.7 [facility] Platelets Auto (Bld) [#/Vol] Ordered By: La Gentile on 02-02-2023 Platelets (Bld) [#/Vol] 215 10*3/uL 150-450 [facility] Potassium [Moles/volume] in Serum or PlasmaOrdered By: La Gentile on 02-02-2023 Potassium [Moles/Vol] 4.3 mmol/L 3.5-5.1 [facility] Protein [Mass/volume] in Ser um or PlasmaOrdered By: La Gentile on 02-02-2023 Protein [Mass/Vol] 6.8 g/dL 6.4-8.9 [facility] RBC Auto (Bld) [#/Vol]Ordere d By: La Gentile on 02-02-2023 RBC (Bld) [#/Vol] 4.58 10*6/uL 3.60-5.00 [facility] Serum or plasma albumin/glob ulin mass ratioOrdered By: La Gentile on 02-02-2023 Albumin/Globulin [Mass ratio] 1.8 {ratio} [facility] Serum or plasma anion gap de terminationOrdered By: La Gentile on 02-02-2023 Anion gap [Moles/Vol] 9.2 mmol/L 6.0-15.0 [facility] Serum or plasma high density lipoprotein (HDL) cholesterol measurementOrdered By: La Gentile on 02-02-2023 Cholesterol in HDL [Mass/Vol] 47 mg/dL 23-92 [facility] Comment on above: HDL CHOL ATP-III CLA SSIFICATION Cardiovascular RiskHDL > or equal to 60 mg/dL LOWHDL < 40 mg/dL HIGH Serum or plasma total choles terol/high density lipoprotein (HDL) cholesterol mass ratOrdered By: La Gentile on 02-02-2023 Cholesterol.total/Ivette sterol in HDL [Mass ratio] 4.4 {ratio} <5.0 [facility] Sodium [Moles/volume] in Ser um or PlasmaOrdered By: La Gentile on 02-02-2023 Sodium [Moles/Vol] 137 mmol/L 136-145 [facility] Thyrotropin [Units/volume] i n Serum or PlasmaOrdered By: La Gentile on 02-02-2023 TSH Qn 2.98 m[IU]/L 0.45-5.33 [facility] Triglyceride [Mass/volume] i n Serum or PlasmaOrdered By: La Gentile on 02-02-2023 Triglyceride [Mass/Vol] 236 mg/dL 0-149 [facility] Comment on above: TRIG ATP III CLASSIF ICATIONTRIG less than 150 mg/dL NormalTRIG 150-199 mg/dL Borderline highTRIG 200-500 mg/dL High TRIG greater than 500 mg/dL Very highStandard traceable to the Center for Disease Conrtrol and Prevention (CDC) test method. Urea nitrogen [Mass/volume] in Serum or PlasmaOrdered By: La Gentile on 02-02-2023 Urea nitrogen [Mass/Vol] 13 mg/dL 12-01 [facility] WBC Auto (Bld) [#/Vol]Ordere d By: La Gentile on 02-02-2023 WBC (Bld) [#/Vol] 6.1 10*3/uL 3.8-11.6 [facility] PAP ACOG PANEL 2: 30 to 65on 08-06-2022 . . Normal [facility] Comment on above: Result Comment: Perf ormed at: WB Performed By: #### [id number] #### [facility] [address] [address] [address] Sohail Carrera Age Gdln ACOG Testing [facility] Comment on above: Performed By: #### [id number] #### [facility] [address] [address] [address] Sohail Carrera DIAGNOSIS: Comment Normal [facility] Comment on above: Result Comment: NEGA TIVE FOR INTRAEPITHELIAL LESION OR MALIGNANCY. Performed at: WB Performed By: #### [id number] #### [facility] [address] [address] [address] Sohail Carrera HPV Aptima Negative Normal Negative [facility] Comment on above: Result Comment: This nucleic acid amplification test detects fourteen high-risk HPV types (16,18,31,33,35,39,45,51,52,56,58,59,66,68) without differentiation. Performed at: =G Performed By: #### [id number] #### [facility] [address] [address] [address] Sohail Carrera HPV Genotype Reflex Comment Normal [facility] Comment on above: Result Comment: Crit eria not met, HPV Genotype not performed. Performed at: WB Performed By: #### [id number] #### [facility] [address] [address] [address] Sohail Carrera Methodology: Comment Normal [facility] Comment on above: Result Comment: This liquid based ThinPrep(R) pap test was screened with the use of an image guided system. Performed at: WB Performed By: #### [id number] #### [facility] [address] [address] [address] Sohail Carrera Note: Comment Normal [facility] Comment on above: Result Comment: The Pap smear is a screening test designed to aid in the detection of premalignant and malignant conditions of the uterine cervix. It is not a diagnostic procedure and should not be used as the sole means of detecting cervical cancer. Both false-positive and false-negative reports do occur. . Performed at: WB Performed By: #### [id number] #### [facility] [address] [address] [address] Sohail Carrera Performed by: Comment Normal [facility] Comment on above: Result Comment: Meena Suggs, Contract Forester (ASCP) Performed at: WB Performed By: #### [id number] #### [facility] [address] [address] [address] Sohail Carrera Specimen adequacy: Comment Normal [facility] Comment on above: Result Comment: Sati sfactory for evaluation. Endocervical and/or squamous metaplastic cells (endocervical component) are present. Performed at: WB Performed By: #### [id number] #### [facility] [address] [address] [address] Sohail Carrera MG MAMM SCREEN 3D UYEN CADon 07-31-2022 MG MAMM SCREEN 3D UYEN CAD Patient: GEOVANNY CONRAD Exam Date: 07/31/2022 : 1980 Gender:F Ordering : DR SKYLAR MOSELEY . Admission #: [id number] Family : Order #: [id number] CLICK HERE TO VIEW EXAM RADIOLOGY REPORT PROCEDURE: MAMMOGRAM SCREENING 3D BILATERAL CAD COMPARISON: None. INDICATIONS: Screening mammography Calculator Name NCI Breast Cancer Risk Assessment Tool 5 Year Breast Cancer Risk 0.80% Lifetime Breast Cancer Risk 13.60% Personal Breast Cancer No Personal Ovarian Cancer No Treatments None Family Cancers Grandmother-maternal with uterine cancer at age 55. LOCATION: [facility] BREAST COMPOSITION: Heterogeneously dense,which may obscure small [...] Alvarez M.D. on 07/31/2022 at 11:52 Normal [facility] Cytology Cervical or vaginal smear or scraping studyon 07-30-2022 [facility] CBC AUTO DIFFon 06-29-2022 BASO # 0.0 103/ul Normal 0.0-0.1 [facility] Comment on above: Performed By: #### C BC #### [facility] [address] [place] [address] Dr. Sohail Carrera Basophils/100 WBC (Bld) 0.5 % Normal 0.2-2.0 [facility] Comment on above: Performed By: #### C BC #### [facility] [address] [place] [address] Dr. Sohail Carrera EO # 0.1 103/ul Normal 0.0-0.7 [facility] Comment on above: Performed By: #### C BC #### [facility] [address] [place] [address] Dr. Sohail Carrera Eosinophils/100 WBC (Bld) 1.0 % Normal 0.9-7.0 [facility] Comment on above: Performed By: #### C BC #### [facility] [address] [place] [address] Dr. Sohail Carrera Erythrocyte distribution width (RBC) [Ratio] 12.6 % Normal 11.0-15.0 [facility] Comment on above: Performed By: #### C BC #### [facility] [address] [place] [address] Dr. Sohail Carrera Hematocrit (Bld) [Volume fraction] 39.0 % Normal 36.0-48.0 [facility] Comment on above: Performed By: #### C BC #### [facility] [address] [place] [address] Dr. Sohail Carrera Hemoglobin (Bld) [Mass/Vol] 13.4 g/dL Normal 12.0-16.0 [facility] Comment on above: Performed By: #### C BC #### [facility] [address] [place] [address] Dr. Sohail Carrera IG # 0.01 10e3/ul Normal 0.00-0.03 [facility] Comment on above: Performed By: #### C BC #### [facility] [address] [place] [address] Dr. Sohail Carrera IG % 0.2 % Normal 0.0-0.5 [facility] Comment on above: Performed By: #### C BC #### [facility] [address] [place] [address] Dr. Sohail Carrera LYMPH # 1.7 103/ul Normal 1.2-3.8 [facility] Comment on above: Performed By: #### C BC #### [facility] [address] [place] [address] Dr. Sohail Carrera Lymphocytes/100 WBC (Bld) 28.4 % Normal 20.5-60.0 [facility] Comment on above: Performed By: #### C BC #### [facility] [address] [place] [address] Dr. Sohail Carrera MANUAL DIFF REQ NO Normal [facility] Comment on above: Performed By: #### C BC #### [facility] [address] [place] [address] Dr. Sohail Carrera MCH (RBC) [Entitic mass] 28.7 pg Normal 26.7-34.0 [facility] Comment on above: Performed By: #### C BC #### [facility] [address] [place] [address] Dr. Sohail Carrera MCHC (RBC) [Mass/Vol] 34.4 g/dL Normal 29.9-35.2 [facility] Comment on above: Performed By: #### C BC #### [facility] [address] [place] [address] Dr. Sohail Carrera MCV (RBC) [Entitic vol] 83.5 fL Normal 81.0-99.0 [facility] Comment on above: Performed By: #### C BC #### [facility] [address] [address] [address] Sohail Carrera MONO # 0.4 103/ul Normal 0.3-0.8 [facility] Comment on above: Performed By: #### C BC #### [facility] [address] [address] [address] Sohail Carrera Monocytes/100 WBC (Bld) 6.5 % Normal 1.7-12.0 [facility] Comment on above: Performed By: #### C BC #### [facility] [address] [address] [address] Sohail Carrera NEUT # 3.7 103/ul Normal 1.4-6.5 [facility] Comment on above: Performed By: #### C BC #### [facility] [address] [place] [address] Dr. Sohail Carrera Neutrophils/100 WBC (Bld) 63.4 % Normal 43.0-75.0 [facility] Comment on above: Performed By: #### C BC #### [facility] [address] [place] [address] Dr. Sohail Carrera Platelet mean volume (Bld) [Entitic vol] 11.0 fL Normal 9.5-13.5 [facility] Comment on above: Performed By: #### C BC #### [facility] [address] [place] [address] Dr. Sohail Carrera PLT 252 103/ul Normal 150-450 [facility] Comment on above: Performed By: #### C BC #### [facility] [address] [place] [address] Dr. Sohail Carrera RBC 4.67 106/ul Normal 4.20-5.40 [facility] Comment on above: Performed By: #### C BC #### [facility] [address] [place] [address] Dr. Sohail Carrera WBC 5.9 103/ul Normal 4.0-11.0 [facility] Comment on above: Performed By: #### C BC #### [facility] [address] [place] [address] Dr. Sohail Carrera ER URINE PROFILEon 3 Bilirubin Ql (U) Negative Normal NEGATIVE [facility] Comment on above: Performed By: #### P REGU, ERUR #### [facility] [address] [place] [address] Dr. Sohail Carrera Clarity (U) CLEAR Normal CLEAR [facility] Comment on above: Performed By: #### P REGU, ERUR #### [facility] [address] [place] [address] Dr. Sohail Carrera Color (U) LT. YELLOW Normal YELLOW [facility] Comment on above: Performed By: #### P REGU, ERUR #### [facility] [address] [place] [address] Dr. Sohail PATEL A micrscopic examination will be performed if indicated. Normal [facility] Comment on above: Performed By: #### P REGU, ERUR #### [facility] [address] [place] [address] Dr. Sohail Carrera Glucose Ql (U) Negative Normal NEGATIVE [facility] Comment on above: Performed By: #### P REGU, ERUR #### [facility] [address] [place] [address] Dr. Sohail Carrera Hemoglobin Ql (U) Negative Normal NEGATIVE [facility] Comment on above: Performed By: #### P REGU, ERUR #### [facility] [address] [place] [address] Dr. Sohail Carrera Ketones Ql (U) Negative Normal NEGATIVE [facility] Comment on above: Performed By: #### P REGU, ERUR #### [facility] [address] [place] [address] Dr. Sohail Carrera LEUKOCYTES Negative Normal NEGATIVE [facility] Comment on above: Performed By: #### P REGU, ERUR #### [facility] [address] [place] [address] Dr. Sohail Carrera Nitrite Ql (U) Negative Normal NEGATIVE [facility] Comment on above: Performed By: #### P REGU, ERUR #### [facility] [address] [place] [address] Dr. Sohail Carrera pH (U) 6.0 [pH] Normal 5-9 [facility] Comment on above: Performed By: #### P REGU, ERUR #### [facility] [address] [place] [address] Dr. Sohail Carrera SPEC GRAVITY <=1.005 Abnormal 1.005-<=1.02 5 [facility] Comment on above: Performed By: #### P REGU, ERUR #### [facility] [address] [place] [address] Dr. Sohail Carrera UA PROTEIN Negative Normal NEGATIVE/ TRACE [facility] Comment on above: Performed By: #### P REGU, ERUR #### [facility] [address] [place] [address] Dr. Sohail Carrera UR MICRO IND NOT INDICATED Normal [facility] Comment on above: Performed By: #### P REGU, ERUR #### [facility] [address] [place] [address] Dr. Sohail Carrera Urobilinogen Qn (U) 0.2 {Rubi'U}/dL Normal 0.2 - 1. 0 [facility] Comment on above: Performed By: #### P REGU, ERUR #### [facility] [address] [place] [address] Dr. Sohail Carrera LIPASEon 06-29-2022 Lipase [Catalytic activity/Vol] 122.0 U/L Normal 73.0-393.0 [facility] Comment on above: Performed By: #### L IPA, CMP #### [facility] [address] [place] [address] Dr. Sohail Carrera URon 06-29-2022 , QUAL Negative Normal NEGATIVE [facility] Comment on above: Performed By: #### P REGU, ERUR #### [facility] [address] [place] [address] Dr. Sohail Carrera PROF 14(COMP METB)on 023 Albumin [Mass/Vol] 4.0 g/dL Normal 3.4-5.0 [facility] Comment on above: Performed By: #### L IPA, CMP #### [facility] [address] [place] [address] Dr. Sohail Carrera Albumin/Globulin [Mass ratio] 1.1 {ratio} Normal [facility] Comment on above: Performed By: #### L IPA, CMP #### [facility] [address] [address] [address] Sohail Carrera ALP [Catalytic activity/Vol] 69 U/L Normal 46-116 [facility] Comment on above: Performed By: #### L IPA, CMP #### [facility] [address] [address] [address] Sohail Carrera ALT [Catalytic activity/Vol] 22 U/L Normal 14-59 [facility] Comment on above: Performed By: #### L IPA, CMP #### [facility] [address] [address] [address] Sohail Carrera Anion gap [Moles/Vol] 11.4 mmol/L Normal [facility] Comment on above: Performed By: #### L IPA, CMP #### [facility] [address] [place] [address] Dr. Sohail Carrera AST [Catalytic activity/Vol] 15 U/L Normal 15-37 [facility] Comment on above: Performed By: #### L IPA, CMP #### [facility] [address] [address] [address] Sohail Carrera Bilirubin [Mass/Vol] 0.3 mg/dL Normal 0.2-1.0 [facility] Comment on above: Performed By: #### L IPA, CMP #### [facility] [address] [address] [address] Sohail Carrera Calcium [Mass/Vol] 9.4 mg/dL Normal 8.5-10.1 [facility] Comment on above: Performed By: #### L IPA, CMP #### [facility] [address] [address] [address] Sohail Carrera Chloride [Moles/Vol] 105 mmol/L Normal 98-107 [facility] Comment on above: Performed By: #### L IPA, CMP #### [facility] [address] [address] [address] Sohail Carrera CO2 [Moles/Vol] 26.0 mmol/L Normal 21.0-32.0 [facility] Comment on above: Performed By: #### L IPA, CMP #### [facility] [address] [address] [address] Sohail Carrera Creatinine [Mass/Vol] 0.84 mg/dL Normal 0.55-1.02 [facility] Comment on above: Performed By: #### L IPA, CMP #### [facility] [address] [address] [address] Sohail Carrera EGFR-AF MARTINIQUAIS >60 Normal >=60 [facility] Comment on above: Performed By: #### L IPA, CMP #### [facility] [address] [address] [address] Sohail Carrera EGFR-NON AF MARTINIQUAIS >60 Normal >=60 [facility] Comment on above: Performed By: #### L IPA, CMP #### [facility] [address] [address] [address] Sohail Carrera Globulin (S) [Mass/Vol] 3.6 g/dL Normal [facility] Comment on above: Performed By: #### L IPA, CMP #### [facility] [address] [address] [address] Sohail Carrera Glucose [Mass/Vol] 105 mg/dL Normal 74-106 [facility] Comment on above: Performed By: #### L IPA, CMP #### [facility] [address] [address] [address] Sohail Carrera Potassium [Moles/Vol] 4.4 mmol/L Normal 3.5-5.1 [facility] Comment on above: Performed By: #### L IPA, CMP #### [facility] [address] [address] [address] Sohail Carrera Protein [Mass/Vol] 7.6 g/dL Normal 6.4-8.2 [facility] Comment on above: Performed By: #### L IPA, CMP #### [facility] [address] [address] [address] Sohail Carrera Sodium [Moles/Vol] 138 mmol/L Normal 136-145 [facility] Comment on above: Performed By: #### L IPA, CMP #### [facility] [address] [address] [address] Sohail Carrera Urea nitrogen [Mass/Vol] 10.0 mg/dL Normal 7.0-18.0 [facility] Comment on above: Performed By: #### L IPA, CMP #### [facility] [address] [address] [address] Sohail Carrera Urea nitrogen/Creatinine [Mass ratio] 11.9 mg/mg Normal [facility] Comment on above: Performed By: #### L IPA, CMP #### [facility] [address] [address] [address] Sohail Carrera XR LSPINE 2_3 VIEWSon [...] SRAVANTHI CARRERA Date: 2022-06-29 11:44 Normal [facility] Albumin [Mass/volume] in Ser um or PlasmaOrdered By: La Gentile on 02-16-2022 Albumin [Mass/Vol] 3.9 g/dL 3.2-5.5 [facility] Basophils Auto (Bld) [#/Vol] Ordered By: La Gentile on 02-16-2022 Basophils (Bld) [#/Vol] 0.0 10*3/uL 0.0-0.2 [facility] Basophils/100 WBC Auto (Bld) Ordered By: La Gentile on 02-16-2022 Basophils/100 WBC (Bld) 0.5 % . [facility] Blood hemoglobin measurement (mass/volume)Ordered By: La Gentile on 02-16-2022 Hemoglobin (Bld) [Mass/Vol] 13.1 g/dL 11.8-15.4 [facility] Blood leukocytes automated c ount (number/volume)Ordered By: La Gentile on 02-16-2022 WBC (Bld) [#/Vol] 6.1 10*3/uL 4.5-11.0 [facility] Cholesterol [Mass/volume] in Serum or PlasmaOrdered By: La Gentile on 02-16-2022 Cholesterol [Mass/Vol] 212 mg/dL 140-200 [facility] Comment on above: Chol less than 200 m g/dl low riskChol 201-239 mg/dl borderline riskChol 240 mg/dl and greater high risk Cholesterol in LDL Calc [Mas s/Vol]Ordered By: La Gentile on 02-16-2022 Cholesterol in LDL [Mass/Vol] 126 mg/dL 0-100 [facility] Comment on above: LDL ATP III CLASSIFI CATIONLDL less than 100 mg/dL OptimalLDL 100-129 mg/dL Near or above optimalLDL 130-159 mg/dL Borderline highLDL 160-189 mg/dL HighLDL greater than 189 mg/dL Very high Cholesterol in VLDL Calc [Ma ss/Vol]Ordered By: La Gentile on 02-16-2022 Cholesterol in VLDL [Mass/Vol] 45 mg/dL [facility] Creatinine and Glomerular fi ltration rate.predicted panel (S/P/Bld)Ordered By: La Gentile on 02-16-2022 Creatinine [Mass/Vol] 0.90 mg/dL 0.44-1.03 [facility] Eosinophils Auto (Bld) [#/Vo l]Ordered By: La Gentile on 02-16-2022 Eosinophils (Bld) [#/Vol] 0.1 10*3/uL 0.0-0.45 [facility] Eosinophils/100 WBC Auto (Bl d)Ordered By: La Gentile on 02-16-2022 Eosinophils/100 WBC (Bld) 1.1 % . [facility] Erythrocyte distribution wid th Auto (RBC) [Ratio]Ordered By: La Gentile on 02-16-2022 Erythrocyte distribution width (RBC) [Ratio] 13.2 % 11.9-15.3 [facility] Estimated glomerular filtrat ion rate (GFR) non- AmericanOrdered By: La Gentile on 02-16-2022 GFR/1.73 sq M.predicted among non-blacks MDRD (S/P/Bld) [Vol rate/Area] > 60 mL/Min [facility] Globulin Calc (S) [Mass/Vol] Ordered By: La Gentile on 02-16-2022 Globulin (S) [Mass/Vol] 3.3 g/dL F [facility] Hematocrit Auto (Bld) [Volum e fraction]Ordered By: La Gentile on 02-16-2022 Hematocrit (Bld) [Volume fraction] 39.8 % 34.0-46.4 [facility] Laboratory - Hematology and Cell countsOrdered By: La Gentile on 02-16-2022 Nucleated RBC/100 WBC (Bld) [Ratio] 0.0 % 0-0.5 [facility] Lymphocytes Auto (Bld) [#/Vo l]Ordered By: La Gentile on 02-16-2022 Lymphocytes (Bld) [#/Vol] 1.4 10*3/uL 1.00-4.8 [facility] Lymphocytes/100 WBC Auto (Bl d)Ordered By: La Gentile on 02-16-2022 Lymphocytes/100 WBC (Bld) 23.4 % . [facility] MCH Auto (RBC) [Entitic mass ]Ordered By: La Gentile on 02-16-2022 MCH (RBC) [Entitic mass] 28.1 pg 24.7-34.3 [facility] MCHC Auto (RBC) [Mass/Vol]Or dered By: La Gentile on 02-16-2022 MCHC (RBC) [Mass/Vol] 33.0 g/dL 32.0-35.0 [facility] MCV Auto (RBC) [Entitic vol] Ordered By: La Gentile on 02-16-2022 MCV (RBC) [Entitic vol] 85.1 fL 80-100 [facility] Monocytes Auto (Bld) [#/Vol] Ordered By: La Gentile on 02-16-2022 Monocytes (Bld) [#/Vol] 0.3 10*3/uL 0.0-0.8 [facility] Monocytes/100 WBC Auto (Bld) Ordered By: La Gentile on 02-16-2022 Monocytes/100 WBC (Bld) 5.2 % . [facility] Neutrophils Auto (Bld) [#/Vo l]Ordered By: La Gentile on 02-16-2022 Neutrophils (Bld) [#/Vol] 4.3 10*3/uL 1.8-7.7 [facility] Neutrophils/100 WBC Auto (Bl d)Ordered By: La Gentile on 02-16-2022 Neutrophils/100 WBC (Bld) 69.8 % . [facility] No Panel InformationOrdered By: La Gentile on 02-16-2022 Estimated GFR () > 60 mL/Min [facility] Comment on above: GFR estimated refere nce range: According to KDOQI guidelines, <60 ml/min/1.73m2 is sufficient to diagnose a patient with chronic kidney disease. Pharmacy Creatinine Clearance (Chem N/A [facility] Platelet mean volume Auto (B ld) [Entitic vol]Ordered By: La Gentile on 02-16-2022 Platelet mean volume (Bld) [Entitic vol] 10.3 fL 6.3-10.7 [facility] Platelets Auto (Bld) [#/Vol] Ordered By: La Gentile on 02-16-2022 Platelets (Bld) [#/Vol] 254 10*3/uL 150-450 [facility] [place] Protein [Mass/volume] in Ser um or PlasmaOrdered By: La Gentile on 02-16-2022 Protein [Mass/Vol] 7.2 g/dL 6.1-7.9 [facility] RBC Auto (Bld) [#/Vol]Ordere d By: La Gentile on 02-16-2022 RBC (Bld) [#/Vol] 4.67 10*6/uL 3.60-5.00 [facility] Serum or plasma alanine sesay otransferase measurement without P-5'-P (enzymatic activiOrdered By: La Gentile on 02-16-2022 ALT No additional P-5'-P [Catalytic activity/Vol] 20 U/L 10-60 [facility] Serum or plasma albumin/glob ulin mass ratioOrdered By: La Gentile on 02-16-2022 Albumin/Globulin [Mass ratio] 1.2 {ratio} [facility] [place] Serum or plasma alkaline anton sphatase measurement (enzymatic activity/volume)Ordered By: La Gentile on 02-16-2022 ALP [Catalytic activity/Vol] 59 U/L 32-92 [facility] [place] Serum or plasma anion gap de terminationOrdered By: La Gentile on 02-16-2022 Anion gap [Moles/Vol] 11.6 mmol/L 6.0-15.0 [facility] Serum or plasma aspartate am inotransferase measurement (enzymatic activity/volume)Ordered By: La Gentile on 02-16-2022 AST [Catalytic activity/Vol] 20 U/L 10-42 [facility] [place] Serum or plasma calcium alfonso urement (mass/volume)Ordered By: La Gentile on 02-16-2022 Calcium [Mass/Vol] 9.2 mg/dL 8.2-10.2 [facility] Serum or plasma chloride berna surement (moles/volume)Ordered By: La Gentile on 02-16-2022 Chloride [Moles/Vol] 103 mmol/L 95-114 [facility] Serum or plasma glucose alfonso urement (mass/volume)Ordered By: La Gentile on 02-16-2022 Glucose [Mass/Vol] 97 mg/dL 70-100 [facility] Comment on above: ADA recommended refe rence rangeRandom Glucose Reference Range is dependent on time and content of last meal. Glucose of more than 200 mg/dL in a nonstressed, ambulatory subject supports the diagnosis of Diabetes Mellitus. Serum or plasma high density lipoprotein (HDL) cholesterol measurementOrdered By: La Gentile on 10-10-2022 Cholesterol in HDL [Mass/Vol] 41 mg/dL 35-85 [facility] [place] Comment on above: HDL CHOL ATP-III CLA SSIFICATION Cardiovascular RiskHDL > or equal to 60 mg/dL LOWHDL < 40 mg/dL HIGH Serum or plasma potassium me asurement (moles/volume)Ordered By: La Gentile on 02-16-2022 Potassium [Moles/Vol] 3.8 mmol/L 3.5-5.1 [facility] Serum or plasma sodium measu rement (moles/volume)Ordered By: La Gentile on 02-16-2022 Sodium [Moles/Vol] 136 mmol/L 136-146 [facility] Serum or plasma total biliru bin measurement (mass/volume)Ordered By: La Gentile on 02-16-2022 Bilirubin [Mass/Vol] 0.9 mg/dL 0.3-1.2 [facility] Serum or plasma total carbon dioxide measurement (moles/volume)Ordered By: La Gentile on 02-16-2022 CO2 [Moles/Vol] 25.2 mmol/L 22.0-30.0 [facility] Serum or plasma total choles terol/high density lipoprotein (HDL) cholesterol mass ratOrdered By: La Gentile on 02-16-2022 Cholesterol.total/Ivette sterol in HDL [Mass ratio] 5.2 {ratio} <5.0 [facility] [place] Serum or plasma urea nitroge n measurement (mass/volume)Ordered By: La Gentile on 02-16-2022 Urea nitrogen [Mass/Vol] 12 mg/dL 9-23 [facility] [place] TSH DL <= 0.005 mIU/L QnOrde red By: La Gentile on 02-16-2022 TSH Qn 3.12 m[IU]/L 0.45-5.33 [facility] [place] Triglyceride [Mass/volume] i n Serum or PlasmaOrdered By: La Gentile on 02-16-2022 Triglyceride [Mass/Vol] 227 mg/dL 35-149 [facility] Comment on above: TRIG ATP III CLASSIF ICATIONTRIG less than 150 mg/dL NormalTRIG 150-199 mg/dL Borderline highTRIG 200-500 mg/dL High TRIG greater than 500 mg/dL Very highStandard traceable to the Center for Disease Conrtrol and Prevention (CDC) test method. COVID + FLU Quick Testingon 09-18-2021 SARS-CoV-2 (COVID-19) RNA JING+probe Ql (Unsp spec) Negative [employer] Other COVID + FLU Quick Testing Negative [employer] Other COVID + FLU Quick Testingon 05-19-2021 SARS-CoV-2 (COVID-19) RNA JING+probe Ql (Unsp spec) Negative [employer] Other COVID + FLU Quick Testing Negative [employer] Other Complete Blood Count Auto Di ffon 05-19-2021 Basophils (Bld) [#/Vol] 0.1 10*3/uL 0.0-0.2 [employer] Other Basophils/100 WBC (Bld) 1.0 % . [facility] [employer] Other Eosinophils (Bld) [#/Vol] 0.0 10*3/uL 0.0-0.45 [employer] Other Eosinophils/100 WBC (Bld) 0.5 % . [employer] Other Erythrocyte distribution width (RBC) [Ratio] 13.3 % 11.9-15.3 [employer] Other Hematocrit (Bld) [Volume fraction] 41.2 % 34.0-46.4 [employer] Other Hemoglobin (Bld) [Mass/Vol] 13.9 g/dL 11.8-15.4 [employer] Other Lymphocytes (Bld) [#/Vol] 2.7 10*3/uL 1.00-4.8 [employer] Other Lymphocytes/100 WBC (Bld) 30.5 % . [employer] Other MCH (RBC) [Entitic mass] 28.6 pg 24.7-34.3 [employer] Other MCH (RBC) [Entitic mass] 33.8 pg 32.0-35.0 [employer] Other MCV (RBC) [Entitic vol] 84.5 fL 80-100 [employer] Other Monocytes (Bld) [#/Vol] 0.7 10*3/uL 0.0-0.8 [employer] Other Monocytes/100 WBC (Bld) 7.5 % . [employer] Other Neutrophils (Bld) [#/Vol] 5.3 10*3/uL 1.8-7.7 [employer] Other Neutrophils/100 WBC (Bld) 60.5 % . [employer] Other Platelet mean volume (Bld) [Entitic vol] 9.4 fL 6.3-10.7 [employer] Other Platelets (Bld) [#/Vol] 303 10*3/uL 150-450 [employer] Other RBC (Bld) [#/Vol] 4.87 10*6/uL 3.60-5.00 [employer] Other WBC (Bld) [#/Vol] 8.8 10*3/uL 3.8-11.6 [employer] Other Complete Blood Count Auto Diff 8.8 4.5-11.0 [employer] Other Complete Blood Count Auto Diff 0.1 0-0.5 [employer] Other Comprehensive Metabolic Pane kenya 05-19-2021 Albumin [Mass/Vol] 4.3 g/dL 3.2-5.5 [employer] Other Albumin/Globulin [Mass ratio] 1.3 {ratio} [facility] [employer] Other ALP [Catalytic activity/Vol] 51 U/L 32-92 [facility] [employer] Other ALT [Catalytic activity/Vol] 17 U/L 10-60 [facility] [employer] Other AST [Catalytic activity/Vol] 14 U/L 10-42 [facility] [employer] Other Bilirubin [Mass/Vol] 0.9 mg/dL 0.3-1.2 [facility] [employer] Other Calcium [Mass/Vol] 9.5 mg/dL 8.2-10.2 [facility] [employer] Other Chloride [Moles/Vol] 102 mmol/L 95-114 [facility] [employer] Other CO2 [Moles/Vol] 27.5 mmol/L 22.0-30.0 [facility] [employer] Other Creatinine [Mass/Vol] 0.84 mg/dL 0.44-1.03 [facility] [employer] Other Glucose [Mass/Vol] 71 mg/dL 70-100 [facility] [employer] Other Potassium [Moles/Vol] 3.8 mmol/L 3.5-5.1 [facility] [employer] Other Protein [Mass/Vol] 7.7 g/dL 6.1-7.9 [facility] [employer] Other Sodium [Moles/Vol] 137 mmol/L 136-146 [facility] [employer] Other Urea nitrogen [Mass/Vol] 10 mg/dL 9-23 [facility] [employer] Other Comprehensive Metabolic Panel > 60 [facility] [employer] Other Comprehensive Metabolic Panel 3.4 [facility] [employer] Other Lipid Panelon 05-19-2021 Cholesterol [Mass/Vol] 306 mg/dL 140-200 No [facility] [employer] Other Cholesterol in HDL [Mass/Vol] 53 mg/dL 35-85 [employer] Other Cholesterol in LDL Elph Qn 219 0-100 [facility] [employer] Other Cholesterol.total/Ivette sterol in HDL [Mass ratio] 5.8 {ratio} <5.0 [facility] [employer] Other Lipid Panel 169 35-149 [employer] Other Lipid Panel 33 [employer] Other Thyroid Stimulating Hormoneo n 05-19-2021 TSH Qn 3.06 m[IU]/L 0.45-5.33 [employer] Other XR chest 2V*on 05-19-2021 XR chest 2V* [facility] [employer] Other XR chest 2V* [facility] [employer] Other XR chest 2V* 1[facility] [employer] Other XR chest 2V* [place] [address] [facility] [employer] Other XR chest 2V* XRay Report [employer] Other XR chest 2V* Signed [employer] Other XR chest 2V* Patient: Geovanny Conrad MR#: [id number] [facility] [employer] Other XR chest 2V* 322 [employer] Other XR chest 2V* : 1980 Acct:[id number] [employer] Other XR chest 2V* Age/Sex: 40 / F ADM Date: 05/19/21 [employer] Other XR chest 2V* Loc: Room: Type: REG CLI [employer] Other XR chest 2V* Attending Dr: La Gentile DO [employer] Other XR chest 2V* Ordering Provider: La Gentile DO [employer] Other XR chest 2V* Date of Service: 05/19/21 [employer] Other XR chest 2V* XR/XR chest 2V*: Cough [employer] Other XR chest 2V* Copies to: La Gentile DO [employer] Other XR chest 2V* XR chest 2V* 05/19/2021 9:58 AM [employer] Other XR chest 2V* SIGNS AND SYMPTOMS: Cough, congestion [employer] Other XR chest 2V* PROTOCOL: Frontal an d lateral radiographs of the chest [employer] Other XR chest 2V* COMPARISON: 01/20/2016 [employer] Other XR chest 2V* FINDINGS: x[employer]ai Other XR chest 2V* The trachea is midline. The heart and mediastinal structures are within normal limits. The lung [employer] Other XR chest 2V* parenchyma is clear. The bony thorax is intact. [employer] Other XR chest 2V* XR/XR chest 2V* [employer] Other XR chest 2V* IMPRESSION: [employer] Other XR chest 2V* No acute cardiopulmonary pathology. [employer] Other XR chest 2V* Impression dictated by: Suman Feliz M.D.05/19/2021 11:20 AM [employer] Other XR chest 2V* Dictation Location: [facility]04 [facility] Other XR chest 2V* Transcribed By: PWS 05/19/21 1120 [employer] Other XR chest 2V* Dictated By: Suman Feliz II, MD 05/19/21 1119 [employer] Other XR chest 2V* Signed By: [employer] Other XR chest 2V* 05/19/21 1120 [email or web address] [facility] [employer] Other Vital Signs Date Time Vital Sign Value Performing Clinician Facility 07-03-2024 10:46-0500 Body mass index (BMI) [Ratio] 33.62 kg/m2 Skylar Lorelei DO Work Phone: [facility] 07-03-2024 10:46-0500 Body weight 86.09 kg Skylar Lorelei DO Work Phone: [facility] 07-03-2024 10:46-0500 Diastolic blood pressure 90 mm[Hg] Skylar Lorelei DO Work Phone: [facility] 07-03-2024 10:46-0500 Systolic blood pressure 126 mm[Hg] Skylar Lorelei DO Work Phone: [facility] 06-07-2024 16:06-0500 Body mass index (BMI) [Ratio] 34.01 kg/m2 Skylar Lorelei DO Work Phone: [facility] 06-07-2024 16:06-0500 Body weight 87.09 kg Skylar Lorelei DO Work Phone: [facility] 06-07-2024 16:06-0500 Diastolic blood pressure 80 mm[Hg] Skylar Lorelei DO Work Phone: [facility] 06-07-2024 16:06-0500 Systolic blood pressure 130 mm[Hg] Skylar Lorelei DO Work Phone: [facility] 04-27-2024 10:34-0500 Body mass index (BMI) [Ratio] 34.37 kg/m2 Skylar Lorelei DO Work Phone: [facility] 04-27-2024 10:34-0500 Body weight 88 kg Skylar Lorelei DO Work Phone: [facility] 04-27-2024 10:34-0500 Diastolic blood pressure 72 mm[Hg] Skylar Lorelei DO Work Phone: [facility] 04-27-2024 10:34-0500 Systolic blood pressure 118 mm[Hg] Skylar Lorelei DO Work Phone: [facility] 10-21-2023 09:31-0400 Body height 162.56 cm DO La Kuns Work Phone: [facility] 10-21-2023 09:31-0400 Body mass index (BMI) [Ratio] 32.9 kg/m2 DO La Kuns Work Phone: [facility] 10-21-2023 09:31-0400 Body weight 87.08 kg DO La Kuns Work Phone: [facility] 10-21-2023 09:31-0400 Diastolic blood pressure 70 mm[Hg] DO La Kuns Work Phone: [facility] 10-21-2023 09:31-0400 Heart rate 81 /min DO La Kuns Work Phone: [facility] 10-21-2023 09:31-0400 Respiratory rate 18 /min DO La Kuns Work Phone: [facility] 10-21-2023 09:31-0400 SaO2% (BldA) [Mass fraction] 96 % DO La Kuns Work Phone: [facility] 10-21-2023 09:31-0400 Systolic blood pressure 122 mm[Hg] DO La Kuns Work Phone: [facility] [place] 02-04-2023 09:15-0400 Body height 162.56 cm La Kuns Other [employer] Other 02-04-2023 09:15-0400 Body mass index (BMI) [Ratio] 32.68 kg/m2 La Kuns Other [employer] Other 02-04-2023 09:15-0400 Body weight 86.37 kg La Kuns Other [employer] Other 02-04-2023 09:15-0400 Diastolic blood pressure 70 mm[Hg] La Kuns Other [employer] Other 02-04-2023 09:15-0400 Respiratory rate 18 /min La Kuns Other [employer] Other 02-04-2023 09:15-0400 SaO2% (BldA) [Mass fraction] 96 % La Kuns Other [employer] Other 02-04-2023 09:15-0400 Systolic blood pressure 112 mm[Hg] La Kuns Other [employer] Other 12-24-2022 12:45-0400 Body height 162.56 cm La Kuns Other [employer] Other 12-24-2022 12:45-0400 Body mass index (BMI) [Ratio] 32.61 kg/m2 La Kuns Other [employer] Other 12-24-2022 12:45-0400 Body weight 86.18 kg La Kuns Other [employer] Other 12-24-2022 12:45-0400 Diastolic blood pressure 64 mm[Hg] La Kuns Other [employer] Other 12-24-2022 12:45-0400 Respiratory rate 18 /min La Kuns Other [employer] Other 12-24-2022 12:45-0400 SaO2% (BldA) [Mass fraction] 99 % La Kuns Other [employer] Other 12-24-2022 12:45-0400 Systolic blood pressure 110 mm[Hg] La Kuns Other [employer] Other 07-31-2022 13:45-0400 Body height 162.56 cm La Kuns Other [employer] Other 07-31-2022 13:45-0400 Body mass index (BMI) [Ratio] 32.95 kg/m2 La Kuns Other [employer] Other 07-31-2022 13:45-0400 Body weight 87.09 kg La Kuns Other [employer] Other 07-31-2022 13:45-0400 Diastolic blood pressure 62 mm[Hg] La Kuns Other [employer] Other 07-31-2022 13:45-0400 Respiratory rate 18 /min La Kuns Other [employer] Other 07-31-2022 13:45-0400 SaO2% (BldA) [Mass fraction] 97 % La Kuns Other [employer] Other 07-31-2022 13:45-0400 Systolic blood pressure 102 mm[Hg] La [employer] Other [employer] Other 07-16-2022 09:40-0500 Body temperature 98.6 [degF] DO La Kuns Work Phone: [facility] 07-16-2022 09:40-0500 Diastolic blood pressure 60 mm[Hg] DO La Kuns Work Phone: [facility] 07-16-2022 09:40-0500 Heart rate 84 /min DO La Kuns Work Phone: [facility] 07-16-2022 09:40-0500 Respiratory rate 18 /min DO La Kuns Work Phone: [facility] 07-16-2022 09:40-0500 SaO2% (BldA) [Mass fraction] 9 % DO La Kuns Work Phone: [facility] 07-16-2022 09:40-0500 Systolic blood pressure 129 mm[Hg] DO La Kuns Work Phone: [facility] 07-16-2022 08:33-0500 Body height 160.02 cm DO La Kuns Work Phone: [facility] 07-16-2022 08:33-0500 Body weight 85.85 kg DO La Kuns Work Phone: [facility] 07-07-2022 12:45-0500 Body height 162.56 cm La [employer] Other [employer] Other 07-07-2022 12:45-0500 Body mass index (BMI) [Ratio] 32.95 kg/m2 La Kuns Other [employer] Other 07-07-2022 12:45-0500 Body weight 87.09 kg La Kuns Other [employer] Other 07-07-2022 12:45-0500 Diastolic blood pressure 74 mm[Hg] La Kuns Other [employer] Other 07-07-2022 12:45-0500 Respiratory rate 16 /min La Kuns Other [employer] Other 07-07-2022 12:45-0500 SaO2% (BldA) [Mass fraction] 96 % La Kuns Other [employer] Other 07-07-2022 12:45-0500 Systolic blood pressure 128 mm[Hg] La Kuns Other [employer] Other 05-29-2021 09:15-0500 Body height 162.56 cm La Kuns Other [employer] Other 05-29-2021 09:15-0500 Body mass index (BMI) [Ratio] 32.68 kg/m2 La Kuns Other [employer] Other 05-29-2021 09:15-0500 Body weight 86.37 kg La Kuns Other [employer] Other 05-29-2021 09:15-0500 Diastolic blood pressure 76 mm[Hg] La Kuns Other [employer] Other 05-29-2021 09:15-0500 Respiratory rate 16 /min La Kuns Other [employer] Other 05-29-2021 09:15-0500 SaO2% (BldA) [Mass fraction] 97 % La Kuns Other [employer] Other 05-29-2021 09:15-0500 Systolic blood pressure 120 mm[Hg] La Kuns Other [employer] Other 05-19-2021 09:30-0500 Body height 162.56 cm La Kuns Other [employer] Other 05-19-2021 09:30-0500 Body mass index (BMI) [Ratio] 30.89 kg/m2 La Kuns Other [employer] Other 05-19-2021 09:30-0500 Body weight 81.65 kg La Kuns Other [employer] Other 05-19-2021 09:30-0500 Diastolic blood pressure 80 mm[Hg] La Kuns Other [employer] Other 05-19-2021 09:30-0500 Respiratory rate 17 /min La Kuns Other [employer] Other 05-19-2021 09:30-0500 SaO2% (BldA) [Mass fraction] 98 % La Kuns Other [employer] Other 05-19-2021 09:30-0500 Systolic blood pressure 122 mm[Hg] La Kuns Other [employer] Other Encounters Encounter Date Encounter Type Care Provider Facility Start: 07-03-2024 End: 07-03-2024 Office outpatient visit 15 minutes Skylar Moseley DO Work Phone: [facility] Comment on above: Pre-op examination; Request for sterilization; Menorrhagia with regular cycle; Abnormal uterine bleeding; Pelvic pain in female; Cervical stenosis (uterine cervix) Start: 07-03-2024 End: 07-03-2024 Preprocedural examination done Skylar Lorelei DO Work Phone: [facility] Start: 07-03-2024 End: 07-03-2024 ambulatory SKYLAR LORELEI Not Available Start: 06-22-2024 Patient encounter status La Kuns DO Work Phone: [facility] Start: 06-22-2024 End: 06-22-2024 ambulatory La Kuns DO Work Phone: [facility] Work Phone: Start: 06-22-2024 End: 06-22-2024 Encounter for general adult medical examination without abnormal findings La Kuns DO Work Phone: [facility] Start: 06-22-2024 End: 06-22-2024 Patient encounter procedure La Kuns DO Work Phone: [facility] [place] Work Phone: Start: 06-20-2024 End: 06-20-2024 Patient encounter procedure La Kuns DO Work Phone: [facility] [place] Work Phone: Start: 06-20-2024 End: 06-20-2024 ambulatory La Kuns DO Work Phone: [facility] Work Phone: Start: 06-07-2024 End: 06-07-2024 Patient encounter procedure Skylar Lorelei DO Work Phone: [facility] Comment on above: Encounter for IUD re moval; Encounter for IUD insertion Start: 06-07-2024 End: 06-07-2024 ambulatory SKYLAR LORELEI Not Available Start: 04-27-2024 End: 12-19-2024 Bamboo flowsheet Skylar Lorelei DO Work Phone: [facility] Start: 04-27-2024 End: 05-05-2024 Bamboo flowsheet Skylar Lorelei DO Work Phone: [facility] Start: 04-27-2024 End: 05-05-2024 Clinisync Result Encounter Skylar Lorelei DO Work Phone: [facility] Unsolicited Start: 04-27-2024 End: 04-28-2024 External Result Encounter Skylar Lorelei DO Work Phone: [facility] Unsolicited Start: 04-27-2024 Non-patient / Non-visit La Kuns DO Work Phone: [facility] Work Phone: Start: 04-27-2024 End: 04-27-2024 Patient encounter procedure Skylar Lorelei DO Work Phone: [facility] Start: 04-27-2024 End: 04-27-2024 Periodic preventive med est patient 40-64yrs Skylar Lorelei DO Work Phone: [facility] Comment on above: Well woman exam with routine gynecological exam; Vaginal itching Start: 04-27-2024 End: 04-27-2024 ambulatory SKYLAR LORELEI Not Available Start: 04-10-2024 Non-patient / Non-visit La Kuns DO [facility] Work Phone: Start: 10-21-2023 End: 10-21-2023 ambulatory DO La Kuns Work Phone: [facility] Work Phone: Start: 10-21-2023 End: 10-21-2023 Patient encounter procedure DO La Kuns Work Phone: [facility] Work Phone: Start: 10-20-2023 End: 10-20-2023 ambulatory DO La Kuns Work Phone: [facility] Work Phone: Start: 10-20-2023 End: 10-20-2023 Patient encounter procedure DO La Kuns Work Phone: [facility] [place] Work Phone: Start: 02-04-2023 End: 02-04-2023 ambulatory La Kuns Other [employer] Other Start: 02-04-2023 Office outpatient vi sit 25 minutes La Kuns [facility] Start: 02-02-2023 End: 02-02-2023 ambulatory DO La Kuns Work Phone: [facility] Work Phone: Start: 02-02-2023 End: 02-02-2023 Patient encounter procedure DO La Kuns Work Phone: [facility] [place] Work Phone: Start: 01-15-2023 End: 01-15-2023 ambulatory DO La Kuns Work Phone: [facility] Work Phone: Start: 01-15-2023 End: 01-15-2023 Patient encounter procedure DO La Kuns Work Phone: [facility] [place] Work Phone: Start: 12-24-2022 End: 12-24-2022 ambulatory La Kuns Other [employer] Other Start: 12-24-2022 Office outpatient vi sit 25 minutes La Kuns [facility] Start: 10-20-2022 End: 10-20-2022 ambulatory DO La Kuns Work Phone: [facility] Work Phone: Start: 10-20-2022 End: 10-20-2022 Discharged Recurring DO Lakylie Gentile Work Phone: [facility] [place] Work Phone: Start: 09-24-2022 ambulatory JUANA RAYMUNDO Facili ty:[facility] Start: 07-31-2022 End: 07-31-2022 ambulatory JUANA RAYMUNDO Facility: [place] Start: 07-31-2022 Office outpatient vi sit 25 minutes La Gentile [facility] [place] Start: 07-31-2022 End: 08-01-[address] SKYLAR MOSELEY . Facility: Start: 07-30-2022 End: 07-30-[address] SKYLAR MOSELEY . Facility: Start: 07-17-2022 End: 07-17-2022 ambulatory La Gentile Other [employer] Other Start: 07-17-2022 Telephone encounter La Gentile [facility] [place] Start: 07-16-2022 End: 07-16-2022 Emergency department patient visit DO La Gentile Work Phone: [facility] Work Phone: Start: 07-07-2022 End: 07-07-2022 ambulatory La Gentile Other [employer] Other Start: 07-07-2022 Office outpatient vi sit 25 minutes La Gentile [facility] [place] Start: 06-29-2022 Telephone encounter La Gentile [facility] [place] Start: 06-29-2022 End: 06-29-[address] LA GENTILE [employer] Other Start: 06-25-2022 End: 06-25-2022 ambulatory La Gentile Other [employer] Other Start: 06-25-2022 Telephone encounter La Kuns [facility] Start: 06-15-2022 End: 06-15-[address] LA KUNS Facility: Start: 02-26-2022 End: 02-26-2022 ambulatory La Kuns Other [employer] Other Start: 02-26-2022 Telephone encounter La Kuns [facility] Start: 02-18-2022 End: 02-18-2022 ambulatory La Kuns Other [employer] Other Start: 02-18-2022 Telephone encounter La Kuns [facility] Start: 02-17-2022 End: 02-17-2022 ambulatory DO La Kuns Work Phone: [facility] Work Phone: Start: 02-17-2022 End: 02-17-2022 Patient encounter procedure DO La Kuns Work Phone: [facility] Start: 02-16-2022 End: 02-16-2022 ambulatory DO La Kuns Work Phone: [facility] Work Phone: Start: 02-16-2022 End: 02-16-2022 Patient encounter procedure DO La Kuns Work Phone: [facility] [place] Start: 01-26-2022 End: 01-26-2022 ambulatory La Kuns Other [employer] Other Start: 01-26-2022 Telephone encounter La Kuns [facility] Start: 01-06-2022 End: 01-06-2022 ambulatory La Kuns Other [employer] Other Start: 01-06-2022 Telephone encounter La Kuns [facility] Start: 09-18-2021 End: 09-18-2021 ambulatory La Gentile Other [employer] Other Start: 09-18-2021 Nursing evaluation o f patient and report La Gentile [facility] Start: 09-18-2021 Telephone encounter La Gentile [facility] Start: 05-29-2021 End: 05-29-2021 ambulatory La Gentile Other [employer] Other Start: 05-29-2021 Office outpatient vi sit 25 minutes La Gentile [facility] Start: 05-19-2021 End: 05-19-2021 ambulatory La Gentile Other [employer] Other Start: 05-19-2021 Office outpatient vi sit 15 minutes La Gentile [facility] Procedures Date Procedure Procedure Detail Performing Clinician Start: 06-07-2024 IUD REMOVAL Skylarmelly Munson o DO Work Phone: Start: 06-07-2024 Urine test visual color cmprsn meths Skylarmelly Munsono DO Work Phone: Start: 04-27-2024 RECURRENT VAGINITIS (HTRX) Skylarmelly Munsono DO Work Phone: Start: 04-27-2024 IGP,APTIMA HPV,AGE GDLN Skylarmelly Munsono DO Work Phone: Start: 01-15-2023 CT of head without contrast DO [employer] Phone: Start: 01-15-2023 Doppler ultrasonogra phy of bilateral carotid arteries DO [employer] Phone: Start: 07-30-2022 Cytp cerv/vag auto t hin layer prep mnl screen Skylar Lorelei DO Work Phone: Start: 02-17-2022 Radiologic examinati on of knee DO La Gentile Work Phone: Plan of Treatment Date Care Activity Detail Author Start: 05-17-2025 End: 05-17-2025 Patient encounter procedure 05/17/2025 8:30 AM EST Office Visit [facility] [address] [place] [phone] Skylar Moseley, DO [address] [place] [address] [facility] Start: 06-07-2024 End: 06-07-2024 Patient encounter procedure 06/07/2024 3:30 PM EST Procedure Visit [facility] [address] [place] [phone] Skylar Moseley, DO [address] [place] [address] [facility] Start: 06-07-2024 End: 06-07-2025 IUD Removal IUD Removal Procedures Routine Encounter for IUD removal Expected: 06/07/2024 (Approximate), Expires: 06/07/2025 [facility] Work Phone: Comment on above: Expected: 06/07/2024 (Approximate), Expires: 06/07/2025 Start: 04-27-2024 End: 04-27-2024 Patient encounter procedure 04/27/2024 10:00 AM EST Office Visit [facility] [address] [place] [phone] Skylar Moseley, DO [address] [place] [address] Arrived [facility] Comment on above: Arrived Start: 01-15-2023 Doppler ultrasonogra phy of bilateral carotid arteries US carotid doppler [facility] CHLAMYDIA TRACHOMATI S (GENITO/STI) CHLAMYDIA TRACHOMATIS (GENITO/STI) Lab Routine Vaginal itching Ordered: 04/27/2024 [facility] Comment on above: Ordered: 04/27/2024 Comprehensive metabo lic 1999 panel - Serum or Plasma [facility] Comprehensive metabo lic 1999 panel - Serum or Plasma [facility] Neisseria gonorrhoea e DNA [Presence] in Unspecified specimen by JING with probe detection Neisseria gonorrhea DNA probe, direct Lab Routine Vaginal itching Ordered: 04/27/2024 [facility] Comment on above: Ordered: 04/27/2024 Patient Education Back Muscle St rain Low Back Pain ED [facility] Work Phone: Patient referral [facility] Work Phone: SURESWAB(R) ADVANCED VAGINITIS PLUS, TMA SURESWAB(R) ADVANCED VAGINITIS PLUS, TMA Pathology and Cytology Routine Vaginal itching Ordered: 04/27/2024 [facility] Comment on above: Ordered: 04/27/2024 THIN PREP TIS PAP AN D HR HPV DNA THIN PREP TIS PAP AND HR HPV DNA Pathology and Cytology Routine Well woman exam with routine gynecological exam Ordered: 04/27/2024 [facility] Work Phone: Comment on above: Ordered: 04/27/2024 [facility] Immunizations Immunization Date Immunization Notes Care Provider Tony hernandez NEGATED: Highlighted row has not occurred!12-06-2018 influenza, seasonal, injectable Patient Objection La Gentile Other [facility] Payers Date Payer Category Payer Self-pay [id number] 2022 Private Health Insurance [employer] [id number] 2022 Unknown [id number] 1982 Unknown [id number]. 727 1982 Unknown [id number]. 727 1982 Unknown [id number]. 593 1982 Unknown [id number] 2..840.1.594296.3.579.2. 593 1982 Unknown [id number] [id number]. 593 1982 Unknown [id number] .840.1.473347.3.579.2. 593 1982 Unknown [id number] .840.1.450446.3.579.2. 1259 1982 Unknown [id number] .[id number]. 1259 1982 Unknown [id number] .840.1.800119.3.579.2. 1259 1959 Unknown [id number] Private Health Insurance [employer] [id number] Unknown [employer] BC/BS [id number] Unknown HCAP/HFA/FAP Active [id number] Unknown [id number] 531 Unknown [id number]. 531 Social History Date Type Detail Facility Unknown if ever smoked [facility] [employer] Other Sex Assigned At [facility] [employer] Other Start: 02-02-2018 End: 07-16-2022 Tobacco smoking status NHIS Never smoked tobacco (finding) [facility] Start: 1980 Sex Assigned At Female F [facility] Tobacco smoking status OKIS Tobacco smoking consumption unknown [facility] Start: 1980 Sex assigned at Not on file [facility] Start: 06-21-2024 End: 06-22-2024 Sex Female (finding) [facility] Clinical Notes 06-23-2016 to 07-03-2024 Jeanette Higgins - 07/03/2024 10:30 AM ESTMarlow Darling MA - 06/07/2024 3:30 PM Klaudia Snow LPN - 04/27/2024 10:00 AM EST Note Date & Type Note Facility 07-03-2024 History of Presen t illness Narrative Reason for Appointment: Patient ID: Geovanny Conrad is a 44 y.o. female who presents for EMBX and Pre-op Visit Patient presents today for Pre Op/Endometrial Biopsy appointment. Patient is scheduled to undergo Da Gideon assisted Bilateral Laparoscopic Salpingectomy, Endometrial Ablation with Gina, and EMBX (prior to procedure) on 07/28/[address] Moseley at [facility]. MEDICATIONS Current Outpatient Medications Medication Instructions ezetimibe (Zetia) 10 MG tablet TAKE 1 TABLET BY MOUTH EVERY DAY FOR 90 DAYS famotidine (Pepcid) 20 MG tablet Oral ibuprofen 400 MG tablet 1 tablet with food or milk as needed Orally prn rosuvastatin (CRESTOR) 5 mg, Oral, Daily ALLERGIES Allergies Allergen Reactions Doxycycline Other Reaction(s): Unknown Tetracycline Other Reaction(s): Unknown PROBLEMS Active Ambulatory Problems Diagnosis Date Noted Exposure to STD 04/27/2024 Vaginal itching 04/27/2024 Well woman exam with routine gynecological exam 04/27/2024 Resolved Ambulatory Problems Diagnosis Date Noted No Resolved Ambulatory Problems No Additional Past Medical History HISTORY PAST MEDICAL HISTORY SOCIAL HISTORY No past medical history on file. Social History Tobacco Use Smoking status: Not on file Smokeless tobacco: Not on file Substance Use Topics Alcohol use: Not on file Drug use: Not on file FAMILY HISTORY No family history on file. SURGICAL HISTORY No past surgical history on file. REVIEW OF SYSTEMS Review of Systems: Review of Systems Constitutional: Negative. HENT: Negative. Eyes: Negative. Respiratory: Negative. Cardiovascular: Negative. Gastrointestinal: Negative. Genitourinary: Positive for menstrual problem and pelvic pain. Musculoskeletal: Negative. Skin: Negative. Neurological: Negative. All other systems reviewed and are negative. Hematological: Negative. Endocrine: Negative. Allergic/Immunologic: Negative. OBJECTIVE Objective: Physical Exam Constitutional: Appearance: Normal appearance. She is well-developed. Genitourinary: Vulva normal. Genitourinary Comments: Cervical Stenosis noted on exam Cardiovascular: Rate and Rhythm: Normal rate and regular rhythm. Pulmonary: Effort: Pulmonary effort is normal. Breath sounds: Normal breath sounds. Abdominal: General: Bowel sounds are normal. There is no distension. Palpations: Abdomen is soft. Tenderness: There is no abdominal tenderness. There is no guarding or rebound. Musculoskeletal: General: No swelling. Normal range of motion. Right lower leg: No edema. Left lower leg: No edema. Neurological: Mental Status: She is alert and oriented to person, place, and time. Skin: General: Skin is warm and dry. Psychiatric: Mood and Affect: Mood normal. Behavior: Behavior normal. Vitals and nursing note reviewed. Exam conducted with a slot manager present. Vitals: Estimated body mass index is 33.62 kg/m as calculated from the following: Height as of 07/30/22: 5' 3 . Weight as of this encounter: 189 lb 12.8 oz. BP: 126/90 No LMP recorded. Patient has had an implant. ASSESSMENT & PLAN ICD-10-CM 1. Pre-op examination Z01.818 2. Request for sterilization Z30.2 3. Menorrhagia with regular cycle N92.0 4. Abnormal uterine bleeding N93.9 5. Pelvic pain in female R10.2 6. Cervical stenosis (uterine cervix) N88.2 EMBX: Patient was placed in dorsal lithotomy position with feet in stirrups. A sterile speculum was placed into the vagina and the cervix was visualized. The cervix was grasped with a single tooth tenaculum. Endometrial biopsy procedure had to be aborted due to significant cervical stenosis. Patient will have endometrial biopsy performed prior to surgical procedure in the OR. Pre Op: Patient is doing well but has desire for sterilization and has complaints of bleeding and pelvic pain. Patient has tried hormone therapy in the past but all attempts to subside patients issues of bleeding have failed. I have discussed conservative management vs. surgical management with the patient in detail and patient desires surgical management at this time. Patient has voiced understanding that a Bilateral Salpingectomy is considered to be permanent and patient will undergo Da Gideon assisted Bilateral Laparoscopic Salpingectomy, Endometrial Ablation with Gina, and EMBX (prior to procedure) on 07/28/2024. Surgical consents were signed, mmc was reviewed, and patient is to proceed to [facility] OR. Follow Up: Patient is to follow up between 1-2 weeks post op to assess proper healing and recovery from procedure. Documented by Diane Snow LPN on behalf of: Skylar Moseley DO documented in this encounter [facility] 06-07-2024 History of Presen t illness Narrative Associated Order(s): IUD Removal Post-Procedure Diagnose(s): Encounter for IUD removal Reason for Appointment: Patient ID: Geovanny Conrad is a 44 y.o. female who presents for Contraception (Pt present today for Mirena removal/insert) Patient presents today for a IUD Insertion and IUD Removal appointment. MEDICATIONS Current Outpatient Medications Medication Instructions ezetimibe (Zetia) 10 MG tablet TAKE 1 TABLET BY MOUTH EVERY DAY FOR 90 DAYS ibuprofen 400 MG tablet 1 tablet with food or milk as needed Orally prn methocarbamol (Robaxin) 750 MG tablet 1 tablet Orally prn pantoprazole (PROTONIX) 40 mg, Daily rosuvastatin (CRESTOR) 5 mg, Oral, Daily ALLERGIES Allergies Allergen Reactions Doxycycline Other Reaction(s): Unknown Tetracycline Other Reaction(s): Unknown SURGICAL HISTORY History reviewed. No pertinent surgical history. REVIEW OF SYSTEMS Review of Systems: Review of Systems Constitutional: Negative. HENT: Negative. Eyes: Negative. Respiratory: Negative. Cardiovascular: Negative. Gastrointestinal: Negative. Genitourinary: Negative. Musculoskeletal: Negative. Skin: Negative. Neurological: Negative. All other systems reviewed and are negative. Hematological: Negative. Endocrine: Negative. Allergic/Immunologic: Negative. OBJECTIVE Objective: Physical Exam Constitutional: Appearance: Normal appearance. She is well-developed. Genitourinary: Vulva normal. Cardiovascular: Rate and Rhythm: Normal rate and regular rhythm. Pulmonary: Effort: Pulmonary effort is normal. Breath sounds: Normal breath sounds. Abdominal: General: Bowel sounds are normal. There is no distension. Palpations: Abdomen is soft. Tenderness: There is no abdominal tenderness. There is no guarding or rebound. Musculoskeletal: General: No swelling. Normal range of motion. Right lower leg: No edema. Left lower leg: No edema. Neurological: Mental Status: She is alert and oriented to person, place, and time. Skin: General: Skin is warm and dry. Psychiatric: Mood and Affect: Mood normal. Behavior: Behavior normal. Vitals and nursing note reviewed. Exam conducted with a slot manager present. Vitals: Estimated body mass index is 34.37 kg/m as calculated from the following: Height as of 07/30/22: 5' 3 . Weight as of 04/27/24: 194 lb. BP: No LMP recorded. Patient has had an implant. ASSESSMENT & PLAN Assessment/Plan Encounter Diagnosis: ICD-10-CM 1. Encounter for IUD removal Z30.432 IUD Removal 2. Encounter for IUD insertion Z30.430 Levonorgestrel intrauterine device 52 mg POCT , urine manually resulted IUD Removal Date/Time: 06/07/2024 4:43 PM Performed by: Skylar Moseley DO Authorized by: Skylar Moseley DO Consent: Consent obtained: Written Consent given by: Patient Procedure risks and benefits discussed: yes Patient questions answered: yes Patient agrees, verbalizes understanding, and wants to proceed: yes Educational handouts given: yes Instructions and paperwork completed: yes [place] protocol: Patient states understanding of procedure being performed: yes Relevant documents present and verified: yes Test results available and properly labeled: yes Imaging studies available: yes Required blood products, implants, devices, and special equipment available: yes Site marked: yes Procedure: Removed with no complications: yes Removal due to mechanical complications of IUD: no Removal due to infection and inflammatory reaction: no Comments: IUD Removal: Patient presents today for removal of IUD. Written consent was obtained and patient was placed in dorsal lithotomy position with feet in stirrups. A sterile speculum was inserted into the vagina and the cervix was visualized. The IUD strings were grasped gently with forceps and the IUD was removed in its entirety without difficulty. The IUD was shown to the patient then properly discarded. Follow Up: Patient is to return to the office for annual exam unless needed otherwise Unable to insert iud- pt will be signed up for Endometrial ablation and lap bilateral salpingectomy. Documented by Yarelis Darling MA on behalf of: Skylar Moseley DO documented in this encounter [facility] 04-27-2024 History of Presen t illness Narrative Reason for Appointment: Patient ID: Geovanny Conrad is a 43 y.o. female who presents for Gynecologic Exam Patient presents today for Annual Exam. MEDICATIONS Current Outpatient Medications Medication Instructions ezetimibe (Zetia) 10 MG tablet TAKE 1 TABLET BY MOUTH EVERY DAY FOR 90 DAYS ibuprofen 400 MG tablet 1 tablet with food or milk as needed Orally prn Levonorgestrel (Mirena, 52 MG,) 20 MCG/DAY intrauterine device Mirena methocarbamol (Robaxin) 750 MG tablet 1 tablet Orally prn pantoprazole (PROTONIX) 40 mg, Daily rosuvastatin (CRESTOR) 5 mg, Oral, Daily ALLERGIES Allergies Allergen Reactions Doxycycline Other Reaction(s): Unknown Tetracycline Other Reaction(s): Unknown PROBLEMS Active Ambulatory Problems Diagnosis Date Noted No Active Ambulatory Problems Resolved Ambulatory Problems Diagnosis Date Noted No Resolved Ambulatory Problems No Additional Past Medical History HISTORY PAST MEDICAL HISTORY SOCIAL HISTORY No past medical history on file. Social History Tobacco Use Smoking status: Not on file Smokeless tobacco: Not on file Substance Use Topics Alcohol use: Not on file Drug use: Not on file FAMILY HISTORY No family history on file. SURGICAL HISTORY History reviewed. No pertinent surgical history. REVIEW OF SYSTEMS Review of Systems: Review of Systems All other systems reviewed and are negative. OBJECTIVE Objective: Physical Exam Constitutional: Appearance: Normal appearance. She is well-developed. Genitourinary: Vulva normal. Breasts: Breasts are soft. Right: Normal. Left: Normal. Cardiovascular: Rate and Rhythm: Normal rate and regular rhythm. Pulmonary: Effort: Pulmonary effort is normal. Breath sounds: Normal breath sounds. Abdominal: General: Bowel sounds are normal. There is no distension. Palpations: Abdomen is soft. Tenderness: There is no abdominal tenderness. There is no guarding or rebound. Musculoskeletal: General: No swelling. Normal range of motion. Right lower leg: No edema. Left lower leg: No edema. Neurological: Mental Status: She is alert and oriented to person, place, and time. Skin: General: Skin is warm and dry. Psychiatric: Mood and Affect: Mood normal. Behavior: Behavior normal. Vitals and nursing note reviewed. Exam conducted with a slot manager present. Vitals: Estimated body mass index is 34.37 kg/m as calculated from the following: Height as of 07/30/22: 5' 3 . Weight as of this encounter: 194 lb. BP: 118/72 No LMP recorded. Patient has had an implant. ASSESSMENT & PLAN ICD-10-CM 1. Well woman exam with routine gynecological exam Z01.419 THIN PREP TIS PAP AND HR HPV DNA 2. Exposure to STD Z20.2 SURESWAB(R) ADVANCED VAGINITIS PLUS, TMA CHLAMYDIA TRACHOMATIS (GENITO/STI) Neisseria gonorrhea DNA probe, direct Annual: Patient presents today for an annual exam. Patient states she is doing well and has complaints of vaginal itching on/off. Pap was obtained without difficulty and patient given mammogram order to have scheduled/obtained. Discussed IUD removal and reinsertion verses endometrial ablation. Orders Placed This Encounter Procedures CHLAMYDIA TRACHOMATIS (GENITO/STI) Neisseria gonorrhea DNA probe, direct Follow Up: Patient is to return in one year for annual unless needed otherwise. Documented by Diane Snow LPN on behalf of: Skylar Moseley DO documented in this encounter [facility] 02-04-2023 Evaluation note Encounter Date Diagnosis Assessment [...] handout provided .We will continue to monitor. [facility] Other 08-17-2023 Evaluation note* Encounter Date Diagnosis [...] restart the the statin therapy as ordered [facility] Other 03-24-2023 Evaluation note* Encounter Date Diagnosis [...] a bladder sling, and I advised her transportation aid would be the one who would provide this care. She voices understanding. [facility] Other 02-28-2023 Evaluation note* Encounter Date Diagnosis Assessment Notes Treatment Notes Treatment Clinical Notes Jun, Lumbar radiculopathy (ICD-10 - M54.16) Patient was seen in the ER at [facility]. I have reviewed the recent reports with [...] up and proceed from there. Voiced understanding x[facility]ai Other 02-16-2023 Evaluation note* Encounter Date Diagnosis Assessment Notes Treatment Notes Treatment Clinical Notes Jun, Hyperlipidemia (ICD-10 - E78.5) [facility] Other 10-20-2022 Evaluation note* Encounter Date Diagnosis Assessment Notes Treatment Notes Treatment Clinical Notes Feb, Hyperlipidemia (ICD-10 - E78.5) [facility] Other 08-30-2022 Evaluation note* Encounter Date Diagnosis Assessment Notes Treatment Notes Treatment Clinical Notes Dec, Hyperlipidemia (ICD-10 - E78.5) [facility] Other 05-12-2022 Evaluation note* Encounter Date Diagnosis Assessment Notes Treatment Notes Treatment Clinical Notes September, Cough (ICD-10 - R05.9) In house covid and flu test was negative. Dr. Tovar is aware. September, Sore throat (ICD-10 - J02.9) In house covid and flu test was negative. Dr. Tovar is aware. [facility] Other 01-20-2022 Evaluation note* Encounter Date Diagnosis [...] to take OTC Omeprazole twice a day. [facility] Other 01-10-2022 Evaluation note* Encounter Date Diagnosis [...] ordered for patient to have done today. [facility] Other 02-14-2017 History general Narrative - Reported* Type Description Date Medical History Follows with [facility] for Paps Medical History 06-23-16 GXT stress test [facility]- no rmal Medical History 12/06/18 echo Surgical History hematoma 03/2012 Surgical History eptopic 2007 Surgical History D and C 2010 Surgical History 01/2014 Hospitalization History see above [facility] Other Evaluation noteNo InformationNortSocial DJ Other Evaluation noteNo assessment information available [facility] Work Phone: Evaluation note* Author Paulette Gavin [facility] Authored October 21, 2023 9:35 am The above note written by Mario LUONG acting as human recorder, note dictated by Dr. La Gentile. [facility] Work Phone: Evaluation note* Diagnosis Well woman exam with routine gynecological exam Routine gynecological examination Vaginal itching Pruritus of genital organs documented in this encounter [facility] Healthcare[facility] note* Diagnosis Encounter for IUD removal Encounter for IUD insertion Insertion of intrauterine contraceptive device documented in this encounter [facility] Healthcare[facility] note* Diagnosis Onset Date Resolution Status Admit Date Hyperglycemia acute June 222024 9:29am Hyperlipidemia acute June 102024 9:29am Wellness examination acute Febr uary 2024 9:29am [facility] Work Phone: Evaluation note* Diagnosis Pre-op examination Request for sterilization Menorrhagia with regular cycle Abnormal uterine bleeding Unspecified disorder of menstruation and other abnormal bleeding from female genital tract Pelvic pain in female Unspecified symptom associated with female genital organs Cervical stenosis (uterine cervix) Stricture and stenosis of cervix documented in this encounter [facility] Discharge instructions Additional Instructions If your symptoms return/worsen or you develop any further concerns or symptoms please see your doctor or return to the emergency department immediately.[facility] Work Phone: Advance Directives Advance Directive Response Recorded Date/ Time Advance [...] Pain of left heel Plantar fasciitis, left Chief Complaint Admit Date E78.5 February 11th, 2025 1:17pm Chief Complaint Admit Date E78.5 June 20, 2024 1:17pm wellness/review labs June 22, 2024 9:29am Reason for Visit Admit Date Hyperglycemia June 22, 2024 9:29am Hyperlipidemia June 22, 2024 9:29am Wellness examination June 22, 2024 9:29am Summary Purpose Family History Relationship Condition Age at Onset Recorded Date/T luda father Hypertension Unknown Additional Source Comments REASON FOR VISIT (unrecogniz ed section and content) Reason Comments Gynecologic Exam Reason Comments Contraception Pt present today for Mirena removal/insert Reason Comments EMBX Pre-op Visit Care Teams (unrecognized sec tion and content) Team Status: Active Member Role Status Paddy Gentile DO Primary Care Provider Active Team Status: Active Member Role Status Paddy Gentile DO Primary Care Provide r, Attending Provider Active Start: April 10, 2024 Team Status: Active Member Role Status Paddy Gentile DO Primary Care Provider Active Sta rt: April 10, 2024 Ricky Arias DO Attending Provider Active Sta rt: April 10, 2024 Team Status: Active Member Role Status Paddy Gentile DO Primary Care Provider Active Sta rt: April 27, 2024 Skylar Moseley DO Attending Provider Active Start : April 27, 2024 Team Status: Inactive Member Role Status Paddy Gentile DO Primary Care Provide r, Attending Provider Active Start: June 20, 2024 End: June 20, 2024 Team Status: Inactive Member Role Status Paddy Gentile DO Primary Care Provider, Attending Provi mary Active Team Status: Inactive Member Role Status Paddy Gentile DO Primary Care Provider Active Yvan Best DO Emergency Provider Active Team Status: Inactive Member Role Status Paddy Gentile DO Primary Care Provide r, Attending Provider Active Start: October 20, 2023 End: October 20, 2023 Team Status: Inactive Member Role Status Paddy Gentile DO Primary Care Provide r, Attending Provider Active Start: October 21, 2023 End: October 21, 2023 Chief Learning Officer Relationship Specialty Start Date End Date La Gentile DO [address] [place] [phone] PCP - General Family Medicine 04/27/24 Chief Learning Officer Relationship Specialty Start Date End Date La Gentile DO [address] [place] [phone] PCP - General Family Medicine 04/27/24 Chief Learning Officer Relationship Specialty Start Date End Date La Gentile DO [address] [place] [phone] PCP - General Family Medicine 04/27/24 Team Status: Inactive Member Role Status Dates La Gentile DO Primary Care Provide r, Attending Provider Active Start: June 22, 2024 End: June 22, 2024 Goals (unrecognized section and content) Goals may be documented in a n alternate section INFORMATION SOURCE (unrecogn ized section and content) DATE CREATED AUTHOR 08/01/2022 [facility] DATE CREATED AUTHOR AUTHOR'S ORGANIZ ATION 08/11/2022 [facility] DATE CREATED AUTHOR AUTHOR'S ORGANIZ ATION 06/22/2024 [facility] DATE CREATED AUTHOR AUTHOR'S ORGANIZ ATION 07/04/2024 [facility] FOR RECORDS PERTAINING TO PATIENTS WHO ARE [...] BE BASED ON THE PRIMARY CLINICAL RECORDS. [employer] provides no warranty or guarantee of the accuracy or completeness of information in this document.
--- NOTE | 2024-08-24 10:35 | PM.PRESUREVA ---
History of Present Illness History of Present Illness Chief complaint: Request for sterilization, Abnormal uterine bleedi Narrative: Patient presents for presurgical testing. The patient states she had her IUD removed in May, but a new IUD was unable to be inserted due to severe cervical stenosis. The patient states she has heavy painful periods. She denies fever, nausea, vomiting, urinary, or any other complaints. Review of Systems ROS Narrative REVIEW OF SYSTEMS: Negative except as stated in HPI, ten or more systems reviewed. Constitutional: No fever, chills, weakness ENT: No sore throat or epistaxis Cardiovascular: No edema, chest pain, palpitations, or activity intolerance Respiratory: No shortness of breath, cough, or wheezing Musculoskeletal: No joint pain or swelling Gastrointestinal: No abdominal pain, constipation, diarrhea, or vomiting Genitourinary: No dysuria or hematuria Neurological: No numbness, tingling, weakness, or headache Psychiatric: No mood changes PFSH PFS Medical History (Updated 08/24/24 @ 10:34 by Jasmin Andrews NP) Aborted ectopic Back pain ?M54.9 - Dorsalgia, unspecified (ICD-10) History of blood transfusion (2011) ?Z92.89 - Personal history of other medical treatment (ICD-10) Low iron ?E61.1 - Iron deficiency (ICD-10) Headache ?R51.9 - Headache, unspecified (ICD-10) Pelvic pain ?R10.2 - Pelvic and perineal pain (ICD-10) Menorrhagia ?N92.0 - Excessive and frequent menstruation with regular cycle (ICD-10) Abnormal uterine bleeding ?N93.9 - Abnormal uterine and vaginal bleeding, unspecified (ICD-10) GERD (gastroesophageal reflux disease) ?K21.9 - Gastro-esophageal reflux disease without esophagitis (ICD-10) High cholesterol ?E78.00 - Pure hypercholesterolemia, unspecified (ICD-10) Postoperative nausea and vomiting ?R11.2 - Nausea with vomiting, unspecified (ICD-10) ?Z98.890 - Other specified postprocedural states (ICD-10) Ectopic ?O00.90 - Unspecified ectopic without intrauterine (ICD-10) Cervical stenosis (uterine cervix) ?N88.2 - Stricture and stenosis of cervix uteri (ICD-10) Surgical History (Updated 08/24/24 @ 10:23 by Jasmin Andrews NP) History of section ?Z98.891 - History of uterine scar from previous surgery (ICD-10) History of dilation and curettage ?Z98.890 - Other specified postprocedural states (ICD-10) Family History (Updated 08/24/24 @ 10:23 by Jasmin Andrews NP) Other Family history of cancer Family history of hypertension Family history of myocardial infarction Social History (Updated 08/24/24 @ 10:20 by Jasmin Andrews NP) Within the past year, how often did you have a drink containing alcohol: monthly or less Smoking status: Never smoker Non-prescribed substance use: denies use Previous occupational history: [employer] Highest level of school completed/degree received: Associate degree: occupational, technical, vocational program Little interest or pleasure in doing things: not at all Feeling down, depressed, or hopeless: not at all Meds Home Medications and Allergies Home Medications ?Medication ?Instructions ?Recorded ?Confirmed ?Type ezetimibe 10 mg tablet 10 mg PO DAILY 04/10/24 08/24/24 History famotidine 40 mg tablet (Pepcid) 40 mg PO DAILY 04/10/24 08/24/24 History rosuvastatin 5 mg tablet 5 mg PO DAILY 04/10/24 08/24/24 History ibuprofen 600 mg tablet (IBU) 600 mg PO Q8H 08/24/24 08/24/24 History Allergies Allergy/AdvReac Type Severity Reaction Status Date / Time tetracycline Allergy Abdominal Verified 08/24/24 10:17 Pain doxycycline AdvReac Intermediate Abdominal Verified 04/10/24 05:53 Pain Exam Narrative Exam Narrative: Constitutional: Awake, alert, comfortable, well-appearing, nontoxic, interactive, vital signs as charted Head: Normocephalic, atraumatic Neck: Supple, normal appearance, normal range of motion, no meningeal signs, no lymphadenopathy Respiratory: No respiratory distress, breath sounds clear Cardiovascular: Regular rate and rhythm, strong and regular heart tones Abdomen: Nontender, normal bowel sounds, soft, no CVA tenderness Musculoskeletal: Normal gait, no swelling or edema Skin: No rashes or induration, no lesions, only visible skin inspected Neuro: No neurological deficits, normal sensation Psychiatric: Oriented ?3, normal affect Assessment and Plan Assessment and Plan (1) Cervical stenosis (uterine cervix): (2) Abnormal uterine bleeding: (3) Menorrhagia: (4) Pelvic pain: Plan D&C, hysteroscopy, possible Myosure, Mirena IUD insertion scheduled with Dr. Moseley August 31, 2024.
== END 2024-08-24 10:00 | disposition home or self-care (01) ==
PROVIDERS: PCP Family Medicine; Visit Provider Obstetrics & Gynecology
DX: Z01.818 Encounter for other preprocedural examination (principal); N92.0 Excessive and frequent menstruation with regular cycle; N93.9 Abnormal uterine and vaginal bleeding, unspecified; R10.2 Pelvic and perineal pain; N88.2 Stricture and stenosis of cervix uteri
CPT/HCPCS: G0463

== ENCOUNTER 2024-08-31 06:23 | Day surgery (SDC) | payer OTHER, SELFPAY ==
[2024-08-24 10:30] VITALS: BP 110/75; PULSE 75; TEMP 36.4; O2SAT 98; BMI 33.4
[2024-08-31 06:29] LABS: Basophils Percent Auto 0.5 % (0.2-2.0); Eosinophils Absolute Auto 0.1 10^3/uL (0.0-0.7); Eosinophils Percent Auto 0.8 % (0.9-7.0); Hematocrit 39.1 % (36.0-48.0); Immature Granulocytes Abs Auto 0.01 10^3/uL (0.00-0.03); Immature Granulocytes Pct Auto 0.2 % (0.0-0.5); Lymphocytes Absolute Auto 1.4 10^3/uL (1.2-3.8); Lymphocytes Percent Auto 22.2 % (20.5-60.0); Mean Corpuscular HGB Conc 33.2 g/dL (29.9-35.2); Mean Corpuscular Hemoglobin 28.6 pg (26.7-34.0); Mean Corpuscular Volume 86.1 fL (81.0-99.0); Mean Platelet Volume 10.8 fL (9.5-13.5); Monocytes Absolute Auto 0.4 10^3/uL (0.3-0.8); Monocytes Percent Auto 6.2 % (1.7-12.0); Neutrophils Absolute Auto 4.6 10^3/uL (1.4-6.5); Neutrophils Percent Auto 70.1 % (43.0-75.0); Platelet Count 240 10^3/uL (150-450); Red Blood Count 4.54 10^6/uL (4.20-5.40); Red Cell Distribution Width 12.6 % (11.0-15.0); White Blood Count 6.5 10^3/uL (4.0-11.0)
[2024-08-31 06:40] VITALS: BP 147/88; PULSE 99; TEMP 36.1; O2SAT 96; BMI 33.0
[2024-08-31 07:01] LABS: HCG Quantitative <1 mIU/mL
[2024-08-31] MEDS: LACTATED RINGER'S SOLUTION 1,000 ML 50 ML IV (07:15)
[2024-08-31] MEDS: SCOPOLAMINE 1 MG/3 DAYS TRANSDERM PATCH 1 PATCH TD (07:16)
--- NOTE | 2024-08-31 08:42 | PM.ONB ---
Brief Operative Note Date of procedure: 08/31/24 Pre-op diagnosis general: cervical stenosis Post-op diagnosis: same as pre-op Procedure: NAME OF PROCEDURE: [ D&c hysteroscopy, placement of iud] PROCEDURE: The patient was taken back to the Operating Room where she was prepped and draped in normal sterile fashion after being placed under general anesthesia without difficulty. She was also placed in the dorsal lithotomy position. A weighted speculum was placed in the patient?s vagina. The anterior lip of the cervix was identified and grasped with a single tooth tenaculum. The patient?s uterus was then sounded roughly to [? 8] cm. The patient was then gently dilated using Hegar dilators. The hysteroscope was passed through the patient?s cervix into the uterus. Both ostia were identified. fluffy appearing endometrium. No gross evidence of malignancy, no gross evidence of polyps or fibroids. The hysteroscope was then removed from the uterus. gentle currettage was performed and endometrial currettings obtained. The endometrial curettings were sent out to pathology. please note iud was placed without difficulty. The single tooth tenaculum was then removed from the patient's anterior lip of the cervix where excellent hemostasis was noted. All instruments were removed from the patient?s vagina. The patient tolerated the procedure well. Sponge, lap and needle counts were correct times two. The patient was taken to the Recovery Room in stable condition.Room in stable condition. Anesthesia: MAC Surgeon: Carlyle Moseley Estimated blood loss (mL): 5 Pathology: other (endometrial currettings) Condition: stable Disposition: floor Urinary Catheter Management Urinary Catheter Management Urethral: Cath placed during this visit: no
[2024-08-31 08:43] VITALS: BP 124/64; PULSE 92; TEMP 36.8; O2SAT 95
[2024-08-31 08:58] VITALS: BP 152/67; PULSE 94; O2SAT 96
[2024-08-31 09:32] VITALS: BP 152/67; PULSE 94; O2SAT 96
== END 2024-08-31 09:32 | disposition home or self-care (01) ==
PROVIDERS: PCP Family Medicine; Visit Provider Obstetrics & Gynecology
PROC: (CPT 00952; principal; 2024-08-31 07:30)
DX: N92.0 Excessive and frequent menstruation with regular cycle (principal); N93.9 Abnormal uterine and vaginal bleeding, unspecified; R10.2 Pelvic and perineal pain; N88.2 Stricture and stenosis of cervix uteri; E78.5 Hyperlipidemia, unspecified
CPT/HCPCS: 00952; 58300; 58558; 36415; 84702; 85025; 88305; J1100; J1885; J2250; J2405; J2704; J3010